=== PATIENT | male | born 1955 | race African-American/Black ===

== ENCOUNTER 2020-05-07 05:20 | Inpatient (IN) | payer OTHER, MEDICAID ==
[~2020-05-07] VITALS: Ht 182.9 cm; Wt 45.7 kg
[2020-05-07] VITALS (9 sets, daily range): BP systolic 127–151; BP diastolic 83–96
[~2020-05-07 05:20] MED LIST: AMLO5TAB15 PO; ASPI81CH43 GT; ATOR40TA52 PO; CINA30TA2 PO; CINA60TA; CLON0.2T PO; CLOT10TR PO; DOCU-94 PO; ERGO1CAP6 PO; FOLI0.8T2 PO; HYDR-4298 PO; LEVE500T32 PO; MAGN400T21 PO; MED20T PO; METO-281 PO; MIRT15TA PO; MIRT30TA PO; MYCO360T; MYCO500T PO; NORT25CA PO; OMEP20TA44 PO; PANC3600 OR; PERCOT PO; PROGRAF 1 MG; SERT25TA84 PO; TACR1CAP4 PO; TAM04C PO; TER5T PO
[2020-05-07] MEDS ORDERED: ETOMIDATE (2MG/ML) 20ML VIAL IV ONE ×2 (05:26→06:45)
[2020-05-07] MEDS ORDERED: SUCCINYLCHOLINE CHLORIDE 20 MG/ML 10ML VIAL IV ONE ×2 (05:27→06:45)
[2020-05-07] MEDS ORDERED: NALOXONE HCL 1MG/ML 2ML SYRINGE ONE (05:30)
[2020-05-07] MEDS ORDERED: MIDAZOLAM DRIP 50 mg/50mL 50 ML IV ONE (05:42)
[2020-05-07 06:22] LABS: Basophils # (auto) 0 10 ^3/uL (0-0.2); Hemoglobin 11.2 g/dL (13.5-17.5); Monocytes # (auto) 0.2 10 ^3/uL (0-1.3); Neutrophils # (auto) 2.2 10 ^3/uL (1.6-8.6); White Blood Cell 3.9 10^3/uL (4.4-10.8)
[2020-05-07 06:24] LABS: Basophils % (auto) 0.5 % (0.0-2.0); Eosinophils # (auto) 0 10 ^3/uL (0-0.8); Eosinophils % (auto) 0.8 % (0.0-7.0); Hematocrit 37.3 % (41.0-53.0); Lymphocytes # (auto) 1.5 10 ^3/uL (0.4-5.4); Lymphocytes % (auto) 37.5 % (10.0-50.0); Mean Corpuscular Hemoglobin 26.3 pg (28.0-32.0); Mean Corpuscular Hgb Conc. 29.9 g/dL (32.0-36.0); Mean Corpuscular Volume 87.9 fL (80.0-100.0); Monocytes % (auto) 4.4 % (0.0-12.0); Neutrophils % (auto) 56.8 % (37.0-80.0); Nucleated Red Blood Cells % 0.2 %; Platelet Count (auto) 95 10^3/uL (140-450); Red Blood Cells 4.24 10^6/uL (4.5-5.90); Red Cell Distribution Width 18.6 % (11.8-14.3); Urine Bacteria FEW /hpf (None Seen); Urine Blood Negative /uL (Negative); Urine Specific Gravity 1.013 (1.001-1.035); Urine WBC 1 /hpf (0 - 3)
--- NOTE | 2020-05-07 06:32 | NUR ---
TITRATED FIO2 TO 90%. SPO2 100%.
[2020-05-07 06:43] LABS: Lactic Acid w/Reflex 2.3 mmol/L (0.4-2.0)
[2020-05-07 06:44] LABS: INR 1.23 (0.9-1.15); Partial Thromboplastin Time 33.3 sec (23.0-31.2)
[2020-05-07] MEDS ORDERED: NALOXONE HCL 1MG/ML 2ML SYRINGE IV ONE (06:45)
[2020-05-07 07:03] LABS: Albumin 1.9 g/dL (3.4-5.0); Anion Gap 5 (5-15); Blood Urea Nitrogen 26 mg/dL (7-18); Calcium 10.2 mg/dL (8.5-10.1); Carbon Dioxide 22 mmol/L (21-32); Chloride 114 mmol/L (98-107); Magnesium 2.1 mg/dL (1.6-2.6); Potassium 4.5 mmol/L (3.5-5.1); Sodium 141 mmol/L (136-145)
[2020-05-07 07:04] LABS: Alcohol, Urine < 3.0 mg/dL (0-10); Amphetamine Screen, Urine NEGATIVE (NEGATIVE); Barbiturate Scree,Urine NEGATIVE (NEGATIVE); Benzodiazephine Screen, Urine NEGATIVE (NEGATIVE); Cannabinoid Screen, Urine NEGATIVE (NEGATIVE); Cocaine Screen, Urine NEGATIVE (NEGATIVE); Opiate Scree,Urine NEGATIVE (NEGATIVE); Phencyclidine Screen, Urine NEGATIVE (NEGATIVE)
[2020-05-07 07:12] LABS: Alanine Aminotransferase 38 U/L (16-61); Alkaline Phosphatase 96 U/L (45-117); Aspartate Aminotransferase 42 U/L (15-37); BUN/Creatinine Ratio 8.1; Bilirubin, Total 0.3 mg/dL (0.2-1.0); GFR African American 25 mL/min; GFR Non-African American 21 mL/min
[2020-05-07] MEDS: MIDAZOLAM DRIP 50 mg/50mL 50 ML IV SCH (07:15)
[2020-05-07 07:35] LABS: Blood Alcohol < 3.0 mg/dL (0-5)
[2020-05-07 07:36] LABS: Glucose 525 mg/dL (74-106)
[2020-05-07] MEDS ORDERED: AZITHROMYCIN 500MG/ 250ML 250 ML IV ONE (08:00)
[2020-05-07] MEDS ORDERED: cefTRIAXone 1GM/50ML D5W 50 ML IV ONE (08:00)
[2020-05-07] MEDS ORDERED: DexAMETHasone SOD PHOS 10MG/1ML VIAL INJ IV ONE (08:00)
[2020-05-07] MEDS ORDERED: InsuLIN REG 1unit/0.01ml Soln (100units/ml) IV ONE (09:00)
[2020-05-07] MEDS ORDERED: SODIUM CHLORIDE 0.9% 1,000 ML IV SCH (09:07)
[2020-05-07] MEDS ORDERED: MORPHINE SULF INJ 2 MG/ML SYRINGE 1ML IV PRN ×2 (09:15)
[2020-05-07] MEDS ORDERED: DEXTROSE (50%) 50ML SYRG IV PRN (09:15)
[2020-05-07] MEDS ORDERED: ALBUTEROL SULF 2.5 MG/0.5ML(0.5%) NEB SOLN NEB PRN (09:15)
[2020-05-07] MEDS ORDERED: NITROGLYCERIN 0.4 MG SL TAB SL PRN (09:15)
[2020-05-07] MEDS ORDERED: PIPERACILLIN-TAZOB 2.25GM 50 ML IV ONE (10:00)
[2020-05-07] MEDS ORDERED: ZINC SULFATE 220mg CAP or TAB PO SCH (10:00)
[2020-05-07] MEDS ORDERED: ASCORBIC ACID 1,000 MG TAB NG SCH (10:00)
[2020-05-07] MEDS: AZITHROMYCIN 500MG/ 250ML 250 ML IV SCH (10:00)
[2020-05-07] MEDS ORDERED: DexAMETHasone SOD PHOS 10MG/1ML VIAL INJ IV SCH (10:00)
[2020-05-07] MEDS ORDERED: CHOLECALCIFEROL (VITD3) 2,000 UNIT CAP PO SCH (10:00)
[2020-05-07] MEDS ORDERED: ENOXAPARIN SOD 30 MG/0.3 ML SYRINGE SC SCH (10:00)
[2020-05-07] MEDS: FOLIC ACID PO SCH (10:00)
[2020-05-07] MEDS ORDERED: CHOLECALCIFEROL (VITD3) 1,000UNIT=25mCg TAB GT SCH (11:10)
[2020-05-07] MEDS: ASPirin 81 mg TAB GT SCH (11:14)
[2020-05-07] MEDS: levETIRAcetam 500 MG TAB PO SCH ×2 (11:16→22:10)
[2020-05-07 11:39] LABS: Acetaminophen 4.2 ug/mL (10-30); Salicylate < 1.7 mg/dL (2.8-20.0)
[2020-05-07] MEDS: LINEZOLID 600MG/300ML 300 ML IV SCH ×2 (12:39→22:08)
[2020-05-07] MEDS: MYCOPHENOLATE 500 MG TAB PO SCH ×2 (12:39→22:00)
[2020-05-07] MEDS: TACROLIMUS 1 MG CAP PO SCH ×2 (12:40→22:00)
[2020-05-07] MEDS: ACCU-CHEK COMFORT CURVE STRIP VI SCH ×4 (13:42→23:56)
[2020-05-07] MEDS: IPRATROPIUM BROM 0.5 MG/2.5ML INH SOL NEB SCH ×2 (13:46→18:00)
[2020-05-07] MEDS: ALBUTEROL SULF 2.5 MG/0.5ML(0.5%) NEB SOLN NEB SCH ×2 (13:46→18:00)
[2020-05-07] MEDS: InsuLIN REG 1unit/0.01ml Soln (100units/ml) SC SCH ×4 (13:53→23:57)
--- NOTE | 2020-05-07 14:35 | NUR ---
PT TRANSPORTED TO CT WITH NO INCIDENT REPORTED. VENTILATED PT WITH AMBUBAG. PT ON CARDIAC MONITORING WITH SPO2 100%. WILL CONTINUE TO MONITOR PT.
[2020-05-07] MEDS: SODIUM BICARBONATE 50ML VIAL 50 ML in SOD CHL 0.45% 1,000 ML IV SCH ×2 (15:03→23:45)
[2020-05-07] MEDS: PIPERACILLIN-TAZOB 2.25GM 50 ML IV SCH (18:24)
[2020-05-07] MEDS: MIRTAZAPINE 30 MG TAB PO SCH (18:25)
[2020-05-07] MEDS: ATORVASTATIN 20 MG TAB PO SCH (22:10)
[2020-05-08] VITALS (54 sets, daily range): BP systolic 122–141; BP diastolic 71–99
[2020-05-08] MEDS: PIPERACILLIN-TAZOB 2.25GM 50 ML IV SCH ×4 (00:13→22:00)
[2020-05-08] MEDS: ALBUTEROL SULF 2.5 MG/0.5ML(0.5%) NEB SOLN NEB SCH ×4 (01:10→18:30)
[2020-05-08] MEDS: IPRATROPIUM BROM 0.5 MG/2.5ML INH SOL NEB SCH ×4 (01:10→18:30)
[2020-05-08] MEDS: InsuLIN REG 1unit/0.01ml Soln (100units/ml) SC SCH ×2 (04:32→08:30)
[2020-05-08] MEDS: ACCU-CHEK COMFORT CURVE STRIP VI SCH ×2 (04:33→08:00)
[2020-05-08 06:04] LABS: Basophils # (auto) 0 10 ^3/uL (0-0.2); Basophils % (auto) 0.4 % (0.0-2.0); Eosinophils # (auto) 0 10 ^3/uL (0-0.8); Eosinophils % (auto) 0.1 % (0.0-7.0); Hematocrit 36.9 % (41.0-53.0); Hemoglobin 11.8 g/dL (13.5-17.5); Lymphocytes # (auto) 1.4 10 ^3/uL (0.4-5.4); Lymphocytes % (auto) 31.4 % (10.0-50.0); Mean Corpuscular Hemoglobin 26.6 pg (28.0-32.0); Mean Corpuscular Hgb Conc. 32.1 g/dL (32.0-36.0); Mean Corpuscular Volume 83.1 fL (80.0-100.0); Monocytes # (auto) 0.2 10 ^3/uL (0-1.3); Monocytes % (auto) 4.9 % (0.0-12.0); Neutrophils # (auto) 2.9 10 ^3/uL (1.6-8.6); Neutrophils % (auto) 63.2 % (37.0-80.0); Nucleated Red Blood Cells % 0.1 %; Platelet Count (auto) 103 10^3/uL (140-450); Red Blood Cells 4.44 10^6/uL (4.5-5.90); Red Cell Distribution Width 18.4 % (11.8-14.3); White Blood Cell 4.6 10^3/uL (4.4-10.8)
[2020-05-08 06:16] LABS: Calcium 10.5 mg/dL (8.5-10.1); Potassium 4.7 mmol/L (3.5-5.1)
[2020-05-08 06:20] LABS: Bilirubin, Total 0.3 mg/dL (0.2-1.0); Total Protein 5.2 g/dL (6.4-8.2)
[2020-05-08] MEDS: MIDAZOLAM DRIP 50 mg/50mL 50 ML IV SCH (06:51)
--- NOTE | 2020-05-08 09:00 | NUR ---
RT NOTE: PT TRANSPORTED TO ICU BED 103 VIA AMBU BAG AT 15L. 2 RNS AND RT AT BEDSIDE. TRANSPORT OCCURED W/O INCIDENT. TRANSFERED TO ICU BED AND PLACED BACK ONTO VENT. WILL CONTINUE TO MONITOR.
[2020-05-08] MEDS: FOLIC ACID PO SCH (10:00)
[2020-05-08] MEDS: TACROLIMUS 1 MG CAP PO SCH ×2 (10:00→22:00)
--- NOTE | 2020-05-08 10:30 | NUR ---
Midline Placement (x2): 18g/10cm midline inserted via right basilic vein and left brachial using Ultrasound. Sterile technique utilized. Blood return obtained from each lumen and flushed easily with NS using proper technique. Midlines secured with saline lock; biodisc and occlusive dressings applied. Primary RN notified. RUE Midline lot #[id number] CORKYE Midline lot #[id number]
[2020-05-08] MEDS: ASPirin 81 mg TAB GT SCH (11:01)
[2020-05-08] MEDS: ENOXAPARIN SOD 30 MG/0.3 ML SYRINGE SC SCH (11:01)
[2020-05-08] MEDS: levETIRAcetam 500 MG TAB PO SCH ×2 (11:02→22:00)
[2020-05-08] MEDS: MYCOPHENOLATE 1000mg/5ml ORALsusp 200mg/ml PO SCH ×2 (11:02→22:00)
[2020-05-08] MEDS: AZITHROMYCIN 500MG/ 250ML 250 ML IV SCH (11:02)
[2020-05-08] MEDS: SODIUM BICARBONATE 50ML VIAL 50 ML in SOD CHL 0.45% 1,000 ML IV SCH (11:03)
--- NOTE | 2020-05-08 11:55 | NUR ---
Admit to ICU from ER on vent. Arrived at 0901 [place] ALCOCERdmitted to ICU via gurney on monitoring analyst, intubated and being bagged by Respiratory Therapist. Patient transfered to bed, connected to mechanical ventilator by Anna therapistSASHA at bedside. Patient connected to ICU monitoring, oriented to Sarah Lobo, RN primary RN, unit, ventilator and sedation. NOTE: Received report from Jermaine COLLIER. Being treated for multiple problems. Arrived with sedation ifusing, Versed at 5mg/hour. Does attempt to open eyes when spoken to and does move head and arms when stimulated. Noted ecchymosis to left flank area. Also dried abrasion/scab to left knee. Both arms swollen, left greater than right. Ultrasound study done to left arm, negative for DVT. Arrived to hospital with existing PICC line to right upper chest area. Per chest xray in to deep. Not utilizing line. Cindy COLLIER (PICC line nurse) was in to evalutate line. Per Cindy not familiar with line. Placed to midlines. One in the right upper arm and one in the left upper arm. Dr. Richey will resumed care. In to round at 1105. Disscussed condition and plan of care. Dr. Ventura was consulted for pulmonary consult (ventilator management). In at 1115 and discussed new order. Dr. Pandey, package wrapper on case and was also in at 1105. Discussed condition and reveiwed orders. Collected urine and sent to lab.
[2020-05-08 12:10] LABS: Creatinine, Urine 44 mg/dL (30.0-125.0); Sodium Urine 90 mmol/L (40-220)
[2020-05-08] MEDS ORDERED: PANTOPRAZOLE 40 MG/10 ML VIAL INJ IV ONE (13:15)
[2020-05-08] MEDS: LINEZOLID 600MG/300ML 300 ML IV SCH (13:24)
--- NOTE | 2020-05-08 15:31 | NUR ---
Held scheduled Folic Acid. Home medication and unavailable. Will have to hold scheduled 1800 Prograf dose, can not crush or break. Josselin Rush SEQUENCING MACHINE OPERATOR in unit at 1518. Discussed Echocardiogram findings; small pericardial effusion. Contacted Dr. Richey and talita to place a Cardiology consult with Dr. Roberts.
[2020-05-08] MEDS: MIRTAZAPINE 30 MG TAB PO SCH (18:38)
--- NOTE | 2020-05-08 19:20 | NUR ---
Attempted to call family twice earlier today and received a call from Anahi Carrington (). Discussed admission, updated on condition and plan of care. Large right side pleural effusion and Thoracentesis scheduled for tomorrow with Dr. Kruse. Procedure discussed and obtained consent from .
--- NOTE | 2020-05-08 19:40 | NUR ---
REPORT RECEIVED AND ASSUMED CARE; SEE INTERVENTIONS FOR ASSESSMENT; VS STABLE AT THIS TIME W/ EXCEPTION OF TEMP= 39.0 F/RECTALLY-WARMING MEASURES STARTED WITH BEAR HUGGER ON AT MAX/WARM BLANKETS ON/HEATING LIGHT ON; SEE IV SPREADSHEET FOR GTTS; WILL CONT. TO MONITOR.
--- NOTE | 2020-05-08 20:00 | NUR ---
Unable to complete suicide severity rating scale and guidelines to risk level. Intubated and sedated and unable to answer. Per patient is on Prograf, Myfortic, Cellcept and Tacrolimus secondary to kidney transplant.
--- NOTE | 2020-05-08 21:00 | NUR ---
NO SEDATION VACATION PERFORMED-NOT APPROPRIATE AT THIS TIME.
[2020-05-08] MEDS: ATORVASTATIN 20 MG TAB PO SCH (22:00)
[2020-05-09] VITALS (66 sets, daily range): BP systolic 104–156; BP diastolic 63–92
[2020-05-09] MEDS: ALBUTEROL SULF 2.5 MG/0.5ML(0.5%) NEB SOLN NEB SCH ×4 (00:23→18:39)
[2020-05-09] MEDS: IPRATROPIUM BROM 0.5 MG/2.5ML INH SOL NEB SCH ×4 (00:23→18:39)
[2020-05-09] MEDS: LINEZOLID 600MG/300ML 300 ML IV SCH ×2 (03:20→12:00)
[2020-05-09] MEDS: PIPERACILLIN-TAZOB 2.25GM 50 ML IV SCH ×4 (05:25→22:00)
[2020-05-09 05:39] LABS: Basophils # (auto) 0 10 ^3/uL (0-0.2); Basophils % (auto) 0.6 % (0.0-2.0); Eosinophils # (auto) 0.1 10 ^3/uL (0-0.8); Hemoglobin 10.7 g/dL (13.5-17.5); Lymphocytes # (auto) 1.1 10 ^3/uL (0.4-5.4); Monocytes # (auto) 0.2 10 ^3/uL (0-1.3); Red Cell Distribution Width 18.4 % (11.8-14.3)
[2020-05-09 05:42] LABS: Eosinophils % (auto) 2.7 % (0.0-7.0); Lymphocytes % (auto) 34.9 % (10.0-50.0); Mean Corpuscular Hemoglobin 26.1 pg (28.0-32.0); Mean Corpuscular Hgb Conc. 31.4 g/dL (32.0-36.0); Mean Corpuscular Volume 83.3 fL (80.0-100.0); Monocytes % (auto) 7.1 % (0.0-12.0); Neutrophils # (auto) 1.7 10 ^3/uL (1.6-8.6); Neutrophils % (auto) 54.7 % (37.0-80.0); Platelet Count (auto) 96 10^3/uL (140-450); Red Blood Cells 4.09 10^6/uL (4.5-5.90)
[2020-05-09 05:55] LABS: Albumin 1.7 g/dL (3.4-5.0); Calcium 9.9 mg/dL (8.5-10.1); Potassium 4.3 mmol/L (3.5-5.1)
[2020-05-09 06:02] LABS: BUN/Creatinine Ratio 9.6; Bilirubin, Total 0.4 mg/dL (0.2-1.0); Total Protein 4.4 g/dL (6.4-8.2)
[2020-05-09] MEDS: MIDAZOLAM DRIP 50 mg/50mL 50 ML IV SCH (06:42)
--- NOTE | 2020-05-09 07:30 | NUR ---
REPORT RECEIVED FROM TURRET PRESS OPERATOR NURSE. PATIENT RESTING IN BED INTUBATED AND SEDATED. RESPIRATIONS EVEN AND UNLABORED. NO SIGNS OF ACUTE DISTRESS NOTED. BED IN LOW POSITION. WILL CONTINUE TO MONITOR.
[2020-05-09] MEDS ORDERED: FUROSEMIDE 40 MG/4 ML VIAL IV ONE (08:30)
--- NOTE | 2020-05-09 08:35 | NUR ---
SPOKE TO PHARMACY ABOUT PROGRAFT MEDICATION AND UNABLE TO CRUSH PILL, PER PHARMACIST OK TO OPEN CAPSULE AND ADMINISTER THROUGH NGT.
--- NOTE | 2020-05-09 08:38 | NUR ---
WOUND CARE NOTE: Wound care in to see patient due to intubation status and low Rod score of 12, putting patient to high risk for skin breakdown. Patient is 64 years old male with admitting diagnosis of Acute Resp Failure, ALOC. Patient is resting in ICU bed in Rm. 103. Patient is intubated,sedated and mechanically ventilated. Patient appears to be in no pain using Browning Zhao Faces Pain Scale. Skin assessment done with the assistance of patient's nurse, AMIRA Mai. No open wound noted other than dry, scabbed wounds to bilateral knee, large ecchymosis to L lateral rib cage area. Patient also noted with generalized edema prominent to arms and BLE; staff is elevating patient's edematous extremities on pillows. Patient is receiving BID/PRN cleaning and application of Barrier cream to sacrum with preventative Opti foam sacral dressing. Repositioned patient for comfort facing his Lt side, redistributed pressure points with pillows. Patient tolerated well. AMIRA Mai at bedside. RECOMMENDATION: Nursing to continue with BID/PRN cleaning and application of Barrier cream to sacral, buttocks as preventative, frequent turning and repositioning schedule as condition permits, redistribute pressure points with pillows, elevate heels on pillows, continue monitoring by wound care while patient is mechanically ventilated and Rod score is <18. Addendum: 05/09/20 at 1238 by Ene Louie RN Amended: Links added.
--- NOTE | 2020-05-09 08:40 | NUR ---
WOUND CARE NURSE AT BEDSIDE TO ASSESS PATIENT.
--- NOTE | 2020-05-09 09:15 | NUR ---
DR GAITAN AT BEDSIDE TO ASSESS PATIENT AND DISCUSS PLAN OF CARE. PER MD AFTER THORACENTESIS COMPLETED STOP SEDATIONS AND CPAP PATIENT WHEN AWAKE. INFORMED RESPIRATORY THERAPIST.
[2020-05-09] MEDS: FOLIC ACID PO SCH (10:00)
[2020-05-09] MEDS: AZITHROMYCIN 500MG/ 250ML 250 ML IV SCH (10:30)
--- NOTE | 2020-05-09 10:45 | NUR ---
DR PASTRANA AT BEDSIDE WITH IRON LAUNDER OPERATOR AND RADIOLOGY NURSE TO PERFORM THORACENTESIS. REMOVED 850ML FROM THE RIGHT LUNG. PATIENT TOLERATED WELL, VITAL SIGNS STABLE. WILL CONTINUE TO MONITOR.
--- NOTE | 2020-05-09 11:12 | NUR ---
UPDATED ON PATIENT STATUS AND PLAN OF CARE. ALL QUESTIONS AND CONCERNS ADDRESSED AT THIS TIME.
[2020-05-09] MEDS: PANTOPRAZOLE 40 MG/10 ML VIAL INJ IV SCH (11:17)
[2020-05-09] MEDS: ENOXAPARIN SOD 30 MG/0.3 ML SYRINGE SC SCH (11:17)
[2020-05-09] MEDS: ASPirin 81 mg TAB GT SCH (11:17)
[2020-05-09] MEDS: TACROLIMUS 1 MG CAP PO SCH ×2 (11:17→22:00)
[2020-05-09] MEDS: levETIRAcetam 500 MG TAB PO SCH ×2 (11:17→22:00)
[2020-05-09] MEDS: MYCOPHENOLATE 1000mg/5ml ORALsusp 200mg/ml PO SCH ×2 (11:19→22:00)
--- NOTE | 2020-05-09 11:40 | NUR ---
DR JEFFERSON AT BEDSIDE TO ASSESS PATIENT AND DISCUSS PLAN OF CARE. PER MD PATIENT NO LONGER NEEDS SODIUM BICARBONATE DRIP. PER MD START PATIENT ON ALBUMIN 25% 100ML Q12HR X4 DOSES. ALL ORDERS NOTED IN CHART.
--- NOTE | 2020-05-09 12:08 | NUR ---
Nutrition Assessment Notes Please refer to link for full assessment notes. Est Energy needs: 3472-4825 kcals (30-35 kcal/kgBW) Est Protein needs: 51-57 gms/day (0.8-0.9 gm/kgBW) d/t pt with ESRD, no HD Will continue to monitor and reassess prn. Addendum: 05/09/20 at [address] Amended: Links added.
[2020-05-09] MEDS ORDERED: FLUCONAZOLE 200MG/100ML 100 ML IV ONE (16:30)
[2020-05-09] MEDS: MIRTAZAPINE 30 MG TAB PO SCH (18:00)
[2020-05-09] MEDS: ATORVASTATIN 20 MG TAB PO SCH (22:00)
[2020-05-09] MEDS: ALBUMIN 25% 100 ML IV SCH (22:00)
[2020-05-10] VITALS (44 sets, daily range): BP systolic 130–178; BP diastolic 77–118
[2020-05-10] MEDS: IPRATROPIUM BROM 0.5 MG/2.5ML INH SOL NEB SCH ×4 (00:36→19:16)
[2020-05-10] MEDS: ALBUTEROL SULF 2.5 MG/0.5ML(0.5%) NEB SOLN NEB SCH ×4 (00:37→19:16)
--- NOTE | 2020-05-10 02:12 | NUR ---
ACCUCHECK = 240; NO ISS ORDERED AND WILL REPORT IN AM.
[2020-05-10] MEDS: PIPERACILLIN-TAZOB 2.25GM 50 ML IV SCH ×4 (04:00→22:00)
[2020-05-10 04:37] LABS: Albumin 2.3 g/dL (3.4-5.0); Potassium 3.9 mmol/L (3.5-5.1)
[2020-05-10 04:42] LABS: Bilirubin, Total 0.5 mg/dL (0.2-1.0)
[2020-05-10] MEDS: MIDAZOLAM DRIP 50 mg/50mL 50 ML IV SCH (06:42)
--- NOTE | 2020-05-10 07:25 | NUR ---
REPORT REPORT RECEIVED FROM ROXANNE COLLIER, CARE ASSUMED. VS REMAINING STABLE AT THIS TIME.
--- NOTE | 2020-05-10 08:10 | NUR ---
INITIAL CONTACT PHYSICAL ASSESSMENT COMPLETE. PT RESTING IN BED, INTUBATED ON MECHANICAL VENTILATOR. PT TOLERATING WELL AT THIS TIME. OXYGEN SATURATION 100%, NO SIGNS OF DISTRESS. PT OFF SEDATION SINCE 05/09/20. PT ABLE TO OPEN EYES TO VOICE. PT UNABLE TO STAY AWAKE OR MOVE EXTREMITIES AT THIS TIME. AFEBRILE. PULSES PALPABLE RADIAL AND PEDAL BILATERALLY. PITTING EDEMA PRESENT. SINUS RHYTHM 70'S NOTED ON BEDSIDE MONITOR. NGT CLAMPED, MOORE CATHETER PRESENT, PATENT, AND SECURED BELOW BLADDER. SEE SKIN/WOUND ASSESSMENT. RIGHT UPPER CHEST PICC LINE PRESENT, PLACED PRIOR TO ADMISSION, NOT IN USE DUE TO MALPOSITION. ALL OTHER VS STABLE AT THIS TIME. BED LOCKED IN LOWEST POSITION, PT ON FREQUENT TURNING SCHEDULE. WILL CONTINUE TO MONITOR.
[2020-05-10] MEDS ORDERED: DEXTROSE (50%) 50ML SYRG IV PRN (09:00)
--- NOTE | 2020-05-10 09:18 | NUR ---
MD VISIT DR.BAVEJA ESPINOZA AT BEDSIDE. UPDATED ON NEURO STATUS AND PLAN OF CARE. WILL ATTEMPT CPAP TRIAL WHEN PATIENT IS MORE AWAKE AND ABLE TO FOLLOW COMMANDS.
--- NOTE | 2020-05-10 09:20 | NUR ---
POISON CONTROL SPOKE WITH CRISSY FROM POISON CONTROL. UPDATED ON LABS AND STATUS.
[2020-05-10] MEDS: FUROSEMIDE 40 MG/4 ML VIAL IV SCH (10:00)
[2020-05-10] MEDS: TACROLIMUS 1 MG CAP PO SCH ×2 (10:00→22:00)
[2020-05-10] MEDS: ENOXAPARIN SOD 30 MG/0.3 ML SYRINGE SC SCH ×2 (10:00→10:40)
[2020-05-10] MEDS: FOLIC ACID PO SCH (10:00)
--- NOTE | 2020-05-10 10:30 | NUR ---
FAMILY SPOKE WITH PT REGARDING STATUS AND PLAN OF CARE. CONSENT OBTAINED FOR THORACENTESIS TODAY.
[2020-05-10] MEDS: PANTOPRAZOLE 40 MG/10 ML VIAL INJ IV SCH (10:37)
[2020-05-10] MEDS: ASPirin 81 mg TAB GT SCH (10:38)
[2020-05-10] MEDS: ALBUMIN 25% 100 ML IV SCH ×2 (10:38→22:00)
[2020-05-10] MEDS: MYCOPHENOLATE 1000mg/5ml ORALsusp 200mg/ml PO SCH ×2 (10:39→22:00)
[2020-05-10] MEDS: levETIRAcetam 500 MG TAB PO SCH ×2 (10:39→22:00)
--- NOTE | 2020-05-10 11:12 | NUR ---
RADIOLOGY MOBILE PATROL OFFICER AT BEDSIDE.
--- NOTE | 2020-05-10 11:30 | NUR ---
THORACENTESIS AT BEDSIDE FOR LEFT THORACENTESIS. 700 CC STRAW COLORED FLUID REMOVED. INSERTION SITE INTACT, NO BLEEDING OR HEMATOMA NOTED.
[2020-05-10] MEDS: InsuLIN REG 1unit/0.01ml Soln (100units/ml) SC SCH ×2 (12:00→17:52)
[2020-05-10] MEDS: LINEZOLID 600MG/300ML 300 ML IV SCH ×2 (12:00)
[2020-05-10] MEDS: ACCU-CHEK COMFORT CURVE STRIP VI SCH ×2 (12:00→17:48)
--- NOTE | 2020-05-10 12:28 | NUR ---
assessment Patient is a 64 year old male who is on a vent in ICU. Per patients Anahi prior to admission patient lived home with her and needed assistance. Patient has a hospital bed, blade lift, bedside commode, shower chair, fww, oxygen, and cpap for home use. Patients PCP is Dr Caba at [facility] per Anahi. Anahi informed me she called 911 due to patient having shortness of breath. Patient was admitted and put on a vent. I informed Anahi patients post discharge needs to be determined after extubation and prior to discharge. Anahi informed me she refuses SNF placement and she informed me we can discuss other options, but no SNF. I will continue to monitor and follow up as appropriate. Anahi verbalized understanding. Addendum: 05/11/20 at 1233 by Dilcia CANTU Amended: Links added.
--- NOTE | 2020-05-10 12:30 | NUR ---
BLEEDING LEFT LATERAL CHEST THORACENTESIS SITE, SMALL AMOUNT OF BLEEDING NOTED AT SIGHT. UPON ASSESSMENT, INSERTION SITE STILL HAVING SMALL AMOUNT OF DRAINAGE. MANUAL PRESSURE HELD. SITE CLEANSED AND NEW PRESSURE DRESSING APPLIED. PARTIAL LINEN CHANGE COMPLETE WITH GOWN CHANGE. VS REMAINING STABLE AT THIS TIME. WILL CONTINUE TO ASSESS AND MONITOR SITE.
[2020-05-10] MEDS: AZITHROMYCIN 500MG/ 250ML 250 ML IV SCH (13:15)
--- NOTE | 2020-05-10 13:25 | NUR ---
ECHO TECHNICIAN AUTOMATIC AT BEDSIDE.
--- NOTE | 2020-05-10 14:00 | NUR ---
PAGED PAGED REGARDING MEDICATION HELD- ZYVOX DUE TO TRENDING DOWN PLATELET COUNT. MD AWARE. ORDERS OBTAINED TO D/C MEDICATION.
[2020-05-10] MEDS: FLUCONAZOLE 200MG/100ML 100 ML IV SCH (15:04)
--- NOTE | 2020-05-10 16:50 | NUR ---
CARES PARTIAL LINEN CHANGE COMPLETE. PT OPENS EYES AND TRACKS FOR SHORT PERIOD OF TIME BEFORE FALLING ASLEEP. VS REMAINING STABLE. SKIN INTACT. WILL CONTINUE TO MONITOR.
--- NOTE | 2020-05-10 17:12 | NUR ---
FAMILY SPOKE WITH PT REGARDING STATUS AND PLAN OF CARE.
--- NOTE | 2020-05-10 17:40 | NUR ---
PAGED PAGED REGARDING PICC LINE POSITION, AWAITING CALL BACK.
[2020-05-10] MEDS: MIRTAZAPINE 30 MG TAB PO SCH (17:53)
--- NOTE | 2020-05-10 18:10 | NUR ---
PAGED HOSPITALIST PAGED REGARDING MALPOSITION OF PICC LINE. ORDERS OBTAINED FOR REMOVAL BY .
--- NOTE | 2020-05-10 19:30 | NUR ---
REPORT RECEIVED AND ASSUMED CARE; SEE INTERVENTIONS FOR ASSESSMENT; SEE IV SPREADSHEET FOR GTTS; VS STABLE AT THIS TIME; PT. TEMP 97.1 RECTALLY AND PT. COVERED WITH A COUPLE OF BLANKETS AND WARMING LIGHT ON; PT. CONTINUES TO REMAIN OFF SEDATION AND STILL LETHARGIC/SLEEPY; PT. INTUBATED/VENTED; WILL CONT. TO MONITOR.
--- NOTE | 2020-05-10 19:34 | NUR ---
REPORT REPORT GIVEN TO ROXANNE COLLIER, CARE ENDORSED.
[2020-05-10] MEDS ORDERED: INSULIN LANTUS (GLARGINE) 1 /0.01ml (100units/ml) SC SCH (22:00)
[2020-05-10] MEDS: ATORVASTATIN 20 MG TAB PO SCH (22:00)
[2020-05-11] VITALS (32 sets, daily range): BP systolic 115–162; BP diastolic 77–103
[2020-05-11] MEDS: ALBUTEROL SULF 2.5 MG/0.5ML(0.5%) NEB SOLN NEB SCH ×4 (00:29→18:10)
[2020-05-11] MEDS: IPRATROPIUM BROM 0.5 MG/2.5ML INH SOL NEB SCH ×4 (00:30→18:10)
[2020-05-11] MEDS: InsuLIN REG 1unit/0.01ml Soln (100units/ml) SC SCH ×4 (02:28→18:00)
[2020-05-11] MEDS: PIPERACILLIN-TAZOB 2.25GM 50 ML IV SCH ×4 (04:27→23:00)
[2020-05-11 05:14] LABS: Basophils # (auto) 0 10 ^3/uL (0-0.2); Eosinophils # (auto) 0.2 10 ^3/uL (0-0.8); Hemoglobin 10.4 g/dL (13.5-17.5); Lymphocytes # (auto) 0.9 10 ^3/uL (0.4-5.4); Monocytes # (auto) 0.4 10 ^3/uL (0-1.3); Nucleated Red Blood Cells % 0.1 %; White Blood Cell 3.7 10^3/uL (4.4-10.8)
[2020-05-11 05:16] LABS: Eosinophils % (auto) 4.6 % (0.0-7.0); Hematocrit 32.8 % (41.0-53.0); Lymphocytes % (auto) 25.5 % (10.0-50.0); Mean Corpuscular Hemoglobin 26.1 pg (28.0-32.0); Mean Corpuscular Hgb Conc. 31.6 g/dL (32.0-36.0); Mean Corpuscular Volume 82.6 fL (80.0-100.0); Monocytes % (auto) 9.6 % (0.0-12.0); Neutrophils # (auto) 2.2 10 ^3/uL (1.6-8.6); Neutrophils % (auto) 59.3 % (37.0-80.0); Platelet Count (auto) 91 10^3/uL (140-450); Red Blood Cells 3.97 10^6/uL (4.5-5.90); Red Cell Distribution Width 18.2 % (11.8-14.3)
[2020-05-11 05:32] LABS: Albumin 2.3 g/dL (3.4-5.0); Calcium 10.1 mg/dL (8.5-10.1); Potassium 3.3 mmol/L (3.5-5.1)
[2020-05-11 05:37] LABS: BUN/Creatinine Ratio 8.6; Bilirubin, Total 0.4 mg/dL (0.2-1.0)
[2020-05-11] MEDS: ACCU-CHEK COMFORT CURVE STRIP VI SCH ×4 (06:30→18:02)
[2020-05-11] MEDS: MIDAZOLAM DRIP 50 mg/50mL 50 ML IV SCH (06:42)
[2020-05-11] MEDS: TACROLIMUS 1 MG CAP PO SCH ×2 (08:25→22:00)
[2020-05-11] MEDS: POTASSIUM CHL 20MEQ/100ML 100 ML IV SCH ×2 (08:37→10:00)
[2020-05-11] MEDS: AZITHROMYCIN 500MG/ 250ML 250 ML IV SCH (08:37)
--- NOTE | 2020-05-11 08:45 | NUR ---
Complaint Investigations Officer at bedside Md updated on patients status. Patient flutters eyes during cares but is not opening eye spontaneously, not follow commands. Patient remains off all sedation. Tolerating ventilator well. See interventions. Heated lamp remains in place.
[2020-05-11] MEDS: FOLIC ACID PO SCH (10:00)
--- NOTE | 2020-05-11 11:30 | NUR ---
MD ROUNDS DR. JORDAN AT BEDSIDE. SEE MD ORDERS.
--- NOTE | 2020-05-11 11:40 | NUR ---
PLATELET COUNT/ LOVENOX PLATELET COUNT 91 TODAY, PHARMACY CALLING TO VERIFY WITH MD IF OK TO GIVE. REVIEWED WITH DR. JORDAN. STATED OK TO GIVEN, HOLD ONLY IF PLT LESS THAN 50.
--- NOTE | 2020-05-11 11:41 | NUR ---
Nutrition Followup Notes Wt: 63.7 kg Pt`s intubated sedated with no family by bedside. pt is currently NPO with no new diet orders. pt with JOSE on ckd and post kidney transplant per records Est Energy needs: 9021-3061 kcals (30-35 kcal/kgBW), Est Protein needs: 51-57 gms/day (0.8-0.9 gm/kgBW) d/t pt with ESRD, no HD. Will continue to monitor and reassess prn. LABS: BUN 19 H, CREAT 2.2 H ALB 2.3 L GLU 182 H GI: Pt had 1 BM on 05/09 per RN doc BS: 12 high risk. Refer to wound assessment report for full details. PES: 1) Increased nutrient needs aeb pt is sedated, intubated, NPO r/t pt with no PO intake 2) Altered nutrition related lab values aeb hyperglycemia, elev RFTs, low GFR, severe hypoalbuminemia r/t current/chronic medical condition Comments: will continue to F/u skin status NPO status. F/u high 2-3 days Rec: 1) Continue to carefully monitor pt NPO status. 2) If pt remains NPO over the next 48 hours, consider Glucerna 1.2 @ 70 ml/hr as tolerated and per MD approval. 3) Gradually advance pt to oral CCHO 60g/Renal Specific 50g Protein,2gmNa,K2,lowphos diet when medically feasible and as tolerated 4) Continue current plan of care
--- NOTE | 2020-05-11 12:11 | NUR ---
PAGED DR. RON PAGED IS CONCERNED REGARDING PROGRAFT THAT IS BEING HELD AT THIS TIME. PER PHARMACY, MEDICATION CANNOT BE CRUSHED. PAGED TO NOTIFY. ASKING IF MD CAN SPEAK TO PATIENTS EXECUTIVE SEARCH CONSULTANT REGARDING CONCERN.
[2020-05-11] MEDS: ALBUMIN 25% 100 ML IV SCH (12:28)
[2020-05-11] MEDS: ENOXAPARIN SOD 30 MG/0.3 ML SYRINGE SC SCH (12:28)
[2020-05-11] MEDS: PANTOPRAZOLE 40 MG/10 ML VIAL INJ IV SCH (12:28)
[2020-05-11] MEDS: CARVEDILOL 12.5 MG TAB PO SCH ×2 (12:29→23:00)
[2020-05-11] MEDS: levETIRAcetam 500 MG TAB PO SCH ×2 (12:29→23:00)
[2020-05-11] MEDS: ASPirin 81 mg TAB GT SCH (12:29)
[2020-05-11] MEDS: MYCOPHENOLATE 1000mg/5ml ORALsusp 200mg/ml PO SCH ×2 (12:29→23:00)
[2020-05-11] MEDS: FUROSEMIDE 40 MG/4 ML VIAL IV SCH (12:30)
[2020-05-11] MEDS ORDERED: Glucerna 1.2 Cal 1Liter BOTTLE GT SCH (13:00)
--- NOTE | 2020-05-11 13:03 | NUR ---
Md called back Dr. Richey aware of 's concern. MD to contact pharmacy and .
[2020-05-11] MEDS: FLUCONAZOLE 200MG/100ML 100 ML IV SCH (15:00)
[2020-05-11] MEDS: MIRTAZAPINE 30 MG TAB PO SCH (18:08)
--- NOTE | 2020-05-11 19:45 | NUR ---
REPORT RECEIVED AND ASSUMED CARE; SEE INTERVENTIONS FOR ASSESSMENT; VS STABLE AT THIS TIME; WILL CONT. TO MONITOR.
[2020-05-11] MEDS: ATORVASTATIN 20 MG TAB PO SCH (23:00)
[2020-05-12] VITALS (32 sets, daily range): BP systolic 122–178; BP diastolic 71–112
--- NOTE | 2020-05-12 01:00 | NUR ---
PT. RECEIVED BED BATH, LINEN CHNAGE, AND RIK-CARE PT. HAD MODERATE BM-SMALL, MUCOID, LIGHT BROWN AND LOOSE.
[2020-05-12] MEDS: PIPERACILLIN-TAZOB 2.25GM 50 ML IV SCH ×4 (04:00→21:42)
[2020-05-12] MEDS: InsuLIN REG 1unit/0.01ml Soln (100units/ml) SC SCH ×4 (06:00→18:27)
[2020-05-12] MEDS: ACCU-CHEK COMFORT CURVE STRIP VI SCH ×4 (06:00→18:27)
[2020-05-12] MEDS: IPRATROPIUM BROM 0.5 MG/2.5ML INH SOL NEB SCH ×4 (06:41→18:20)
[2020-05-12] MEDS: ALBUTEROL SULF 2.5 MG/0.5ML(0.5%) NEB SOLN NEB SCH ×4 (06:41→18:20)
[2020-05-12] MEDS: MIDAZOLAM DRIP 50 mg/50mL 50 ML IV SCH (06:42)
[2020-05-12 07:05] LABS: Albumin 2.5 g/dL (3.4-5.0); Calcium 10.4 mg/dL (8.5-10.1); Potassium 3.5 mmol/L (3.5-5.1)
[2020-05-12 07:08] LABS: BUN/Creatinine Ratio 8.6
[2020-05-12 07:10] LABS: Bilirubin, Total 0.6 mg/dL (0.2-1.0); Total Protein 5.3 g/dL (6.4-8.2)
[2020-05-12 08:04] LABS: Basophils # (auto) 0 10 ^3/uL (0-0.2); Eosinophils # (auto) 0.2 10 ^3/uL (0-0.8); Monocytes # (auto) 0.4 10 ^3/uL (0-1.3); White Blood Cell 3.9 10^3/uL (4.4-10.8)
[2020-05-12 08:06] LABS: Basophils % (auto) 1.1 % (0.0-2.0); Eosinophils % (auto) 5.2 % (0.0-7.0); Hematocrit 31.7 % (41.0-53.0); Lymphocytes % (auto) 25.9 % (10.0-50.0); Mean Corpuscular Hemoglobin 26.2 pg (28.0-32.0); Mean Corpuscular Hgb Conc. 31.6 g/dL (32.0-36.0); Mean Corpuscular Volume 82.9 fL (80.0-100.0); Monocytes % (auto) 10.4 % (0.0-12.0); Neutrophils # (auto) 2.3 10 ^3/uL (1.6-8.6); Neutrophils % (auto) 57.4 % (37.0-80.0); Nucleated Red Blood Cells % 0.2 %; Platelet Count (auto) 88 10^3/uL (140-450); Red Blood Cells 3.83 10^6/uL (4.5-5.90); Red Cell Distribution Width 18.5 % (11.8-14.3)
[2020-05-12] MEDS ORDERED: hydrALAZINE HCL 20 MG/ML VL IV PRN (08:30)
[2020-05-12] MEDS: CARVEDILOL 12.5 MG TAB PO SCH ×2 (10:00→22:00)
[2020-05-12] MEDS: TACROLIMUS 1 MG CAP PO SCH ×2 (10:00→22:00)
[2020-05-12] MEDS: FOLIC ACID PO SCH (10:00)
--- NOTE | 2020-05-12 10:00 | NUR ---
NIKKI AT BEDSIDE. MD AWARE OF LEFT UPPER ARM SWELLING. NEW ORDERS RECEIVED.
[2020-05-12] MEDS: POTASSIUM EFFERVESENT TAB 25 MEQ GT SCH (10:23)
[2020-05-12] MEDS: PANTOPRAZOLE 40 MG/10 ML VIAL INJ IV SCH (10:23)
[2020-05-12] MEDS: ASPirin 81 mg TAB GT SCH (10:23)
[2020-05-12] MEDS: FUROSEMIDE 40 MG/4 ML VIAL IV SCH (10:24)
[2020-05-12] MEDS: ENOXAPARIN SOD 30 MG/0.3 ML SYRINGE SC SCH (10:25)
[2020-05-12] MEDS: levETIRAcetam 500 MG TAB PO SCH ×2 (10:26→21:51)
[2020-05-12] MEDS: MYCOPHENOLATE 1000mg/5ml ORALsusp 200mg/ml PO SCH ×2 (10:31→21:51)
--- NOTE | 2020-05-12 10:34 | NUR ---
Poison control update Poison control Xochitl updated on patients status. Vs/ labs reviewed. No further suggestions at this time.
--- NOTE | 2020-05-12 10:36 | NUR ---
HEALTHCARE CONSULTANT AT BEDSIDE.
--- NOTE | 2020-05-12 10:46 | NUR ---
RT AND TECH AT BEDSIDE. PT IS BEING TRANSPORTED TO CT AT THIS TIME
--- NOTE | 2020-05-12 11:00 | NUR ---
Family updated on pt status Family of CARLYNCYNTHIA Muñiz updated on patient's status and condition. All questions and concerns addressed. , Anahi verbalized understanding. notified of left arm swelling, stating left arm is not to be used as patient had a fistula to arm and salon/spa manager recommends no iv, bp or draws. Left upper arm to be removed, restricted arm band in place, sign set above bed on no iv, bp or blood draws.
--- NOTE | 2020-05-12 11:57 | NUR ---
ASYA AT BEDSIDE
--- NOTE | 2020-05-12 13:00 | NUR ---
REMOVED LEFT UPPER ARM MIDLINE.
[2020-05-12] MEDS: AZITHROMYCIN 500MG/ 250ML 250 ML IV SCH (13:15)
[2020-05-12] MEDS ORDERED: MAGNESIUM SULFATE 1GM/100ML 100 ML IV ONE (13:15)
--- NOTE | 2020-05-12 14:15 | NUR ---
ATTEMPTED TO CALL THE PATIENTS . PATIENTS DID NOT ANSWER.
--- NOTE | 2020-05-12 14:45 | NUR ---
Respiratory note: PT PLACED ON CPAP TRIAL. PS 8, CPAP 5, FI02 30%.
--- NOTE | 2020-05-12 14:55 | NUR ---
IMAGING ANALYST/ CPAP TRIAL SPOKE TO DR HARRISON OVER THE PHONE. NEW ORDER RECEIVED TO CPAP FOR EXERCISE. IF PATIENT DOES NOT TOLERATE OKAY TO PLACE BACK ON PREVIOUS SETTINGS. PATIENT CURRENTLY ON CPAP TRIAL. PT AWAKE ABLE TO FOLLOW COMMANDS TOLERATING TRIAL SO FAR.
--- NOTE | 2020-05-12 15:15 | NUR ---
CPAP TRIAL PATIENT TAKEN OF CPAP AND PLACED ON PREVIOUS VENT SETTINGS. CPAP TRIAL LASTED HALF AN HOUR. 1445 TO 1513
--- NOTE | 2020-05-12 15:15 | NUR ---
Respiratory note: PT PLACED BACK ON PREVIOUS SETTINGS OFF OF CPAP TRIAL DUE TO APNEA.
--- NOTE | 2020-05-12 15:57 | NUR ---
PATIENT ON GLUCERNA RUNNING AT 10 ML/HR. TOLERATING FEEDING WELL. RESIDUAL LESS THEN 5ML. WILL CONTINUE TO TITRATE FEEDING RATE TO ACHIEVE GOAL FEEDING RATE OF 30ML/HR
--- NOTE | 2020-05-12 16:12 | NUR ---
05/12/20 1600 Spoke with Gerber brown at [place] and stated patient has authorization for in patient stay for 05/13/20 @1000 am
--- NOTE | 2020-05-12 17:31 | NUR ---
PATIENT HAD LARGE LOOSE YELLOW-GREEN BOWEL MOVEMENT. CLEANED PATIENT. PERFORMED PARTIAL LINEN CHANGE AND PUT IN FLEXISEAL. Addendum: 05/12/20 at 1828 by Rona Tayolr RN PATIENT TOLERATED WELL.
[2020-05-12] MEDS: FLUCONAZOLE 200MG/100ML 100 ML IV SCH (17:45)
[2020-05-12] MEDS: MIRTAZAPINE 30 MG TAB PO SCH (18:00)
--- NOTE | 2020-05-12 19:15 | NUR ---
Opening notes Assumed care, laying on bed with his eyes closed, off sedation, on vent, MOOKIE midline patent and intact, conway catheter draining to a clear urine, NGT infusing glucerna feeding @ 20ml/hr, SCD's on bilateral legs noted. Bed in lowest position with side rails up, bed alarm on. Will continue care.
[2020-05-12] MEDS: ATORVASTATIN 20 MG TAB PO SCH (21:52)
[2020-05-12] MEDS ORDERED: MAGNESIUM OXIDE 400 MG TAB PO SCH (22:00)
[2020-05-13] VITALS (68 sets, daily range): BP systolic 116–163; BP diastolic 49–111
--- NOTE | 2020-05-13 | NUR ---
Tube feeding Increased glucerna feeding to 30ml/hr, no residuals noted.
[2020-05-13] MEDS: IPRATROPIUM BROM 0.5 MG/2.5ML INH SOL NEB SCH ×4 (00:08→18:47)
[2020-05-13] MEDS: ALBUTEROL SULF 2.5 MG/0.5ML(0.5%) NEB SOLN NEB SCH ×4 (00:08→18:47)
--- NOTE | 2020-05-13 02:30 | NUR ---
TF off for CPAP trial in AM
--- NOTE | 2020-05-13 03:00 | NUR ---
Patient bathe/linen change Patient given complete bath. Skin integrity assessed for any changes. Linens and gown changed, cleansed sacral area and changed optifoam dressing. Patient repositioned for comfort.
[2020-05-13 04:22] LABS: Basophils # (auto) 0 10 ^3/uL (0-0.2); Eosinophils # (auto) 0.2 10 ^3/uL (0-0.8); Monocytes # (auto) 0.5 10 ^3/uL (0-1.3); Neutrophils # (auto) 2.1 10 ^3/uL (1.6-8.6)
[2020-05-13 04:28] LABS: Basophils % (auto) 0.7 % (0.0-2.0); Eosinophils % (auto) 5.4 % (0.0-7.0); Hematocrit 30.5 % (41.0-53.0); Hemoglobin 9.8 g/dL (13.5-17.5); Lymphocytes % (auto) 27.5 % (10.0-50.0); Mean Corpuscular Hemoglobin 26.6 pg (28.0-32.0); Mean Corpuscular Hgb Conc. 32.1 g/dL (32.0-36.0); Mean Corpuscular Volume 82.9 fL (80.0-100.0); Monocytes % (auto) 12.2 % (0.0-12.0); Neutrophils % (auto) 54.2 % (37.0-80.0); Platelet Count (auto) 78 10^3/uL (140-450); Red Blood Cells 3.68 10^6/uL (4.5-5.90); Red Cell Distribution Width 18.3 % (11.8-14.3); White Blood Cell 3.8 10^3/uL (4.4-10.8)
[2020-05-13 04:39] LABS: Albumin 2.5 g/dL (3.4-5.0); Potassium 3.3 mmol/L (3.5-5.1)
[2020-05-13 04:44] LABS: BUN/Creatinine Ratio 8.4; Bilirubin, Total 0.6 mg/dL (0.2-1.0); Total Protein 5.3 g/dL (6.4-8.2)
[2020-05-13] MEDS: PIPERACILLIN-TAZOB 2.25GM 50 ML IV SCH ×2 (05:19→10:59)
[2020-05-13] MEDS: ACCU-CHEK COMFORT CURVE STRIP VI SCH ×5 (06:00→23:35)
[2020-05-13] MEDS: InsuLIN REG 1unit/0.01ml Soln (100units/ml) SC SCH ×4 (06:00→18:00)
--- NOTE | 2020-05-13 06:03 | NUR ---
Respiratory note: PT RECEIVED ON VENT #V3, PLUGGED INTO A RED OUTLET AND PROPER O2 SOURCE. AMBU BAG/MASK AT BEDSIDE. ALARMS ARE PROPERLY SET, FUNCTIONING,AND AUDIBLE. ETT SECURED WITH A HOLISTER. A SCAB IS NOTED ON THE RIGHT CORNER OF LIP, RN AWARE. SKIN IS COOL AND DRY TO THE TOUCH WITH EDEMA NOTED BILATERALLY ON THE LOWER EXTREMITIES. BILATERAL BS REVEAL CRACKLES. SX WITH SCANT RETURN. MED NEB TX GIVEN INLINE,TOLERATED WELL. POC:MAINTAIN ADEQUATE OXYGENATION,VENTILATION,AND PULMONARY HYGIENE.
--- NOTE | 2020-05-13 09:15 | NUR ---
Respiratory note: PLACED PT ON CPAP. PT DID NOT TOLERATE. PT WENT APNEIC. PT PLACED BACK ON DR ORDERED VENT SETTINGS. RN MADE AWARE OF FAILED CPAP. BS ARE CLEAR, SUCTIONED WITH SCANT RETURN.ALARMS VERIFIED AND AUDIBLE. NO FURTHER VENT CHANGES ORDERED AT THIS TIME. WILL CONTINUE TO MONITOR ORDERED.
[2020-05-13] MEDS: CARVEDILOL 12.5 MG TAB PO SCH ×2 (10:00→22:00)
[2020-05-13] MEDS: ENOXAPARIN SOD 30 MG/0.3 ML SYRINGE SC SCH (10:00)
[2020-05-13] MEDS: ASPirin 81 mg TAB GT SCH (10:00)
[2020-05-13] MEDS: TACROLIMUS 1 MG CAP PO SCH ×2 (10:00→22:00)
[2020-05-13] MEDS: FOLIC ACID PO SCH (10:00)
[2020-05-13] MEDS: POTASSIUM EFFERVESENT TAB 25 MEQ GT SCH (10:57)
[2020-05-13] MEDS: AZITHROMYCIN 500MG/ 250ML 250 ML IV SCH (10:57)
[2020-05-13] MEDS: levETIRAcetam 500 MG TAB PO SCH ×2 (10:57→22:00)
[2020-05-13] MEDS: PANTOPRAZOLE 40 MG/10 ML VIAL INJ IV SCH (10:57)
[2020-05-13] MEDS: FUROSEMIDE 40 MG/4 ML VIAL IV SCH (10:58)
--- NOTE | 2020-05-13 11:50 | NUR ---
DR PÉREZ AT BEDSIDE DISCUSSED PT STATUS AND POC. NEW ORDERS RECEIVED
--- NOTE | 2020-05-13 12:04 | NUR ---
Nutrition Followup Notes Wt: 77.0 kg Pt`s waking up with no family by bedside. Pt is currently NPO with TF suspended d/t scheduled CPAP trial. Will continue to monitor PO status, skin status, pertinent labs and weight trends. Will f/u in 2-3 days. Est Energy needs: 4381-2281 kcals (30-35 kcal/kgBW), Est Protein needs: 51-57 gms/day (0.8-0.9 gm/kgBW) d/t pt with ESRD, no HD. Will continue to monitor and reassess prn. LABS: ALB 2.5 L GLU 126 H GI: Pt had 1 BM on 05/09 per RN doc BS: 13 mod risk. Refer to wound assessment report for full details. PES: 1) Increased nutrient needs aeb pt is sedated, intubated, NPO r/t pt with no PO intake 2) Altered nutrition related lab values aeb hyperglycemia, elev RFTs, low GFR, severe hypoalbuminemia r/t current/chronic medical condition Comments: will continue to F/u skin status NPO status. F/u high 2-3 days Rec: 1) Continue to carefully monitor pt NPO status. 2) If pt remains NPO over the next 48 hours, consider Glucerna 1.2 @ 70 ml/hr as tolerated and per MD approval. 3) Gradually advance pt to oral CCHO 60g/Renal Specific 50g Protein,2gmNa,K2,lowphos diet when medically feasible and as tolerated 4) Continue current plan of care
[2020-05-13] MEDS: MYCOPHENOLATE 1000mg/5ml ORALsusp 200mg/ml PO SCH ×2 (12:06→22:00)
[2020-05-13] MEDS: POTASSIUM CHL 20MEQ/100ML 100 ML IV SCH ×2 (15:38→18:38)
[2020-05-13] MEDS: FLUCONAZOLE 200MG/100ML 100 ML IV SCH (15:41)
--- NOTE | 2020-05-13 16:50 | NUR ---
TUBE FEEDING RESTARTED PT FAILED CPAP TRIAL. TUBE FEEDING RESTARTED AT THIS TIME. WILL CONTINUE TO MONITOR.
[2020-05-13] MEDS: MIDAZOLAM DRIP 50 mg/50mL 50 ML IV SCH (17:59)
[2020-05-13] MEDS: PIPERACILLIN-TAZOB 3.375GM 100 ML IV SCH ×2 (18:38→23:34)
--- NOTE | 2020-05-13 20:10 | NUR ---
NGT accidentally pulled out by pt, will reinsert later
--- NOTE | 2020-05-13 20:50 | NUR ---
Nasogastric tube insertion Patient educated on need for NG tube, pt nonverbal at this time d/t vent. NGT inserted per MD order. Placement verified by aspiration of stomach contents, auscultation. Restarted TF w/ glucerna @ 20 ml/hr.
--- NOTE | 2020-05-13 21:30 | NUR ---
Family update Pt called, updated on pt's status, handset phone transferred to pt
[2020-05-13] MEDS: MIRTAZAPINE 30 MG TAB PO SCH (21:39)
[2020-05-13] MEDS: ATORVASTATIN 20 MG TAB PO SCH (22:00)
--- NOTE | 2020-05-13 23:41 | NUR ---
Accucheck 83, still NPO, TF increased to desired goal @ 30 ml/hr
[2020-05-14] VITALS (60 sets, daily range): BP systolic 94–159; BP diastolic 69–132
--- NOTE | 2020-05-14 03:00 | NUR ---
Patient bathe/linen change Patient given complete bath. Skin integrity assessed for any changes. Full linens and gown changed. Cleansed sacrum and changed optifoam dressing. Patient repositioned for comfort.
--- NOTE | 2020-05-14 03:10 | NUR ---
Tube feeding off, for CPAP trial
[2020-05-14 04:25] LABS: Basophils # (auto) 0 10 ^3/uL (0-0.2); Eosinophils # (auto) 0.2 10 ^3/uL (0-0.8); Lymphocytes # (auto) 1.3 10 ^3/uL (0.4-5.4); Monocytes # (auto) 0.7 10 ^3/uL (0-1.3); Neutrophils # (auto) 1.8 10 ^3/uL (1.6-8.6); Platelet Count (auto) 85 10^3/uL (140-450)
[2020-05-14 04:27] LABS: Basophils % (auto) 0.9 % (0.0-2.0); Eosinophils % (auto) 5.8 % (0.0-7.0); Hematocrit 30.6 % (41.0-53.0); Hemoglobin 9.8 g/dL (13.5-17.5); Lymphocytes % (auto) 31.5 % (10.0-50.0); Mean Corpuscular Hemoglobin 26.6 pg (28.0-32.0); Mean Corpuscular Hgb Conc. 32.2 g/dL (32.0-36.0); Mean Corpuscular Volume 82.7 fL (80.0-100.0); Monocytes % (auto) 16.3 % (0.0-12.0); Neutrophils % (auto) 45.5 % (37.0-80.0); Red Cell Distribution Width 18.4 % (11.8-14.3)
[2020-05-14 04:43] LABS: BUN/Creatinine Ratio 8.2; Calcium 10.3 mg/dL (8.5-10.1)
[2020-05-14] MEDS: ACCU-CHEK COMFORT CURVE STRIP VI SCH ×3 (05:50→18:25)
[2020-05-14] MEDS: PIPERACILLIN-TAZOB 3.375GM 100 ML IV SCH ×3 (05:50→18:25)
[2020-05-14] MEDS: InsuLIN REG 1unit/0.01ml Soln (100units/ml) SC SCH ×4 (06:00→19:09)
[2020-05-14] MEDS: IPRATROPIUM BROM 0.5 MG/2.5ML INH SOL NEB SCH ×5 (06:05→23:56)
[2020-05-14] MEDS: ALBUTEROL SULF 2.5 MG/0.5ML(0.5%) NEB SOLN NEB SCH ×5 (06:05→23:56)
[2020-05-14] MEDS: MIDAZOLAM DRIP 50 mg/50mL 50 ML IV SCH (06:42)
--- NOTE | 2020-05-14 08:06 | NUR ---
INITIATED CPAP TRIAL Pt is awake and alert, able to follow simple commands. Initiated CPAP trial as ordered, pt tolerating well. HR 73, RR 11, SPO2 100%. ABG and weaning parameters to follow in one hour. No s/s of distress noted. RN Miguel Angel at bedside, aware of changes. Will continue to monitor.
--- NOTE | 2020-05-14 08:40 | NUR ---
Patient continues to tolerate CPAP trials. Assisting patient with turning and personal needs at this time.
--- NOTE | 2020-05-14 08:41 | NUR ---
TERMINATED CPAP TRIAL Pt with episodes of apnea. Terminated cpap trial and reverted back to AC mode with previously ordered settings. Notified AMIRA.
--- NOTE | 2020-05-14 09:14 | NUR ---
Patient tired out with CPAP trials after 40 minutes. Will try again in afternoon. Patient turned and he returned to sleep immediately.
[2020-05-14] MEDS: TACROLIMUS 1 MG CAP PO SCH ×2 (10:00→22:33)
[2020-05-14] MEDS: POTASSIUM EFFERVESENT TAB 25 MEQ GT SCH (10:28)
[2020-05-14] MEDS: ENOXAPARIN SOD 40 MG/0.4 ML SYRINGE SC SCH (10:29)
[2020-05-14] MEDS: PANTOPRAZOLE 40 MG/10 ML VIAL INJ IV SCH (10:43)
[2020-05-14] MEDS: FUROSEMIDE 40 MG/4 ML VIAL IV SCH (10:43)
[2020-05-14] MEDS: levETIRAcetam 500 MG TAB PO SCH ×2 (10:47→22:35)
[2020-05-14] MEDS: FOLIC ACID 1 MG TAB PO SCH (10:49)
[2020-05-14] MEDS: CARVEDILOL 12.5 MG TAB PO SCH ×2 (10:49→22:34)
[2020-05-14] MEDS: ASPirin 81 mg TAB GT SCH (10:49)
[2020-05-14] MEDS: AZITHROMYCIN 500MG/ 250ML 250 ML IV SCH (10:50)
--- NOTE | 2020-05-14 11:00 | NUR ---
ASSUMED CARE; Report received, assumed care of patient.
--- NOTE | 2020-05-14 11:35 | NUR ---
AT BEDSIDE: Dr. Ventura at bedside, aware of previous attempt to CPAP patient. Plan to attempt second CPAP trail this afternoon, RT aware. No further orders at this time.
[2020-05-14] MEDS: MYCOPHENOLATE 1000mg/5ml ORALsusp 200mg/ml PO SCH ×2 (12:30→22:34)
--- NOTE | 2020-05-14 14:10 | NUR ---
INITIATED CPAP TRIAL Attempting another CPAP trial per MD's request. Pt tolerating well at this time. HR 75, RR 16, SPO2 100%. No s/s of distress. Notified RN of changes. Will continue to monitor.
--- NOTE | 2020-05-14 15:35 | NUR ---
TERMINATED CPAP TRIAL Pt tolerated CPAP trial well with only one apneic episode at 1435. Stimulated pt and he continued trial with spontaneous breaths and no more apneic episodes throughout the rest of the hour. Obtained weaning parameters: NIF -5, RSBI 29, pt not cooperating for VC. ABG drawn and analyzed. Called Dr. Ventura and reported ABG and weaning parameters. MD said she will discuss with pt's on POC, plan for CPAP trial again tomorrow morning. Reverted pt back to AC mode with previously ordered settings. CPAP trial completed without incident. Pt resting in bed, no s/s of distress. Updated RN on changes and POC. Will endorse orders to oncoming RT.
[2020-05-14] MEDS: FLUCONAZOLE 200MG/100ML 100 ML IV SCH (16:00)
[2020-05-14] MEDS: MIRTAZAPINE 30 MG TAB PO SCH (18:25)
[2020-05-14] MEDS: ATORVASTATIN 20 MG TAB PO SCH (22:34)
[2020-05-15] VITALS (35 sets, daily range): BP systolic 85–161; BP diastolic 34–121
[2020-05-15] MEDS: PIPERACILLIN-TAZOB 3.375GM 100 ML IV SCH ×5 (00:21→23:38)
[2020-05-15 04:47] LABS: Calcium 10.2 mg/dL (8.5-10.1); Potassium 3.9 mmol/L (3.5-5.1)
[2020-05-15 04:53] LABS: Hemoglobin 9.9 g/dL (13.5-17.5)
[2020-05-15 04:55] LABS: Hematocrit 30.2 % (41.0-53.0); Mean Corpuscular Hemoglobin 26.8 pg (28.0-32.0); Mean Corpuscular Hgb Conc. 32.9 g/dL (32.0-36.0); Mean Corpuscular Volume 81.6 fL (80.0-100.0); Platelet Count (auto) 93 10^3/uL (140-450); White Blood Cell 4.2 10^3/uL (4.4-10.8)
[2020-05-15 05:05] LABS: Band Neutrophils % (manual) 0; Basophils % (manual) 0 (0.0-2.0); Blast Cells 0; Metamyelocytes % 0; Myelocytes % 0; Promyelocytes % 0; Reactive Lymphocytes 0
--- NOTE | 2020-05-15 05:11 | NUR ---
PT RECEIVED CHG BATH. CONTINUES TO LEAK AROUND RECTAL TUBE. CLEANED 2X SO FAR THIS SHIFT. WILL CONTINUE TO MONITOR.
[2020-05-15 05:40] LABS: Eosinophils % (manual) 4 (0-7); Lymphocytes % (manual) 34 (10.0-50.0); Monocytes % (manual) 10 (0-12)
[2020-05-15] MEDS: ACCU-CHEK COMFORT CURVE STRIP VI SCH ×5 (06:00→23:40)
[2020-05-15] MEDS: ALBUTEROL SULF 2.5 MG/0.5ML(0.5%) NEB SOLN NEB SCH ×3 (06:25→18:32)
[2020-05-15] MEDS: IPRATROPIUM BROM 0.5 MG/2.5ML INH SOL NEB SCH ×3 (06:25→18:32)
[2020-05-15] MEDS: MIDAZOLAM DRIP 50 mg/50mL 50 ML IV SCH (06:42)
[2020-05-15] MEDS: InsuLIN REG 1unit/0.01ml Soln (100units/ml) SC SCH ×5 (06:52→23:41)
--- NOTE | 2020-05-15 08:30 | NUR ---
ELIMINATION; Rectal tube leaking, patient soiled skin care and partial linen change provided.
[2020-05-15] MEDS: TACROLIMUS 1 MG CAP PO SCH ×2 (10:00→22:00)
[2020-05-15] MEDS: CARVEDILOL 12.5 MG TAB PO SCH ×2 (10:00→22:00)
--- NOTE | 2020-05-15 10:10 | NUR ---
WOUND CARE NURSE AT BEDSIDE.
--- NOTE | 2020-05-15 10:12 | NUR ---
WOUND CARE NOTE: Wound care in to see patient for skin integrity monitoring. Patient continue resting in ICU bed in Rm. 103. Patient is intubated, and mechanically ventilated. Patient open eyes on verbal and tactile stimuli. He appears to be in no pain using Browning Zhao Faces Pain Scale.HIs Rod score is 14. Skin assessment done with the assistance of student nurse drywall application supervisor. Patient is on tube feeding and developed episodes of loose stools. He developed tiny skin tears (0.5x0.5cm) to sacral/coccyx area and posterior scrotal area (0.3x0.3cm) from moisture associated skin damage. Patient now has rectal tube in placed with liquid stools in tubing and in collection bag. Des care given, applied Z Guard cream and covered coccyx wound with Opti foam gentle dressing. Photograph of wounds are taken for reference. Repositioned patient for comfort facing his Lt side, redistributed pressure points with pillows. Patient tolerated well. RECOMMENDATION: Nursing to continue with BID/PRN cleaning and application of Z Guard cream to sacral, buttocks, perineum per MD order, frequent des care/check, continue with skin/wound plan of care, continue monitoring by wound care while patient is mechanically ventilated and Rod score is <18. Addendum: 05/15/20 at 1120 by Ene Louie RN Amended: Links added.
--- NOTE | 2020-05-15 10:30 | NUR ---
ELIMINATION: Rectal tube leaking, patient soiled. Complete linen change and skin care provided.
[2020-05-15] MEDS: PANTOPRAZOLE 40 MG/10 ML VIAL INJ IV SCH (10:31)
[2020-05-15] MEDS: FUROSEMIDE 40 MG/4 ML VIAL IV SCH (10:32)
[2020-05-15] MEDS: AZITHROMYCIN 500MG/ 250ML 250 ML IV SCH (10:33)
[2020-05-15] MEDS: POTASSIUM EFFERVESENT TAB 25 MEQ GT SCH (10:34)
[2020-05-15] MEDS: ENOXAPARIN SOD 40 MG/0.4 ML SYRINGE SC SCH (10:34)
[2020-05-15] MEDS: ASPirin 81 mg TAB GT SCH (10:34)
[2020-05-15] MEDS: levETIRAcetam 500 MG TAB PO SCH ×2 (10:35→22:00)
[2020-05-15] MEDS: MYCOPHENOLATE 1000mg/5ml ORALsusp 200mg/ml PO SCH ×2 (10:35→22:00)
[2020-05-15] MEDS: FOLIC ACID 1 MG TAB PO SCH (10:35)
--- NOTE | 2020-05-15 11:25 | NUR ---
Respiratory note: CPAP TRIAL INITIATED RN AND AT BEDSIDE. ABG TO FOLLOW IN 45MIN
--- NOTE | 2020-05-15 11:27 | NUR ---
Nutrition Followup Notes Wt: 47.1 kg Pt`s off sedation, currently NPO with TF suspended d/t scheduled CPAP trial. Will continue to monitor PO status, skin status, pertinent labs and weight trends. Will f/u in 2-3 days. Est Energy needs: 2416-3377 kcals (30-35 kcal/kgBW), Est Protein needs: 51-57 gms/day (0.8-0.9 gm/kgBW) d/t pt with ESRD, no HD. Will continue to monitor and reassess prn. LABS: ALB 2.5 L GLU 138 H GI: Pt had 2 BM on 05/13 per RN doc BS: 16 mod risk. Refer to wound assessment report for full details. PES: 1) Increased nutrient needs aeb pt is sedated, intubated, NPO r/t pt with no PO intake 2) Altered nutrition related lab values aeb hyperglycemia, elev RFTs, low GFR, severe hypoalbuminemia r/t current/chronic medical condition Comments: will continue to F/u skin status NPO status. F/u high 2-3 days Rec: 1) Continue to carefully monitor pt NPO status. 2) If pt remains NPO over the next 48 hours, consider Glucerna 1.2 @ 70 ml/hr as tolerated and per MD approval. 3) Gradually advance pt to oral CCHO 60g/Renal Specific 50g Protein,2gmNa,K2,lowphos diet when medically feasible and as tolerated 4) Continue current plan of care
--- NOTE | 2020-05-15 11:30 | NUR ---
CPAP TRIAL RT AT BEDSIDE CPAP TRIAL INITIATED
--- NOTE | 2020-05-15 12:09 | NUR ---
DR JORDAN AT BEDSIDE.
--- NOTE | 2020-05-15 12:20 | NUR ---
POISON CONTROL: Received call from poison control, set of vital signs given no further recommendations.
--- NOTE | 2020-05-15 13:30 | NUR ---
RETURNED PAGE: Dr. Ventura returned page regarding CPAP ABG results, spoke with Sherri ACEVEDO Patient to be placed back on previous settings.
--- NOTE | 2020-05-15 14:17 | NUR ---
Respiratory note: PLACED PATIENT BACK ON PREVIOUS SETTINGS. CPAP TRIAL AGAIN IN THE AM. PATIENT IS HAVING APNEIC MOMENTS.
--- NOTE | 2020-05-15 14:30 | NUR ---
ELIMINATION: Rectal tube leaking, skin care and partial linen change provided.
--- NOTE | 2020-05-15 15:23 | NUR ---
05/15/20 1450 Spoke with Laila analyst programmer at [facility] and stated patient has authorization for in patient stay for 05/13/20 @1000 am #[id number], case is still being reviewed and received clinicals for today, requesting for authorization for 05/16/20
[2020-05-15] MEDS: FLUCONAZOLE 200MG/100ML 100 ML IV SCH (16:28)
[2020-05-15] MEDS: MORPHINE SULF INJ 2 MG/ML SYRINGE 1ML IV PRN (16:37)
--- NOTE | 2020-05-15 16:45 | NUR ---
ELIMINATION: Rectal tube leaking, patient soiled. Rectal tube irrigated, continues to leak. Tube removed to assess for patency, reinserted balloon inflated with 45 ml of water. Partial linen change and skin care provided.
[2020-05-15] MEDS: MIRTAZAPINE 30 MG TAB PO SCH (18:00)
[2020-05-15] MEDS ORDERED: VANCOMYCIN 750mg/250ml 250 ML IV SCH (20:00)
[2020-05-15] MEDS: ATORVASTATIN 20 MG TAB PO SCH (22:00)
[2020-05-16] VITALS (38 sets, daily range): BP systolic 58–140; BP diastolic 38–83
[2020-05-16] MEDS: ALBUTEROL SULF 2.5 MG/0.5ML(0.5%) NEB SOLN NEB SCH ×4 (00:17→18:31)
[2020-05-16] MEDS: IPRATROPIUM BROM 0.5 MG/2.5ML INH SOL NEB SCH ×4 (00:17→18:31)
[2020-05-16 03:53] LABS: Hematocrit 28.5 % (41.0-53.0); Hemoglobin 9.2 g/dL (13.5-17.5); Mean Corpuscular Hgb Conc. 32.3 g/dL (32.0-36.0)
[2020-05-16 03:56] LABS: Mean Corpuscular Hemoglobin 26.5 pg (28.0-32.0); Mean Corpuscular Volume 81.9 fL (80.0-100.0); Platelet Count (auto) 88 10^3/uL (140-450); Red Blood Cells 3.48 10^6/uL (4.5-5.90); Red Cell Distribution Width 18.6 % (11.8-14.3); White Blood Cell 3.7 10^3/uL (4.4-10.8)
[2020-05-16 04:09] LABS: BUN/Creatinine Ratio 7.4; Calcium 9.7 mg/dL (8.5-10.1); Potassium 3.5 mmol/L (3.5-5.1)
[2020-05-16 04:34] LABS: Band Neutrophils % (manual) 0; Basophils % (manual) 0 (0.0-2.0); Blast Cells 0; Metamyelocytes % 0; Myelocytes % 0; Promyelocytes % 0; Reactive Lymphocytes 0
[2020-05-16 05:50] LABS: Eosinophils % (manual) 3 (0-7); Lymphocytes % (manual) 46 (10.0-50.0); Monocytes % (manual) 16 (0-12)
[2020-05-16] MEDS: InsuLIN REG 1unit/0.01ml Soln (100units/ml) SC SCH ×4 (06:00→23:26)
[2020-05-16] MEDS: PIPERACILLIN-TAZOB 3.375GM 100 ML IV SCH ×4 (06:11→23:26)
[2020-05-16] MEDS: ACCU-CHEK COMFORT CURVE STRIP VI SCH ×4 (06:13→23:26)
[2020-05-16] MEDS: MIDAZOLAM DRIP 50 mg/50mL 50 ML IV SCH (06:42)
--- NOTE | 2020-05-16 06:51 | NUR ---
Patient is npo since 2 AM for cpap trial today; morning bg 57,D50% given iv, tko changed to d5W. 30 min later BG 170, no insulin given, will repeat bg in one hr.
--- NOTE | 2020-05-16 08:30 | NUR ---
ELIMINATION: Rectal tube leaking, patient soiled. Partial linen change and skin care provided. Z-guard cream applied to sacrum, scrotum and inner thigh area, new optifoam applied to area. Patient is awake with periods of sleepiness, follow commands and helps to reposition.
--- NOTE | 2020-05-16 09:19 | NUR ---
AT BEDSIDE: Dr. Ventura at bedside, plan to attempt CPAP again today. Discussed plan with patient.
--- NOTE | 2020-05-16 09:30 | NUR ---
INITIATED CPAP TRIAL Pt is awake and able to follow simple commands. Initiated CPAP trial as ordered. Pt tolerating with no s/s of distress. Noted apneic episode after 3 minutes, stimulated pt and pt continued with spontaneous respirations. Notified Dr. Ventura. requested to continue CPAP trial for an hour, ABG and weaning parameters to follow. RN made aware of changes. Will continue to monitor.
[2020-05-16] MEDS: TACROLIMUS 1 MG CAP PO SCH (10:00)
[2020-05-16] MEDS: MYCOPHENOLATE 1000mg/5ml ORALsusp 200mg/ml PO SCH ×2 (10:00→21:48)
[2020-05-16] MEDS: ENOXAPARIN SOD 40 MG/0.4 ML SYRINGE SC SCH (10:51)
[2020-05-16] MEDS: PANTOPRAZOLE 40 MG/10 ML VIAL INJ IV SCH (10:51)
[2020-05-16] MEDS: FOLIC ACID 1 MG TAB PO SCH (10:52)
[2020-05-16] MEDS: levETIRAcetam 500 MG TAB PO SCH ×2 (10:52→21:59)
[2020-05-16] MEDS: ASPirin 81 mg TAB GT SCH (10:52)
[2020-05-16] MEDS: CARVEDILOL 3.125 MG TAB PO SCH ×2 (10:53→22:00)
--- NOTE | 2020-05-16 11:05 | NUR ---
TERMINATED CPAP TRIAL Called Dr. Ventura with ABG results and weaning parameters on CPAP: NIF -16, VC 1.1 L, RSBI 22, LEAK 175 ML. Notified MD of apneic episodes throughout CPAP trial. Per MD, place pt back on AC mode. Per MD, she will call a consult for possible tracheostomy. Pt back on AC mode tolerating well, no s/s of distress. Notified RN of changes.
[2020-05-16] MEDS ORDERED: TACROLIMUS 1 MG CAP GT SCH (11:30)
[2020-05-16] MEDS: TACROLIMUS 1 MG CAP GT SCH ×2 (11:38→22:01)
[2020-05-16] MEDS: MIRTAZAPINE 30 MG TAB PO SCH (15:26)
[2020-05-16] MEDS: FLUCONAZOLE 200MG/100ML 100 ML IV SCH (16:03)
[2020-05-16] MEDS: MORPHINE SULF INJ 2 MG/ML SYRINGE 1ML IV PRN (19:07)
--- NOTE | 2020-05-16 19:45 | NUR ---
Opening Shift Note Assumed care of patient. Patient is awake, with mittens on both hands. Responds with called his name. Remained intubated, failed CPAP trial earlier. No S/S of distress/SOB or pain. VS stable. Afebrile. Full assessment done -refer interventions. will continue to monitor for changes Q1hr and PRN.
[2020-05-16] MEDS: ATORVASTATIN 20 MG TAB PO SCH (21:59)
[2020-05-16] MEDS: MYCOPHENOLATE 1000mg/5ml ORALsusp 200mg/ml GT SCH (22:00)
--- NOTE | 2020-05-16 22:00 | NUR ---
ROUNDS NOTED FLEXI SEAL OUT WITH BALLOON STILL INFLATED. DID NOT RE-INSERT IT SINCE NO BM COMING OUT WILL CONTINUE TO MONITOR
[2020-05-17] VITALS (26 sets, daily range): BP systolic 88–140; BP diastolic 48–79
[2020-05-17] MEDS: ALBUTEROL SULF 2.5 MG/0.5ML(0.5%) NEB SOLN NEB SCH ×5 (00:20→23:30)
[2020-05-17] MEDS: IPRATROPIUM BROM 0.5 MG/2.5ML INH SOL NEB SCH ×5 (00:20→23:31)
--- NOTE | 2020-05-17 02:00 | NUR ---
TUBE FEEDING STOPPED FOR POSSIBLE CPAP LATER
--- NOTE | 2020-05-17 04:00 | NUR ---
HYGIENE CLEANED PATIENT WITH CHG WIPES. HAD BM SMALL AMOUNT LOOSE BROWNISH STOOL PERIANAL AREA CLEANED.APPLIED Z GUARD CREAM LINENS CHANGED. REPOSITIONED ORAL CARE DONE
[2020-05-17 04:08] LABS: Hemoglobin 9.4 g/dL (13.5-17.5); Mean Corpuscular Volume 81.9 fL (80.0-100.0); White Blood Cell 3.7 10^3/uL (4.4-10.8)
[2020-05-17 04:10] LABS: Hematocrit 28.9 % (41.0-53.0); Mean Corpuscular Hemoglobin 26.6 pg (28.0-32.0); Mean Corpuscular Hgb Conc. 32.5 g/dL (32.0-36.0); Platelet Count (auto) 97 10^3/uL (140-450); Red Blood Cells 3.52 10^6/uL (4.5-5.90); Red Cell Distribution Width 18.7 % (11.8-14.3)
[2020-05-17 04:20] LABS: Band Neutrophils % (manual) 0; Basophils % (manual) 0 (0.0-2.0); Blast Cells 0; Metamyelocytes % 0; Myelocytes % 0; Promyelocytes % 0; Reactive Lymphocytes 0
[2020-05-17 04:27] LABS: Calcium 10.1 mg/dL (8.5-10.1); Potassium 3.7 mmol/L (3.5-5.1)
[2020-05-17 04:29] LABS: BUN/Creatinine Ratio 7.8
[2020-05-17 05:11] LABS: Eosinophils % (manual) 1 (0-7); Lymphocytes % (manual) 55 (10.0-50.0); Monocytes % (manual) 12 (0-12)
[2020-05-17] MEDS: InsuLIN REG 1unit/0.01ml Soln (100units/ml) SC SCH ×3 (05:20→18:00)
[2020-05-17] MEDS: ACCU-CHEK COMFORT CURVE STRIP VI SCH ×3 (05:20→18:00)
[2020-05-17] MEDS: PIPERACILLIN-TAZOB 3.375GM 100 ML IV SCH ×3 (05:22→18:00)
--- NOTE | 2020-05-17 07:15 | NUR ---
REPORT REPORT GIVEN TO AMIRA GREER
--- NOTE | 2020-05-17 09:44 | NUR ---
assumed patient care at this time. report received from donn jones after request from charge nurse. pt awake stable opens eyes spontaneously vss. fall and safety precautions in place. will continue to monitor for possible cpap today as ordered by md.
[2020-05-17] MEDS: CARVEDILOL 3.125 MG TAB PO SCH ×2 (10:00→21:48)
[2020-05-17] MEDS: ASPirin 81 mg TAB GT SCH (10:59)
[2020-05-17] MEDS: levETIRAcetam 500 MG TAB PO SCH ×2 (11:00→21:48)
[2020-05-17] MEDS: ENOXAPARIN SOD 30 MG/0.3 ML SYRINGE SC SCH (11:01)
[2020-05-17] MEDS: FOLIC ACID 1 MG TAB PO SCH (11:01)
[2020-05-17] MEDS: PANTOPRAZOLE 40 MG/10 ML VIAL INJ IV SCH (11:03)
[2020-05-17] MEDS: MYCOPHENOLATE 1000mg/5ml ORALsusp 200mg/ml GT SCH (11:07)
[2020-05-17] MEDS: TACROLIMUS 1 MG CAP GT SCH (11:25)
--- NOTE | 2020-05-17 11:32 | NUR ---
rt at bedside patient extubated at 1132
--- NOTE | 2020-05-17 12:54 | NUR ---
Nutrition Followup Notes Wt: 48.4 kg Pt`s off sedation, currently NPO with TF suspended since 05/13 d/t scheduled CPAP trial per RN. Will continue to monitor PO status, skin status, pertinent labs and weight trends. Will f/u in 2-3 days. Est Energy needs: 8503-9674 kcals (30-35 kcal/kgBW), Est Protein needs: 51-57 gms/day (0.8-0.9 gm/kgBW) d/t pt with ESRD, no HD. Will continue to monitor and reassess prn. LABS: ALB 2.5 L GLU 118 H GI: Pt had 2 BM on 05/13 per RN doc BS: 14 mod risk. Refer to wound assessment report for full details. PES: 1) Increased nutrient needs aeb pt is sedated, intubated, NPO r/t pt with no PO intake 2) Altered nutrition related lab values aeb hyperglycemia, elev RFTs, low GFR, severe hypoalbuminemia r/t current/chronic medical condition Comments: will continue to F/u skin status NPO status. F/u high 2-3 days Rec: 1) Continue to carefully monitor pt NPO status. 2) If pt remains NPO over the next 48 hours, consider Glucerna 1.2 @ 70 ml/hr as tolerated and per MD approval. 3) Gradually advance pt to oral CCHO 60g/Renal Specific 50g Protein,2gmNa,K2,lowphos diet when medically feasible and as tolerated 4) Continue current plan of care
--- NOTE | 2020-05-17 14:10 | NUR ---
05/17/20 1410 Called [facility] and spoke with [employer] solution analyst, who stated they received the clinical packet but it was still being reviewed.
[2020-05-17] MEDS: FLUCONAZOLE 200MG/100ML 100 ML IV SCH (15:28)
--- NOTE | 2020-05-17 15:29 | NUR ---
SPOKE TO POISON CONTROL OVER THE PHONE. UPDATED POISON CONTROL ON PATIENT STATUS AND GAVE THEM CURRENT VITAL SIGNS. NO RECOMMENDATIONS GIVEN STATED THEY WOULD SIGN OFF.
--- NOTE | 2020-05-17 15:35 | NUR ---
SPEECH THERAPIST AT BEDSIDE. PATIENT PASSED SWALLOW EVAL. PUREE AND CLEAR LIQUID DIET RECOMMENDED BY SPEECH THERAPIST.
--- NOTE | 2020-05-17 15:46 | NUR ---
SWALLOW EVALUATED. PATIENT HAS NATURAL TEETH UPPER AND LOWER. PATIENT ABLE TO FOLLOW ONE STEP COMMANDS. PATIENT ABLE TO TOLERATE PUREE DIET TEXTURE WITH THIN LIQUIDS WITH NO OVERT SIGNS OR SYMPTOMS OF ASPIRATION. NURSING NOTIFIED.
[2020-05-17] MEDS: MIRTAZAPINE 30 MG TAB PO SCH (18:00)
--- NOTE | 2020-05-17 18:18 | NUR ---
RECIEVED REPORT FROM ICU
--- NOTE | 2020-05-17 18:40 | NUR ---
ICU patient trans to floor CYNTHIA ALCOCER transferred to [facility] room 278b via gurney on carriage rider. Patient alert and oriented x4, no distress noted, respirations even and unlabored, no oxygen requirements at this time. All patient medications transferred with patient to receiving floor, no personal belongings at bedside. Administration of 1800 Zosyn IV and continued are endorsed to receiving RN Laureen. Fall and safety precautions in place. Family previously notified of transfer.
--- NOTE | 2020-05-17 18:40 | NUR ---
Telemetry TRANSFER from ICU CYNTHIA ALCOCER admitted to Telemetry unit after SBAR received. Patient oriented to TIFFANIE MULLEN, primary RN, unit, room, bed, and unit policies regarding patient care and visiting hours. Patient now on continuous telemetry monitoring, tele box # [id number] and telemetry reading on arrival to unit is . Patient placed on bedside oxygen, weighed by bedscale and encouraged to call if they need something. All questions and concerns addressed, patient verbalized understanding. Note:
--- NOTE | 2020-05-17 19:55 | NUR ---
Opening Shift Note Assumed care of patient, awake and A&Ox1. Patient appears drousy. No S/S of distress/SOB or pain. Bed rails up x2. Call light in reach. Seizure precautions initiated. Suction at bedside. Apodaca hanging below bladder. Instructed on POC and to call for assist PRN, will continue to monitor for changes Q1hr and PRN. Signed: 05/18/20 at 0246 by SN NATALY <Co-Signature Required> Co-Signed: 05/18/20 at 0246 by JONATHAN ASHRAF RN
[2020-05-17] MEDS: ATORVASTATIN 20 MG TAB PO SCH (21:48)
[2020-05-17] MEDS: TACROLIMUS 1 MG CAP PO SCH (21:48)
[2020-05-18] MEDS: ACCU-CHEK COMFORT CURVE STRIP VI SCH ×4 (00:50→17:03)
[2020-05-18] MEDS: InsuLIN REG 1unit/0.01ml Soln (100units/ml) SC SCH ×4 (00:56→17:02)
[2020-05-18 05:00] VITALS: BP 106/60
[2020-05-18] MEDS: PIPERACILLIN-TAZOB 3.375GM 100 ML IV SCH ×4 (05:43→17:02)
[2020-05-18 05:51] LABS: BUN/Creatinine Ratio 7.1; Calcium 10.2 mg/dL (8.5-10.1); Potassium 3.8 mmol/L (3.5-5.1)
[2020-05-18] MEDS: IPRATROPIUM BROM 0.5 MG/2.5ML INH SOL NEB SCH ×3 (07:15→18:44)
[2020-05-18] MEDS: ALBUTEROL SULF 2.5 MG/0.5ML(0.5%) NEB SOLN NEB SCH ×3 (07:15→18:45)
--- NOTE | 2020-05-18 07:25 | NUR ---
Opening Shift Note Assumed care of patient, awake and A&Ox1. Patient appears drousy. No S/S of distress/SOB or pain. Bed rails up x2. Call light in reach. Seizure precautions initiated. Suction at bedside. Apodaca hanging below bladder. Instructed on POC and to call for assist PRN, will continue to monitor for changes Q1hr and PRN
[2020-05-18 08:49] VITALS: BP 104/56
[2020-05-18] MEDS: PANTOPRAZOLE 40 MG/10 ML VIAL INJ IV SCH (09:32)
[2020-05-18] MEDS: CARVEDILOL 3.125 MG TAB PO SCH ×2 (09:32→22:00)
[2020-05-18] MEDS: levETIRAcetam 500 MG TAB PO SCH ×2 (09:32→22:00)
[2020-05-18] MEDS: FOLIC ACID 1 MG TAB PO SCH (09:32)
[2020-05-18] MEDS: ASPirin 81 mg TAB PO SCH (09:32)
[2020-05-18] MEDS: MYCOPHENOLATE 1000mg/5ml ORALsusp 200mg/ml PO SCH ×2 (09:32→21:59)
[2020-05-18] MEDS: TACROLIMUS 1 MG CAP PO SCH ×2 (09:33→22:01)
[2020-05-18] MEDS: ENOXAPARIN SOD 30 MG/0.3 ML SYRINGE SC SCH (09:33)
--- NOTE | 2020-05-18 10:50 | NUR ---
05/18/20 1050 Faxed to [place] face sheet, CXR, progress notes, labs, med list, requesting authorization for 05/19/20, Will scan into [employer].
[2020-05-18] MEDS: FLUCONAZOLE 100 MG TAB PO SCH (12:29)
[2020-05-18 12:49] VITALS: BP 128/69
--- NOTE | 2020-05-18 15:25 | NUR ---
05/18/20 1525 Called [facility] and spoke with Jessica consumer insight analyst stated they received the clinical packet and gave authorization for in patient stay for 05/20/20 @ 1000 am #[id number].
[2020-05-18 16:45] VITALS: BP 123/73
[2020-05-18] MEDS: MIRTAZAPINE 30 MG TAB PO SCH (17:02)
--- NOTE | 2020-05-18 19:15 | NUR ---
Opening Shift Note Received report from Laureen COLLIER. Assumed care of patient, awake and alert, but slow to response. No S/S of distress/SOB or pain. Instructed on POC and to call for assist PRN. Fall precaution measures in place, will continue to monitor for changes Q1hr and PRN.
[2020-05-18] MEDS: ATORVASTATIN 20 MG TAB PO SCH (22:00)
[2020-05-18] MEDS ORDERED: HYDROcodone-ACET 7.5/325MG TAB PO ONE (22:30)
[2020-05-18 23:30] VITALS: BP 163/112
[2020-05-19] VITALS (8 sets, daily range): BP systolic 121–180; BP diastolic 70–119
[2020-05-19] MEDS: ACCU-CHEK COMFORT CURVE STRIP VI SCH ×4 (00:02→17:09)
[2020-05-19] MEDS: PIPERACILLIN-TAZOB 3.375GM 100 ML IV SCH ×4 (00:11→17:09)
[2020-05-19] MEDS: cloNIDine HCL 0.1 MG TAB PO PRN ×2 (00:12→11:57)
[2020-05-19] MEDS: ALBUTEROL SULF 2.5 MG/0.5ML(0.5%) NEB SOLN NEB SCH ×4 (00:53→18:53)
[2020-05-19] MEDS: IPRATROPIUM BROM 0.5 MG/2.5ML INH SOL NEB SCH ×4 (00:54→18:53)
[2020-05-19] MEDS: InsuLIN REG 1unit/0.01ml Soln (100units/ml) SC SCH ×4 (06:20→17:27)
[2020-05-19 07:38] LABS: Hemoglobin 10.8 g/dL (13.5-17.5); Mean Corpuscular Hgb Conc. 32.8 g/dL (32.0-36.0)
[2020-05-19 07:40] LABS: Mean Corpuscular Hemoglobin 26.5 pg (28.0-32.0); Mean Corpuscular Volume 80.8 fL (80.0-100.0); Platelet Count (auto) 124 10^3/uL (140-450); Red Blood Cells 4.08 10^6/uL (4.5-5.90); Red Cell Distribution Width 18.1 % (11.8-14.3); White Blood Cell 3.6 10^3/uL (4.4-10.8)
[2020-05-19 07:48] LABS: Calcium 10.5 mg/dL (8.5-10.1); Potassium 3.6 mmol/L (3.5-5.1)
[2020-05-19 07:49] LABS: Band Neutrophils % (manual) 0; Basophils % (manual) 0 (0.0-2.0); Blast Cells 0; Metamyelocytes % 0; Myelocytes % 0; Promyelocytes % 0; Reactive Lymphocytes 0
--- NOTE | 2020-05-19 07:49 | NUR ---
Opening Note] Assumed pt care from NOC RN. Pt is a/ox3-4 with no s/s of distress or SOB. Pt is currently laying in bed with no complaints at this time. Apodaca is present, free of kinks and is draining to gravity. Discussed POC with pt. Safety measures maintained with call light within reach, bed in lowest position and side rails up. Will continue to monitor for changes.
[2020-05-19 07:50] LABS: BUN/Creatinine Ratio 6.4
[2020-05-19 08:16] LABS: Eosinophils % (manual) 4 (0-7); Lymphocytes % (manual) 48 (10.0-50.0); Monocytes % (manual) 17 (0-12)
[2020-05-19] MEDS: FOLIC ACID 1 MG TAB PO SCH (09:04)
[2020-05-19] MEDS: FLUCONAZOLE 100 MG TAB PO SCH (09:04)
[2020-05-19] MEDS: ASPirin 81 mg TAB PO SCH (09:04)
[2020-05-19] MEDS: ENOXAPARIN SOD 30 MG/0.3 ML SYRINGE SC SCH (09:04)
[2020-05-19] MEDS: CARVEDILOL 3.125 MG TAB PO SCH ×2 (09:05→21:57)
[2020-05-19] MEDS: levETIRAcetam 500 MG TAB PO SCH ×2 (09:05→21:56)
[2020-05-19] MEDS: MYCOPHENOLATE 1000mg/5ml ORALsusp 200mg/ml PO SCH ×2 (09:05→21:56)
[2020-05-19] MEDS: TACROLIMUS 1 MG CAP PO SCH ×2 (09:06→22:00)
--- NOTE | 2020-05-19 10:51 | NUR ---
Dr Casey at bedside MD to see pt. Discussed POC with pt. Pending Physical Therapy assessment. No new orders at this time. Will continue to monitor.
--- NOTE | 2020-05-19 11:59 | NUR ---
Elevated BP Reported BP of 180/119 with a HR of 60. Pt is currently asymptomatic at this time. Provided available PRNs. Will continue to monitor and reassess BP. Addendum: 05/19/20 at 1245 by PIERRE MONTERO RN RN Reassessed BP, currently 156/79 with a HR of 57. Pt is asymptomatic at this time. Will continue to monitor.
--- NOTE | 2020-05-19 15:21 | NUR ---
Nutrition Followup Notes Wt: 48.1 kg Pt`s s/p extubated with MD at bedside when rounded this am. pt ST mccauley now advanced to pureed diet with inadequate PO of 10% x 3 per RN doc. per records Est Energy needs: 2021-4213 kcals (30-35 kcal/kgBW), Est Protein needs: 51-57 gms/day (0.8-0.9 gm/kgBW) d/t pt with ESRD, no HD. Will continue to monitor and reassess prn. LABS: CREAT 1.71 H GLU 156 H CA 10.5 H GI: Pt had 2 BM on 05/13 per RN doc BS: 19 low risk. Refer to wound assessment report for full details. PES: 1) Increased nutrient needs aeb pt is sedated, intubated, NPO r/t pt with no PO intake 2) Altered nutrition related lab values aeb hyperglycemia, elev RFTs, low GFR, severe hypoalbuminemia r/t current/chronic medical condition Comments: will continue to F/u skin status PO intake status. F/u high 2-3 days Rec: 1) Consider CHO 60g/Renal Specific 50g Protein,2gmNa,K2,low phos along with current diet. 2) consider Glucerna 1 carton bid as PO is low. 3) continue assistance with meals. 5) Continue current plan of care
[2020-05-19] MEDS: MIRTAZAPINE 30 MG TAB PO SCH (17:09)
--- NOTE | 2020-05-19 19:03 | NUR ---
Respiratory note: AT BEDSIDE FOR MED NEB TX, PT TOLERATING TX WELL VIA MASK. BS ARE DIMINISHED T/O. HR IN 60S, POX 95-97% ON RA. RT NAME AND PAGER ASSIGNMENT WRITTEN ON PTS ROOM BOARD. WILL CONTINUE TO MONITOR.
--- NOTE | 2020-05-19 19:15 | NUR ---
Opening Shift Note Received report from Mary COLLIER. Assumed care of patient, awake and alert. No S/S of distress/SOB or pain. Instructed on POC and to call for assist PRN. Fall precaution measures in place, will continue to monitor for changes Q1hr and PRN.
[2020-05-19] MEDS: ATORVASTATIN 20 MG TAB PO SCH (21:57)
[2020-05-20] MEDS: ACCU-CHEK COMFORT CURVE STRIP VI SCH ×4 (00:01→17:18)
[2020-05-20] MEDS: PIPERACILLIN-TAZOB 3.375GM 100 ML IV SCH ×4 (00:01→17:18)
[2020-05-20] MEDS: IPRATROPIUM BROM 0.5 MG/2.5ML INH SOL NEB SCH ×4 (00:58→18:40)
[2020-05-20] MEDS: ALBUTEROL SULF 2.5 MG/0.5ML(0.5%) NEB SOLN NEB SCH ×4 (00:58→18:40)
--- NOTE | 2020-05-20 00:59 | NUR ---
Respiratory note: AT BEDSIDE FOR MED JOSEP LEMON.
[2020-05-20 05:26] VITALS: BP 160/97
[2020-05-20] MEDS: InsuLIN REG 1unit/0.01ml Soln (100units/ml) SC SCH ×4 (05:28→17:47)
[2020-05-20] MEDS: cloNIDine HCL 0.1 MG TAB PO PRN (05:29)
--- NOTE | 2020-05-20 07:22 | NUR ---
Opening Note Assumed pt care form NOC RN. Pt is a/ox3-4 with no s/s of distress or SOB. Pt is currently sitting upright in bed with no complaints at this time. Apodaca is present, free of kinks and is draining to gravity. Discussed POC with pt; pt verbalized understanding. Safety measures maintained with call light within reach, bed in lowest position, side rails up, and bed alarm on. Will continue to monitor for changes.
[2020-05-20 09:00] VITALS: BP 164/111
--- NOTE | 2020-05-20 09:20 | NUR ---
Dr Casey at bedside MD to see pt. Discussed POC. Updated MD on pt's elevated BP. New order given, read back and verified. Will implement and continue to monitor.
[2020-05-20] MEDS: FLUCONAZOLE 100 MG TAB PO SCH (09:39)
[2020-05-20] MEDS: ASPirin 81 mg TAB PO SCH (09:39)
[2020-05-20] MEDS: levETIRAcetam 500 MG TAB PO SCH ×2 (09:39→22:15)
[2020-05-20] MEDS: CARVEDILOL 3.125 MG TAB PO SCH (09:39)
[2020-05-20] MEDS: ENOXAPARIN SOD 30 MG/0.3 ML SYRINGE SC SCH (09:40)
[2020-05-20] MEDS: TACROLIMUS 1 MG CAP PO SCH ×2 (09:40→16:06)
[2020-05-20] MEDS: FOLIC ACID 1 MG TAB PO SCH (09:40)
[2020-05-20] MEDS: MYCOPHENOLATE 1000mg/5ml ORALsusp 200mg/ml PO SCH ×2 (09:40→22:16)
[2020-05-20] MEDS: METOPROLOL TARTRATE 50 MG TAB PO SCH ×3 (10:02→22:17)
[2020-05-20 10:57] LABS: BUN/Creatinine Ratio 6.1
[2020-05-20 13:00] VITALS: BP 115/87
[2020-05-20] MEDS ORDERED: LISINOPRIL 10 MG TAB PO ONE (13:45)
[2020-05-20 15:40] LABS: Protein, Urine 78.8 mg/dL (0.0-11.9)
[2020-05-20] MEDS: MIRTAZAPINE 30 MG TAB PO SCH (17:18)
--- NOTE | 2020-05-20 18:11 | NUR ---
Elevated BP Reported BP of 164/104 with a HR of 68 reported. Assessed pt, currently asymptomatic. Reassessed, current BP is 110/74 with a HR of 64. Will continue to monitor.
[2020-05-20 18:13] VITALS: BP 110/74
--- NOTE | 2020-05-20 18:43 | NUR ---
Respiratory note: at bedside for med nahum dobbins.
--- NOTE | 2020-05-20 19:25 | NUR ---
RECEIVED PATIENT FROM DAY SHIFT RN. PATIENT RESTING IN BED. NO S/S OF DISTRESS NOTED. DENIED PAIN FOR NOW. REORIENTED PATIENT TIME, PLACE, AND SITUATION. PATIENT VERBALIZED UNDERSTANDING BUT REORIENTED NEEDED. PATIENT HAD BM. CLEANED PATIENT, PARTIAL LINEN CHANGED. PATIENT TOLERATED WELL. POC INSTRUCTED AND ENCOURAGED PATIENT TO CALL FOR DEAN OF INSTRUCTION IF NEEDED. BED IN LOWEST POSITION WITH SIDE RAILS UP X 2. CALL MAN WITHIN REACH. ALARM ON. CONTINUE TO MONITOR FOR CHANGES Q1H AND PRN.
--- NOTE | 2020-05-20 21:19 | NUR ---
REPOSITIONED PATIENT. PATIENT TOLERATED WELL. CONTINUE TO MONITOR.
[2020-05-20 22:00] VITALS: BP 154/93
[2020-05-20] MEDS: ATORVASTATIN 20 MG TAB PO SCH (22:15)
--- NOTE | 2020-05-20 22:42 | NUR ---
SCHEDULED ORAL MEDIATION GIVEN ORDERED WITH APPLE SAUCE. PATIENT SWALLOWED WELL. NO S/S OF ASPIRATION NOTED. CONTINUE TO MONITOR.
--- NOTE | 2020-05-20 22:47 | NUR ---
PATIENT'S FAMILY CALLED. PASSWORD VERIFIED. UPDATED ON PATIENT'S CURRENT SITUATION. CONTINUE TO MONITOR.
--- NOTE | 2020-05-20 23:24 | NUR ---
REPOSITIONED PATIENT. PATIENT TOLERATED WELL. CONTINUE TO MONITOR.
[2020-05-21] MEDS: PIPERACILLIN-TAZOB 3.375GM 100 ML IV SCH ×4 (00:22→17:33)
[2020-05-21] MEDS: ACCU-CHEK COMFORT CURVE STRIP VI SCH ×4 (00:23→17:33)
--- NOTE | 2020-05-21 00:23 | NUR ---
ACCU-CHECK, BS 100. NO COVERAGE. CONTINUE TO MONITOR.
[2020-05-21] MEDS: IPRATROPIUM BROM 0.5 MG/2.5ML INH SOL NEB SCH ×4 (00:44→19:35)
[2020-05-21] MEDS: ALBUTEROL SULF 2.5 MG/0.5ML(0.5%) NEB SOLN NEB SCH ×4 (00:44→19:35)
--- NOTE | 2020-05-21 01:29 | NUR ---
REPOSITIONED PATIENT. PATIENT TOLERATED WELL. CONTINUE TO MONITOR.
--- NOTE | 2020-05-21 03:29 | NUR ---
PATIENT HAD BM. CLEANED PATIENT, PARTIAL LINEN CHANGED. PATIENT TOLERATED WELL CONTINUE TO MONITOR.
[2020-05-21 05:00] VITALS: BP 156/101
[2020-05-21] MEDS: InsuLIN REG 1unit/0.01ml Soln (100units/ml) SC SCH ×4 (06:00→17:34)
[2020-05-21] MEDS: TACROLIMUS 1 MG CAP PO SCH (06:14)
--- NOTE | 2020-05-21 07:45 | NUR ---
Opening Note Assumed pt care from NOC RN. Pt is a/ox4 with no s/s of distress or SOB; pt is more alert and awake when compared to previous shifts. Pt is currently sitting upright in bed with no complaints at this time. Discussed POC with pt; pt verbalized understanding. Apodaca is present, draining to gravity and free of kinks. Safety measures maintained with call light within reach, bed in lowest position and side rails up. Will continue to monitor for changes.
[2020-05-21 08:08] LABS: BUN/Creatinine Ratio 6.7; Calcium 10.8 mg/dL (8.5-10.1); Potassium 4.3 mmol/L (3.5-5.1)
--- NOTE | 2020-05-21 08:58 | NUR ---
Elevated BP Reported BP of 167/115 with a HR of 69 reported. Will provide daily BP medications and reassess. Will continue to monitor. Addendum: 05/21/20 at 1021 by PIERRE MONTERO RN RN Reassessed BP after Daily medications given, current BP is 125/60 with a HR of 75. Will continue to monitor.
[2020-05-21 09:00] VITALS: BP 167/115
[2020-05-21] MEDS: FLUCONAZOLE 100 MG TAB PO SCH (09:03)
[2020-05-21] MEDS: ENOXAPARIN SOD 30 MG/0.3 ML SYRINGE SC SCH (09:03)
[2020-05-21] MEDS: ASPirin 81 mg TAB PO SCH (09:03)
[2020-05-21] MEDS: levETIRAcetam 500 MG TAB PO SCH ×2 (09:04→22:13)
[2020-05-21] MEDS: FOLIC ACID 1 MG TAB PO SCH (09:04)
[2020-05-21] MEDS: MYCOPHENOLATE 1000mg/5ml ORALsusp 200mg/ml PO SCH ×2 (09:04→22:13)
[2020-05-21] MEDS: METOPROLOL TARTRATE 50 MG TAB PO SCH ×2 (09:04→22:13)
--- NOTE | 2020-05-21 09:15 | NUR ---
Dr Casey at Bedside MD to see pt. Discussed POC with pt. Plans to arrange d/c planning Friday. No new orders at this time. Will continue to monitor.
[2020-05-21] MEDS ORDERED: LISINOPRIL 10 MG TAB PO SCH (10:00)
[2020-05-21] MEDS: MIRTAZAPINE 30 MG TAB PO SCH (17:33)
[2020-05-21 17:44] VITALS: BP 139/96
--- NOTE | 2020-05-21 19:20 | NUR ---
RECEIVED PATIENT FROM DAY SHIFT RN. PATIENT RESTING IN BED. NO S/S OF DISTRESS NOTED. DENIED PAIN FOR NOW. REORIENTED PATIENT TIME, PLACE, AND SITUATION. PATIENT VERBALIZED UNDERSTANDING REORIENTED NEEDED. REPOSITIONED PATIENT. PATIENT TOLERATED WELL. POC INSTRUCTED AND ENCOURAGED PATIENT TO CALL FOR PACKAGE DESIGNER IF NEEDED. BED IN LOWEST POSITION WITH SIDE RAILS UP X 2. CALL MAN WITHIN REACH. ALARM ON. CONTINUE TO MONITOR FOR CHANGES Q1H AND PRN.
--- NOTE | 2020-05-21 21:24 | NUR ---
PATIENT HAD BM. CLEANED PATIENT, PARTIAL LINEN CHANGED. PATIENT TOLERATED WELL CONTINUE TO MONITOR.
[2020-05-21 22:00] VITALS: BP 204/107
[2020-05-21] MEDS: ATORVASTATIN 20 MG TAB PO SCH (22:13)
--- NOTE | 2020-05-21 22:30 | NUR ---
SCHEDULED ORAL MEDIATION GIVEN ORDERED WITH APPLE SAUCE. PATIENT SWALLOWED WELL. NO S/S OF ASPIRATION NOTED. CONTINUE TO MONITOR.
[2020-05-21] MEDS: cloNIDine HCL 0.1 MG TAB PO PRN (23:22)
--- NOTE | 2020-05-21 23:22 | NUR ---
REASSESSED PATIENT @ 2310, PATIENT'S BP 180/103, HR 72, MEDICATED PATIENT WITH PRN BP MEDICATION. CONTINUE TO MONITOR.
[2020-05-22] MEDS: PIPERACILLIN-TAZOB 3.375GM 100 ML IV SCH ×4 (00:06→17:32)
[2020-05-22] MEDS: ACCU-CHEK COMFORT CURVE STRIP VI SCH ×4 (00:06→17:36)
[2020-05-22] MEDS: InsuLIN REG 1unit/0.01ml Soln (100units/ml) SC SCH ×4 (00:07→17:47)
--- NOTE | 2020-05-22 00:10 | NUR ---
ACCU-CHECK, BS 182. INSULIN GIVEN ORDERED. CONTINUE TO MONITOR.
--- NOTE | 2020-05-22 00:20 | NUR ---
REASSESSED BP 156/100. HR 68. CONTINUE TO MONITOR.
[2020-05-22] MEDS: IPRATROPIUM BROM 0.5 MG/2.5ML INH SOL NEB SCH ×4 (00:46→18:55)
[2020-05-22] MEDS: ALBUTEROL SULF 2.5 MG/0.5ML(0.5%) NEB SOLN NEB SCH ×4 (00:46→18:55)
--- NOTE | 2020-05-22 02:31 | NUR ---
PATIENT SLEEPING. NO S/S OF DISTRESS NOTED. CONTINUE CARE.
--- NOTE | 2020-05-22 03:31 | NUR ---
REPOSITIONED PATIENT. PATIENT TOLERATED WELL. CONTINUE TO MONITOR.
[2020-05-22 05:00] VITALS: BP 162/96
[2020-05-22] MEDS: cloNIDine HCL 0.1 MG TAB PO PRN ×2 (05:51→16:27)
--- NOTE | 2020-05-22 05:51 | NUR ---
ACCU-CHECK, BS 64. JUICE GIVEN TO INCREASE THE BS. PATIENT SWALLOWED WELL. NO S/S OF ASPIRATION NOTED. BP 162/96, MEDICATED PATIENT PRN BP MED ORDERED. REPOSITIONED PATIENT. PATIENT TOLERATED WELL. CONTINUE TO MONITOR.
--- NOTE | 2020-05-22 06:02 | NUR ---
BLOOD CHANO FROM MIDLINE. PATIENT TOLERATED WELL. CONTINUE CARE.
[2020-05-22] MEDS: TACROLIMUS 1 MG CAP PO SCH (06:37)
[2020-05-22 06:59] LABS: Calcium 11.1 mg/dL (8.5-10.1); Potassium 4.8 mmol/L (3.5-5.1)
[2020-05-22 07:01] LABS: BUN/Creatinine Ratio 7.5
--- NOTE | 2020-05-22 07:05 | NUR ---
PAGED HOSPITALIST, TO REQUEST ALTERNATIVE FOR HYDRALAZINE IV PRN, WHICH IS NOT AVAILABLE PER PHARMACY STAFF. PATIENT'S BP AT 1820 IS 176/118 AND CLONIDINE WAS GIVEN ABOUT 2 HOURS PRIOR. HOSPITALIST ORDERED, ENALAPRIL 2.5MG IV Q8 FOR SBP GREATER THAN 150. NOC SHIFT RN, MADE AWARE OF NEW ORDER.
--- NOTE | 2020-05-22 07:33 | NUR ---
RECEIVED PATIENT FROM NOC SHIFT RN, AWAKE, AND SLOW TO RESPOND TO QUESTIONS. PLAN OF CARE DISCUSSED. DENIES PAIN AT THIS TIME, NO SOB OR S/S DISTRESS NOTED. BED IN LOW AND LOCKED POSITIONS, RAILS PADDED FOR SEIZURE PRECAUTION. WILL CONTINUE TO MONITOR Q1HR AND PRN.
--- NOTE | 2020-05-22 10:18 | NUR ---
DR. JORDAN AT BEDSIDE, DISCUSSED PLAN OF CARE WITH PATIENT. PER MD, REQUEST THAT PATIENT AMBULATES WITH PHYSICAL THERAPIST.
--- NOTE | 2020-05-22 10:20 | NUR ---
SPOKE TO AND GAVE UPDATE.
[2020-05-22] MEDS: levETIRAcetam 500 MG TAB PO SCH ×2 (10:52→21:18)
[2020-05-22] MEDS: ASPirin 81 mg TAB PO SCH (10:52)
[2020-05-22] MEDS: FLUCONAZOLE 100 MG TAB PO SCH (10:52)
[2020-05-22] MEDS: ENOXAPARIN SOD 30 MG/0.3 ML SYRINGE SC SCH (10:53)
[2020-05-22] MEDS: METOPROLOL TARTRATE 50 MG TAB PO SCH ×2 (10:53→21:19)
[2020-05-22] MEDS: FOLIC ACID 1 MG TAB PO SCH (10:54)
[2020-05-22] MEDS: MYCOPHENOLATE 1000mg/5ml ORALsusp 200mg/ml PO SCH ×2 (10:55→21:18)
--- NOTE | 2020-05-22 11:17 | NUR ---
WOUND CARE NOTE: WOUND CARE IN TO SEE PATIENT FOR REEVALUATION. PATIENT ABLE TO SELF TURN. PATIENT'S MASD WITH SKIN EROSION TO SACRUM AND SCROTUM HAS RESOLVED. NEW PHOTOGRAPH TAKEN. RECOMMEND: CONTINUATION WITH ALL PREVIOUS WOUND CARE INTERVENTIONS ORDERED BY MD PREVENTATIVE. SKIN/WOUND CARE PLAN. CONTINUED MONITORING BY WOUND CARE TEAM. Addendum: 05/22/20 at 1541 by PHILLIP COLON RN RN Amended: Links added.
[2020-05-22 11:27] VITALS: BP 179/110
--- NOTE | 2020-05-22 12:09 | NUR ---
Nutrition Followup Notes Wt: 49.8 kg Pt was sleeping with no relatives at bedside when rounded this am. Pt is with a pureed diet with inadequate PO of an ave of 16% over 3 days per RN doc. Refer to dietary recommendations noted below. Est Energy needs: 2327-7689 kcals (30-35 kcal/kgBW), Est Protein needs: 51-57 gms/day (0.8-0.9 gm/kgBW) d/t pt with ESRD, no HD. Will continue to monitor and reassess prn. LABS: BUN 15 H, CREAT 1.99 H, CA 11.1 H, ALB 2.5 L GI: Pt had 1 BM on 05/21 per RN doc BS: 14 mod risk. Refer to wound assessment report for full details. PES: 1) Increased nutrient needs aeb pt is sedated, intubated, NPO r/t pt with no PO intake 2) Altered nutrition related lab values aeb hyperglycemia, elev RFTs, low GFR, severe hypoalbuminemia r/t current/chronic medical condition Comments: Will continue to F/u skin status PO intake status. F/u high 3-5 days Rec: 1) Consider CHO 60g/Renal Specific 50g Protein,2gmNa,K2,low phos along with current diet. 2) Consider Glucerna 1 carton bid as PO is low. 3) Continue assistance with meals. 4) Continue current plan of care
[2020-05-22 13:00] VITALS: BP 158/111
--- NOTE | 2020-05-22 16:38 | NUR ---
05/22/20 Pamela Spoke with Mimi treviñot at [facility] and stated the patient has authorization for 05/22/20 1000am and they are reviewing the clinical packet that was sent, requested authorization for 05/23/20.
--- NOTE | 2020-05-22 16:39 | NUR ---
Faxed to [facility] request for home health, home Pt, D/C planning
[2020-05-22 17:00] VITALS: BP 165/110
[2020-05-22] MEDS: MIRTAZAPINE 30 MG TAB PO SCH (17:32)
[2020-05-22] MEDS ORDERED: ENALAPRILAT 1.25 MG/ML-1ML VIAL IV PRN (19:15)
--- NOTE | 2020-05-22 19:35 | NUR ---
Opening Shift Note Assumed care of patient, awake and alert x2. No S/S of distress/SOB or pain. Apodaca is hung below bladder, draining yellow urine and free of kinks. Call light is within reach, side rail sup x2 bed is in the lowest position. Instructed on POC and to call for assist PRN, will continue to monitor for changes Q1hr and PRN.
[2020-05-22] MEDS: ATORVASTATIN 20 MG TAB PO SCH (21:19)
[2020-05-22 22:00] VITALS: BP 158/102
--- NOTE | 2020-05-22 23:03 | NUR ---
Elevated BP After 2200 BP medication was given and reassessed, the BP is now 154/91. Vasotec administered as ordered prn. Will reassess.
[2020-05-23] MEDS: ACCU-CHEK COMFORT CURVE STRIP VI SCH ×5 (00:14→21:50)
[2020-05-23] MEDS: PIPERACILLIN-TAZOB 3.375GM 100 ML IV SCH ×5 (00:14→21:50)
[2020-05-23] MEDS: cloNIDine HCL 0.1 MG TAB PO PRN ×2 (00:20→06:53)
--- NOTE | 2020-05-23 00:20 | NUR ---
Elevated BP Reassessment after administering Vasotec, BP is now 175/107. Clonidine administered as ordered prn. Will continue to monitor.
[2020-05-23] MEDS: IPRATROPIUM BROM 0.5 MG/2.5ML INH SOL NEB SCH ×4 (00:54→18:34)
[2020-05-23] MEDS: ALBUTEROL SULF 2.5 MG/0.5ML(0.5%) NEB SOLN NEB SCH ×4 (00:54→18:34)
--- NOTE | 2020-05-23 01:34 | NUR ---
BP is now 164/94, will continue to monitor.
[2020-05-23 05:00] VITALS: BP 158/108
--- NOTE | 2020-05-23 06:11 | NUR ---
Patient had a large, soft/formed BM. Patient cleaned and total linen change done. Z-guard and a new optifoam applied to sacrum. Patient repositioned for comfort, bed alarm is on, and call light is within reach.
[2020-05-23] MEDS: InsuLIN REG 1unit/0.01ml Soln (100units/ml) SC SCH ×5 (06:38→22:07)
[2020-05-23] MEDS: TACROLIMUS 1 MG CAP PO SCH ×3 (06:53→21:50)
--- NOTE | 2020-05-23 06:54 | NUR ---
Elevated BP BP is now 175/107. Clonidine administered as ordered prn. Will endorse reassessment to joe COLLIER.
[2020-05-23 09:15] VITALS: BP 195/105
[2020-05-23] MEDS: FLUCONAZOLE 100 MG TAB PO SCH (09:37)
[2020-05-23] MEDS: FOLIC ACID 1 MG TAB PO SCH (09:37)
[2020-05-23] MEDS: levETIRAcetam 500 MG TAB PO SCH ×2 (09:37→21:48)
[2020-05-23] MEDS: ASPirin 81 mg TAB PO SCH (09:37)
[2020-05-23] MEDS: ENOXAPARIN SOD 30 MG/0.3 ML SYRINGE SC SCH (09:38)
[2020-05-23] MEDS: amLODIPine BESYLATE 5 MG TAB PO SCH (09:39)
[2020-05-23] MEDS: METOPROLOL TARTRATE 50 MG TAB PO SCH (09:39)
[2020-05-23] MEDS ORDERED: ISOSORBIDE MONONITRATE ER 60 MG TAB PO ONE (11:00)
[2020-05-23] MEDS ORDERED: METOPROLOL TARTRATE 25 MG TAB PO ONE (11:00)
[2020-05-23] MEDS: MYCOPHENOLATE 1000mg/5ml ORALsusp 200mg/ml PO SCH ×2 (11:17→21:48)
--- NOTE | 2020-05-23 12:00 | NUR ---
05/23/20 ElaOO Spoke with Carleen ST at [facility] and stated she had received his clinical packet for the d/c planning and she will be working on it. Gave her call back number and stated to call when the patient is being discharged hopefully today.
[2020-05-23] MEDS: hydrALAZINE HCL 25 MG TAB PO SCH ×3 (12:05→21:48)
[2020-05-23 13:00] VITALS: BP 155/107
--- NOTE | 2020-05-23 14:00 | NUR ---
Spoke with Carleen ST at [facility] and informed her that the patient is not going home today per the Dr Richey. Stated to call when he is leaving so they can arrange transport for the patient, Gave authorization for 05/24/20 @1000am #[id number].
[2020-05-23 17:00] VITALS: BP 144/93
[2020-05-23] MEDS: MIRTAZAPINE 30 MG TAB PO SCH (17:36)
--- NOTE | 2020-05-23 19:10 | NUR ---
Opening Shift Note Assumed care of patient, awake and alert. No S/S of distress/SOB or pain. Instructed on POC and to call for assist PRN, will continue to monitor for changes Q1hr and PRN. Side rails up x2. Bed locked in lowest position. Call light within reach.
[2020-05-23] MEDS: MAGNESIUM OXIDE 400 MG TAB PO SCH (21:49)
[2020-05-23] MEDS: ATORVASTATIN 20 MG TAB PO SCH (21:49)
[2020-05-23] MEDS: METOPROLOL TARTRATE 25 MG TAB PO SCH (21:49)
[2020-05-23 22:21] VITALS: BP 158/89
[2020-05-24 04:59] VITALS: BP 170/89
[2020-05-24] MEDS: PIPERACILLIN-TAZOB 3.375GM 100 ML IV SCH ×3 (05:43→18:00)
[2020-05-24] MEDS: InsuLIN REG 1unit/0.01ml Soln (100units/ml) SC SCH ×3 (05:44→18:00)
[2020-05-24] MEDS: hydrALAZINE HCL 25 MG TAB PO SCH ×3 (05:44→15:30)
[2020-05-24] MEDS: ACCU-CHEK COMFORT CURVE STRIP VI SCH ×3 (05:44→18:00)
[2020-05-24] MEDS: IPRATROPIUM BROM 0.5 MG/2.5ML INH SOL NEB SCH ×3 (06:33→19:10)
[2020-05-24] MEDS: amLODIPine BESYLATE 5 MG TAB PO SCH (08:40)
[2020-05-24] MEDS: METOPROLOL TARTRATE 25 MG TAB PO SCH (08:41)
[2020-05-24 09:00] VITALS: BP 170/109
[2020-05-24] MEDS ORDERED: ISOSORBIDE MONONITRATE ER 60 MG TAB PO SCH (10:00)
[2020-05-24] MEDS: MYCOPHENOLATE 1000mg/5ml ORALsusp 200mg/ml PO SCH (10:36)
[2020-05-24] MEDS: FOLIC ACID 1 MG TAB PO SCH (10:37)
[2020-05-24] MEDS: MAGNESIUM OXIDE 400 MG TAB PO SCH (10:38)
[2020-05-24] MEDS: levETIRAcetam 500 MG TAB PO SCH (10:39)
[2020-05-24] MEDS: ASPirin 81 mg TAB PO SCH (10:40)
[2020-05-24] MEDS: FLUCONAZOLE 100 MG TAB PO SCH (10:42)
[2020-05-24] MEDS: TACROLIMUS 1 MG CAP PO SCH (10:43)
[2020-05-24] MEDS: ENOXAPARIN SOD 30 MG/0.3 ML SYRINGE SC SCH (10:43)
--- NOTE | 2020-05-24 11:30 | NUR ---
Conway catheter dc'd Order to discontinue conway catheter. Conway dc'd with clean technique following deflation of balloon. Patient tolerated well with no complaints of pain. Continue care.
[2020-05-24] MEDS: ALBUTEROL SULF 2.5 MG/0.5ML(0.5%) NEB SOLN NEB SCH ×2 (11:48→19:11)
[2020-05-24 13:00] VITALS: BP 177/89
[2020-05-24] MEDS ORDERED: ISO60SRT PO (15:18)
[2020-05-24] MEDS ORDERED: METO-169 PO (15:18)
[2020-05-24] MEDS ORDERED: CLON0.1T PO (15:19)
--- NOTE | 2020-05-24 16:47 | NUR ---
received call from Margot mold yard worker per Margot Wilcox from [facility] will set up home transportation for patient.
[2020-05-24 17:00] VITALS: BP 104/66
--- NOTE | 2020-05-24 17:30 | NUR ---
RECEIVED PHONE CALL FROM [facility] ETA IS [phone]
[2020-05-24] MEDS: MIRTAZAPINE 30 MG TAB PO SCH (18:00)
--- NOTE | 2020-05-24 19:08 | NUR ---
Discharge instructions given as ordered to patients and patients via telephone and Encourage to follow up with PMD as instructed. All questions and concerns addressed. Patient verbalized understanding. Medication reconciliation form completed and copy given to patient. IV removed with catheter intact, pressure dressing applied. Telemetry unit returned to ICU. Patient resting in bed waiting transportation from [place] transportation to home.
--- NOTE | 2020-05-24 19:10 | NUR ---
TRANSPORTATION HAS NOT ARRIVED AT THIS TIME, CARE AND DISCHARGE ENDORSED TO [facility] AMIRA SILVA.
--- NOTE | 2020-05-24 21:10 | NUR ---
Discharge instructions given as ordered. Patient taken to ambulance transport via stretcher with all personal belongings, accompanied by [facility] staff. No distress noted at time of departure.
== END 2020-05-24 21:07 | disposition home or self-care (01) | DRG 207 ==
LOC: EDBD 05:20 → ER 05:20 → EDUNIT# 05:20 → TELE 05:21 → ICU WEST 05-08 10:28 → TELE-WESTW 05-17 18:31
PROVIDERS: ADMIT Internal Medicine; ATTEND Internal Medicine Nephrology
PROC: 5A1955Z Respiratory Ventilation, Greater than 96 Consecutive Hours (ICD-10-PCS; principal; 2020-05-07)
PROC: 0BH17EZ Insertion of Endotracheal Airway into Trachea, Via Natural or Artificial Opening (ICD-10-PCS; 2020-05-07)
PROC: 02HV33Z Insertion of Infusion Device into Superior Vena Cava, Percutaneous Approach (ICD-10-PCS; 2020-05-07)
PROC: 0W993ZZ Drainage of Right Pleural Cavity, Percutaneous Approach (ICD-10-PCS; 2020-05-09)
PROC: 0W9B3ZZ Drainage of Left Pleural Cavity, Percutaneous Approach (ICD-10-PCS; 2020-05-10)
DX: J15.6 Pneumonia due to other Gram-negative bacteria (principal); J96.01 Acute respiratory failure with hypoxia; N17.0 Acute kidney failure with tubular necrosis; N18.6 End stage renal disease; I50.23 Acute on chronic systolic (congestive) heart failure; E43 Unspecified severe protein-calorie malnutrition; I13.2 Hypertensive heart and chronic kidney disease with heart failure and with stage 5 chronic kidney disease, or end stage renal disease; E87.2 Acidosis; J45.901 Unspecified asthma with (acute) exacerbation; J81.1 Chronic pulmonary edema; J98.11 Atelectasis; J44.1 Chronic obstructive pulmonary disease with (acute) exacerbation; Q61.3 Polycystic kidney, unspecified; D61.818 Other pancytopenia; I16.1 Hypertensive emergency; Z99.11 Dependence on respirator [ventilator] status; J90 Pleural effusion, not elsewhere classified; Z94.0 Kidney transplant status; D63.1 Anemia in chronic kidney disease; E11.65 Type 2 diabetes mellitus with hyperglycemia; E78.5 Hyperlipidemia, unspecified; Z20.828 Contact with and (suspected) exposure to other viral communicable diseases
CPT/HCPCS: 10022; 36415; 36600; 70450; 71045; 76604; 76775; 76942; 80048; 80053; 80197; 80307; 80320; 80329; 81001; 82306; 82570; 82805; 82962; 83036; 83605; 83615; 83735; 83880; 83970; 83986; 84100; 84156; 84300; 84484; 85007; 85025; 85027; 85379; 85610; 85730; 87040; 87070; 87077; 87081; 87086; 87186; 87205; 89051; 92610; 93005; 93306; 93971; 94002; 94003; 94640; 97110; 97116; 97163; 97530; C9113; G0378; J0330; J0696; J1100; J1450; J1815; J2250; J2543; J3480; J7507; J7517; P9047

== ENCOUNTER 2020-06-17 12:19 | Inpatient (IN) | payer OTHER, MEDICAID ==
[~2020-06-17] VITALS: Ht 170.2 cm; Wt 58.0 kg
[~2020-06-17 12:19] MED LIST changes: +CLON0.1T PO; +ISO60SRT PO
[2020-06-17] MEDS ORDERED: SODIUM CHLORIDE 0.9% 1,000 ML IV ONE ×2 (12:37)
[2020-06-17] MEDS ORDERED: DEXTROSE 10% 1,000 ML IV ONE (12:45)
[2020-06-17] MEDS ORDERED: PIPERACILLIN-TAZOB 3.375GM 100 ML IV ONE (12:45)
[2020-06-17] MEDS ORDERED: DEXTROSE 50% SYRINGE 50 ML IV ONE (13:52)
[2020-06-17 14:03] LABS: Basophils # (auto) 0 10 ^3/uL (0-0.2); Basophils % (auto) 0.3 % (0.0-2.0); Eosinophils # (auto) 0.1 10 ^3/uL (0-0.8); Eosinophils % (auto) 1.1 % (0.0-7.0); Hematocrit 26.9 % (41.0-53.0); Hemoglobin 8.6 g/dL (13.5-17.5); Lymphocytes # (auto) 1.8 10 ^3/uL (0.4-5.4); Lymphocytes % (auto) 22.3 % (10.0-50.0); Mean Corpuscular Hemoglobin 27.6 pg (28.0-32.0); Mean Corpuscular Hgb Conc. 32.1 g/dL (32.0-36.0); Mean Corpuscular Volume 85.8 fL (80.0-100.0); Monocytes # (auto) 0.2 10 ^3/uL (0-1.3); Monocytes % (auto) 2.8 % (0.0-12.0); Neutrophils % (auto) 73.5 % (37.0-80.0); Platelet Count (auto) 169 10^3/uL (140-450); Red Blood Cells 3.13 10^6/uL (4.5-5.90); White Blood Cell 8.2 10^3/uL (4.4-10.8)
[2020-06-17 14:07] LABS: Red Cell Distribution Width 21.3 % (11.8-14.3)
[2020-06-17] MEDS ORDERED: DEXTROSE (50%) 50ML SYRG IV ONE (14:15)
[2020-06-17 14:18] LABS: Albumin 2.3 g/dL (3.4-5.0); Anion Gap 9 (5-15); Blood Urea Nitrogen 43 mg/dL (7-18); Calcium 10.5 mg/dL (8.5-10.1); Carbon Dioxide 20 mmol/L (21-32); Chloride 111 mmol/L (98-107); Potassium 4.5 mmol/L (3.5-5.1); Sodium 140 mmol/L (136-145)
[2020-06-17 14:20] LABS: INR 1.13 (0.9-1.15)
[2020-06-17 14:25] LABS: Alanine Aminotransferase 28 U/L (16-61); Alkaline Phosphatase 120 U/L (45-117); Aspartate Aminotransferase 27 U/L (15-37); BUN/Creatinine Ratio 20.5; Bilirubin, Total 0.4 mg/dL (0.2-1.0); GFR African American 41 mL/min; GFR Non-African American 34 mL/min; Total Protein 6.4 g/dL (6.4-8.2)
[2020-06-17 14:40] LABS: Urine Bacteria FEW /hpf (None Seen); Urine Blood Negative /uL (Negative); Urine Specific Gravity 1.014 (1.001-1.035); Urine WBC 6 /hpf (0 - 3)
[2020-06-17 14:57] LABS: Glucose 49 mg/dL (74-106)
[2020-06-17] MEDS ORDERED: MORPHINE SULF INJ 2 MG/ML SYRINGE 1ML IV PRN (16:00)
[2020-06-17] MEDS ORDERED: NITROGLYCERIN 0.4 MG SL TAB SL PRN (16:00)
[2020-06-17] MEDS ORDERED: ALBUTEROL SULF 2.5 MG/0.5ML(0.5%) NEB SOLN NEB PRN (17:15)
[2020-06-17] MEDS ORDERED: ACETAMINOPHEN 500 MG TAB PO PRN (17:15)
[2020-06-17] MEDS ORDERED: LACTULOSE 20Gm/30ML SOLN PO PRN (17:15)
[2020-06-17] MEDS ORDERED: DEXTROSE (50%) 50ML SYRG IV PRN (17:15)
[2020-06-17] MEDS ORDERED: ONDANSETRON HCL 4 MG/2 ML VIAL IV PRN (17:15)
[2020-06-17] MEDS: DexAMETHasone SOD PHOS 10MG/1ML VIAL INJ IV SCH (17:15)
[2020-06-17] MEDS ORDERED: [UNRECOGNIZED DRUG - OTHER] PO SCH (18:00)
[2020-06-17 18:18] VITALS: BP 119/65
[2020-06-17] MEDS ORDERED: ENOXAPARIN SOD 40 MG/0.4 ML SYRINGE SC SCH (18:23)
[2020-06-17] MEDS: METOCLOPRAMIDE HCL 10 MG TAB PO SCH (18:55)
[2020-06-17] MEDS: TAMSULOSIN HYDROCHLORIDE 0.4 MG CAP PO SCH (18:55)
[2020-06-17] MEDS ORDERED: DexAMETHasone SOD PHOS 10MG/1ML VIAL INJ IV ONE (19:00)
--- NOTE | 2020-06-17 19:40 | NUR ---
Opening Shift Note Assumed care of patient. Awake, alert and oriented x3. Periods of confusion. No S/S of distress/SOB or pain at this time. Pt is on RA with even and unlabored respirations. Apodaca is off the floor, patent and draining clear, yellow urine. Instructed on POC and to call for assist PRN. Bed locked, in lowest position, call light within reach, side rails up x2. Fall precautions and seizure precautions in place. Will continue to monitor for changes Q1hr and PRN.
--- NOTE | 2020-06-17 20:00 | NUR ---
ATTEMPTED NEW IV FOR PATIENT TO RUN AZITHROMYCIN IV DUE TO INCOMPATIBILITY WITH D10W. UNSUCCESSFUL IV ATTEMPT. WILL ENDORSE TO BALBINA DIMAS.
[2020-06-17] MEDS: ACCU-CHEK COMFORT CURVE STRIP VI SCH (20:28)
[2020-06-17] MEDS: AZITHROMYCIN 500MG/ 250ML 250 ML IV SCH (20:51)
[2020-06-17] MEDS: traMADol HCL 50 MG TAB PO PRN (20:52)
[2020-06-17 20:57] VITALS: BP 119/65
--- NOTE | 2020-06-17 21:30 | NUR ---
Received call from pts Password verified. Gave update/POC of pt. Informed that pts own meds were not here with him and if she could bring the meds that were needed. Said she would drop the meds off.
--- NOTE | 2020-06-17 21:55 | NUR ---
Respiratory note: RESP MEDS HELD WAITING FOR COVID RESULTS, NO DISTRESS NOTED AT THIS TIME, PT PULSE OX 100% ON RA, RR 18
[2020-06-17 22:00] VITALS: BP 126/77
[2020-06-17] MEDS: BUDESONIDE (INHALATION) 180 MCG IH IN SCH (22:00)
[2020-06-17] MEDS ORDERED: MYCOPHENOLATE 500 MG TAB PO SCH (22:00)
[2020-06-17] MEDS: CINACALCET HYDROCHLORIDE 30 MG TAB PO SCH (22:00)
[2020-06-17] MEDS: hydrALAZINE HCL 25 MG TAB PO SCH (22:00)
[2020-06-17] MEDS: ALBUTEROL SULF HFA 90MCG INH 200DOSE IN SCH (22:00)
[2020-06-17] MEDS: ALBUTEROL SULF 2.5 MG/0.5ML(0.5%) NEB SOLN NEB SCH ×2 (22:06→22:07)
[2020-06-17] MEDS: IPRATROPIUM BROM 0.5 MG/2.5ML INH SOL NEB SCH ×2 (22:06→22:07)
[2020-06-17] MEDS: PIPERACILLIN-TAZOB 2.25GM 50 ML IV SCH (23:45)
[2020-06-17] MEDS: DOCUSATE SOD 100 MG CAP PO SCH (23:47)
[2020-06-17] MEDS: levETIRAcetam 500 MG TAB PO SCH (23:47)
[2020-06-17] MEDS: PANTOPRAZOLE 40 MG TAB PO SCH (23:48)
[2020-06-17] MEDS: TACROLIMUS 1 MG CAP PO SCH (23:48)
[2020-06-17] MEDS: MIRTAZAPINE 30 MG TAB PO SCH (23:49)
--- NOTE | 2020-06-18 00:05 | NUR ---
Paged Hospitalist Pts BS [phone]. No sliding scale ordered and pt is to be running D10 @75mL
[2020-06-18] MEDS: ACCU-CHEK COMFORT CURVE STRIP VI SCH ×6 (00:22→20:25)
[2020-06-18] MEDS: LINEZOLID 600MG/300ML 300 ML IV SCH ×3 (02:20→22:24)
[2020-06-18] MEDS ORDERED: DEXTROSE (50%) 50ML SYRG IV PRN (04:15)
--- NOTE | 2020-06-18 04:16 | NUR ---
Call back from hospitalist Pts [phone] BS [phone]. New orders received for moderate sliding scale to begin at 0800 and DC D10. Will carry out orders and continue to monitor.
[2020-06-18 05:00] VITALS: BP 146/85
[2020-06-18] MEDS: PIPERACILLIN-TAZOB 2.25GM 50 ML IV SCH ×4 (05:47→20:25)
[2020-06-18] MEDS: hydrALAZINE HCL 25 MG TAB PO SCH ×3 (05:47→22:24)
[2020-06-18] MEDS: BUDESONIDE (INHALATION) 180 MCG IH IN SCH ×2 (06:00→22:00)
[2020-06-18] MEDS: IPRATROPIUM BROM 0.5 MG/2.5ML INH SOL NEB SCH ×4 (06:00→23:34)
[2020-06-18] MEDS: ALBUTEROL SULF 2.5 MG/0.5ML(0.5%) NEB SOLN NEB SCH ×4 (06:00→23:34)
[2020-06-18] MEDS: ALBUTEROL SULF HFA 90MCG INH 200DOSE IN SCH ×3 (06:00→22:00)
[2020-06-18 06:28] LABS: Basophils # (auto) 0 10 ^3/uL (0-0.2); Basophils % (auto) 0.2 % (0.0-2.0); Eosinophils # (auto) 0 10 ^3/uL (0-0.8); Eosinophils % (auto) 0.2 % (0.0-7.0); Hematocrit 29.6 % (41.0-53.0); Hemoglobin 9.6 g/dL (13.5-17.5); Lymphocytes # (auto) 0.4 10 ^3/uL (0.4-5.4); Lymphocytes % (auto) 10.3 % (10.0-50.0); Mean Corpuscular Hemoglobin 27.7 pg (28.0-32.0); Mean Corpuscular Hgb Conc. 32.4 g/dL (32.0-36.0); Mean Corpuscular Volume 85.4 fL (80.0-100.0); Monocytes # (auto) 0 10 ^3/uL (0-1.3); Monocytes % (auto) 1.1 % (0.0-12.0); Neutrophils # (auto) 3.2 10 ^3/uL (1.6-8.6); Neutrophils % (auto) 88.2 % (37.0-80.0); Nucleated Red Blood Cells % 0.1 %; Platelet Count (auto) 141 10^3/uL (140-450); Red Blood Cells 3.46 10^6/uL (4.5-5.90); White Blood Cell 3.6 10^3/uL (4.4-10.8)
--- NOTE | 2020-06-18 06:40 | NUR ---
RT NOTE: AT BEDSIDE ASSESSING PT, HR 54, SPO2 95% ON RA, RR 16. PT IN BED SLEEPING, NO S/S OF SOB. WILL CONTINUE TO MONITOR PT.
[2020-06-18 06:48] LABS: Albumin 2.1 g/dL (3.4-5.0); BUN/Creatinine Ratio 17.5; Bilirubin, Total 0.4 mg/dL (0.2-1.0); Calcium 10.2 mg/dL (8.5-10.1)
[2020-06-18 07:27] LABS: Potassium 5.9 mmol/L (3.5-5.1)
--- NOTE | 2020-06-18 07:31 | NUR ---
PAGED BULK TRUCK DRIVER HOSPITALIST REGARDING CRITICAL POTASSIUM.
--- NOTE | 2020-06-18 08:09 | NUR ---
SPOKE WITH JOSE IN REGARDS TO BRINGING IN HOME MEDICATIONS. STATED SHE WILL ATTEMPT TO BRING IN MEDICATION SENSIPAR LATER TODAY.
--- NOTE | 2020-06-18 08:28 | NUR ---
PAGED REINFORCED STEEL PLACING SUPERVISOR HOSPITALIST AGAIN FOR CRITICAL POTASSIUM, SPOKE TO Domingo RAMIREZ, INFORMED OF PATIENTS PMH AND CURRENT LABS, RECIEVED NEW ORDERS. SEE EMAR.
[2020-06-18] MEDS ORDERED: SODIUM ZIRCONIUM CYCL 10 GM PAK PO ONE ×3 (08:45→16:00)
[2020-06-18] MEDS: [UNRECOGNIZED DRUG - OTHER] PO SCH ×3 (08:49→18:04)
[2020-06-18] MEDS: InsuLIN REG 1unit/0.01ml Soln (100units/ml) SC SCH ×4 (08:51→20:26)
[2020-06-18] MEDS: METOCLOPRAMIDE HCL 10 MG TAB PO SCH ×3 (08:55→17:00)
[2020-06-18 09:00] VITALS: BP_SYST 144; BP_SYST 145; BP_DIAS 69
[2020-06-18] MEDS ORDERED: MYFORTIC 360 MG PO SCH (10:00)
[2020-06-18] MEDS: FOLIC ACID 0.8 MG PO SCH (10:00)
[2020-06-18] MEDS ORDERED: MYCOPHENOLATE 1000mg/5ml ORALsusp 200mg/ml PO SCH (10:00)
[2020-06-18] MEDS: DexAMETHasone SOD PHOS 10MG/1ML VIAL INJ IV SCH (10:00)
[2020-06-18] MEDS ORDERED: ENOXAPARIN SOD 40 MG/0.4 ML SYRINGE SC SCH (10:00)
[2020-06-18] MEDS: ZINC SULFATE 220mg CAP or TAB PO SCH (10:00)
[2020-06-18] MEDS: ASCORBIC ACID 1,000 MG TAB PO SCH (10:00)
[2020-06-18] MEDS: CHOLECALCIFEROL (VITD3) 2,000 UNIT CAP PO SCH (10:00)
[2020-06-18] MEDS: PANTOPRAZOLE 40 MG TAB PO SCH ×2 (10:35→22:26)
[2020-06-18] MEDS: SERTRALINE HCL 50 MG TAB PO SCH (10:35)
[2020-06-18] MEDS: TACROLIMUS 1 MG CAP PO SCH ×2 (10:36→22:00)
[2020-06-18] MEDS: MAGNESIUM OXIDE 400 MG TAB PO SCH (10:36)
[2020-06-18] MEDS: amLODIPine BESYLATE 5 MG TAB PO SCH (10:36)
[2020-06-18] MEDS: levETIRAcetam 500 MG TAB PO SCH ×2 (10:37→22:25)
[2020-06-18] MEDS: ISOSORBIDE MONONITRATE ER 60 MG TAB PO SCH (10:37)
[2020-06-18] MEDS: DOCUSATE SOD 100 MG CAP PO SCH ×2 (10:38→22:25)
[2020-06-18] MEDS: ASPirin 81 mg TAB PO SCH (10:39)
--- NOTE | 2020-06-18 12:25 | NUR ---
KRAIG RAMIREZ REGARDING CRITICAL BLOOD SUGAR. AWAITING CALL BACK.
--- NOTE | 2020-06-18 12:59 | NUR ---
SPOKE TO Domingo RAMIREZ, RECIEVED NEW ORDERS. SEE EMAR.
[2020-06-18 13:00] VITALS: BP 147/83
[2020-06-18] MEDS ORDERED: INSULIN LISPRO (HUMAN) 100 UNITS/ML ML SC ONE (13:00)
--- NOTE | 2020-06-18 13:15 | NUR ---
PATIENT HAD LARGE BM, PATIENT BATHED AND FRESH LINEN PLACED. PATIENT COMFORTABLE IN BED. SEIZURE PRECAUTIONS IN PLACE. WILL CONTINUE TO MONITOR.
[2020-06-18] MEDS: AZITHROMYCIN 500MG/ 250ML 250 ML IV SCH (16:59)
[2020-06-18 17:00] VITALS: BP 149/84
[2020-06-18] MEDS: TAMSULOSIN HYDROCHLORIDE 0.4 MG CAP PO SCH (17:00)
[2020-06-18] MEDS ORDERED: ENOXAPARIN SOD 30 MG/0.3 ML SYRINGE SC SCH (18:00)
[2020-06-18] MEDS: traMADol HCL 50 MG TAB PO PRN (18:04)
--- NOTE | 2020-06-18 21:24 | NUR ---
Spoke with pts Anahi regarding missing home meds Anahi stated that the medication Sensipar is not being given at home pending consult with Top Stitcher.
[2020-06-18 22:00] VITALS: BP 131/73
[2020-06-18] MEDS ORDERED: TACROLIMUS 1 MG CAP PO SCH (22:00)
[2020-06-18] MEDS ORDERED: ATORVASTATIN 20 MG TAB PO SCH (22:00)
[2020-06-18] MEDS: CINACALCET HYDROCHLORIDE 30 MG TAB PO SCH (22:00)
[2020-06-18] MEDS: MYCOPHENOLATE 1000mg/5ml ORALsusp 200mg/ml PO SCH (22:25)
[2020-06-18] MEDS: MIRTAZAPINE 30 MG TAB PO SCH (22:26)
--- NOTE | 2020-06-18 22:45 | NUR ---
PT ASSESSED, NO SOB NOTED. SAT 97% ON RA, BS CLEAR BILATERALLY
[2020-06-19] MEDS: ACCU-CHEK COMFORT CURVE STRIP VI SCH ×5 (00:16→16:00)
[2020-06-19] MEDS: InsuLIN REG 1unit/0.01ml Soln (100units/ml) SC SCH ×5 (00:26→16:00)
[2020-06-19] MEDS: PIPERACILLIN-TAZOB 2.25GM 50 ML IV SCH ×3 (02:34→13:58)
[2020-06-19 05:00] VITALS: BP 136/76
[2020-06-19] MEDS: ALBUTEROL SULF HFA 90MCG INH 200DOSE IN SCH ×2 (06:00→13:50)
[2020-06-19] MEDS: IPRATROPIUM BROM 0.5 MG/2.5ML INH SOL NEB SCH ×2 (06:00→12:00)
[2020-06-19] MEDS: BUDESONIDE (INHALATION) 180 MCG IH IN SCH (06:00)
[2020-06-19] MEDS: ALBUTEROL SULF 2.5 MG/0.5ML(0.5%) NEB SOLN NEB SCH ×2 (06:00→12:00)
[2020-06-19] MEDS: TACROLIMUS 1 MG CAP PO SCH (06:49)
[2020-06-19] MEDS: hydrALAZINE HCL 25 MG TAB PO SCH ×2 (06:49→13:58)
--- NOTE | 2020-06-19 07:20 | NUR ---
OPENING NOTE ASSUMED CARE OF PT. ALERT AND AWAKE. NO S/S OF SOB/DISTRESS NOTED. BED SET TO LOWEST POSITION/LOCKED. BEDSIDE RAILS UP X2. CALL LIGHT WITHIN REACH. INSTRUCTED PT TO CALL FOR ASSISTANCE. UPDATED ON POC. PT VERBALIZED UNDERSTANDING. WILL CONTINUE TO MONITOR Q1HR AND PRN.
[2020-06-19 07:24] LABS: Potassium 4.2 mmol/L (3.5-5.1)
[2020-06-19 07:29] LABS: BUN/Creatinine Ratio 20.2; Calcium 9.9 mg/dL (8.5-10.1)
[2020-06-19] MEDS: METOCLOPRAMIDE HCL 10 MG TAB PO SCH ×2 (08:18→12:15)
[2020-06-19] MEDS: [UNRECOGNIZED DRUG - OTHER] PO SCH ×2 (08:18→12:15)
[2020-06-19 09:00] VITALS: BP 142/79
[2020-06-19] MEDS: ASCORBIC ACID 1,000 MG TAB PO SCH (10:00)
[2020-06-19] MEDS ORDERED: LINEZOLID 600MG/300ML 300 ML IV SCH (10:00)
[2020-06-19] MEDS: FOLIC ACID 0.8 MG PO SCH (10:00)
[2020-06-19] MEDS: ZINC SULFATE 220mg CAP or TAB PO SCH (10:00)
[2020-06-19] MEDS: CHOLECALCIFEROL (VITD3) 2,000 UNIT CAP PO SCH (10:00)
[2020-06-19] MEDS: ASPirin 81 mg TAB PO SCH (10:06)
[2020-06-19] MEDS: levETIRAcetam 500 MG TAB PO SCH (10:07)
[2020-06-19] MEDS: MYCOPHENOLATE 1000mg/5ml ORALsusp 200mg/ml PO SCH (10:07)
[2020-06-19] MEDS: DOCUSATE SOD 100 MG CAP PO SCH (10:07)
[2020-06-19] MEDS: MAGNESIUM OXIDE 400 MG TAB PO SCH (10:08)
[2020-06-19] MEDS: amLODIPine BESYLATE 5 MG TAB PO SCH (10:08)
[2020-06-19] MEDS: SERTRALINE HCL 50 MG TAB PO SCH (10:09)
[2020-06-19] MEDS: PANTOPRAZOLE 40 MG TAB PO SCH (10:09)
[2020-06-19] MEDS: ISOSORBIDE MONONITRATE ER 60 MG TAB PO SCH (12:14)
[2020-06-19] MEDS: LINEZOLID 600MG/300ML 300 ML IV SCH (12:38)
[2020-06-19 13:00] VITALS: BP 129/79
--- NOTE | 2020-06-19 13:14 | NUR ---
Apodaca catheter dc'd Order to discontinue Apodaca catheter. Apodaca dc'd with clean technique following deflation of balloon. Patient tolerated well with no complaints of pain. Continue care.
[2020-06-19 14:01] VITALS: BP 129/79
--- NOTE | 2020-06-19 16:26 | NUR ---
1340 06/19/20 - Contacted NARA VISA at [phone], regarding orders to resume home health and transportation. Spoke with audit analyst Hans who stated Karmen is the case resource manager assigned to this patient today and she was unavailable at this time but would call me back. I provided Hans with my call back info. Hans did acknowledge receiving current clinicals and pending orders. 1400 - Contacted by case resource manager Karmen who stated she was processing the order to resume home health, wanted more info why patient was requiring transportation home. Addendum: 06/19/20 at 1651 by Bettina Wheeler RN [id number] 06/19/20 - Contacted NARA VISA at [phone], requesting updates on transportation and resume home health orders. Spoke with audit analyst Osman who stated transportation is scheduled for pickup at 1700 and home health will contact patient in AM.
--- NOTE | 2020-06-19 17:15 | NUR ---
Discharge instructions given as ordered. Encourage to follow up with at [facility] as instructed. All questions and concerns addressed. Patient verbalized understanding. IV removed with catheter intact, pressure dressing applied. Telemetry unit returned to ICU. Patient taken to vehicle via wheelchair with all personal belongings, accompanied by [facility] staff. No distress noted at time of departure.
== END 2020-06-19 17:14 | disposition home health service (06) | DRG 637 ==
LOC: EDBD 12:19 → ER 12:19 → TELE 12:20 → TELE-EAST 18:11
PROVIDERS: ADMIT Internal Medicine; ATTEND Internal Medicine
DX: E11.649 Type 2 diabetes mellitus with hypoglycemia without coma (principal); J18.9 Pneumonia, unspecified organism; T86.19 Other complication of kidney transplant; E44.0 Moderate protein-calorie malnutrition; J90 Pleural effusion, not elsewhere classified; I13.2 Hypertensive heart and chronic kidney disease with heart failure and with stage 5 chronic kidney disease, or end stage renal disease; Q61.3 Polycystic kidney, unspecified; N18.6 End stage renal disease; N17.9 Acute kidney failure, unspecified; E87.5 Hyperkalemia; N18.3 Chronic kidney disease, stage 3 (moderate); E11.22 Type 2 diabetes mellitus with diabetic chronic kidney disease; I25.10 Atherosclerotic heart disease of native coronary artery without angina pectoris; I50.9 Heart failure, unspecified; N30.90 Cystitis, unspecified without hematuria; Z20.828 Contact with and (suspected) exposure to other viral communicable diseases; J44.9 Chronic obstructive pulmonary disease, unspecified; R62.7 Adult failure to thrive; Y83.0 Surgical operation with transplant of whole organ as the cause of abnormal reaction of the patient, or of later complication, without mention of misadventure at the time of the procedure; K21.9 Gastro-esophageal reflux disease without esophagitis; R00.1 Bradycardia, unspecified; Z68.20 Body mass index [BMI] 20.0-20.9, adult; Y92.89 Other specified places as the place of occurrence of the external cause; Z99.3 Dependence on wheelchair; Z91.041 Radiographic dye allergy status
CPT/HCPCS: 36415; 70450; 71045; 71250; 74176; 80048; 80053; 81001; 82962; 83036; 83605; 83880; 84443; 84484; 85025; 85610; 85730; 87040; 87081; 87086; 87426; 93005; 99291; G0378; J1100; J1815; J2405; J2543; J7507; J7517

== ENCOUNTER 2020-06-22 15:27 | Inpatient (IN) | payer OTHER, MEDICAID ==
[~2020-06-22] VITALS: Ht 180.3 cm; Wt 56.4 kg
[2020-06-22] VITALS (21 sets, daily range): BP systolic 100–134; BP diastolic 74–89
[2020-06-22] MEDS ORDERED: ETOMIDATE (2MG/ML) 20ML VIAL IV ONE ×2 (15:39→16:15)
[2020-06-22] MEDS ORDERED: SUCCINYLCHOLINE CHLORIDE 20 MG/ML 10ML VIAL IV ONE ×2 (15:40→16:15)
[2020-06-22] MEDS ORDERED: MIDAZOLAM DRIP 50 mg/50mL 50 ML IV ONE (15:40)
[2020-06-22] MEDS ORDERED: DexAMETHasone SOD PHOS 10MG/1ML VIAL INJ IV ONE (15:45)
[2020-06-22] MEDS ORDERED: cefTRIAXone 1GM/50ML D5W 50 ML IV ONE (15:45)
[2020-06-22] MEDS ORDERED: MIDAZOLAM DRIP 50 mg/50mL 50 ML IV SCH (16:15)
[2020-06-22 16:27] LABS: INR 1.14 (0.9-1.15); Partial Thromboplastin Time 28.5 sec (23.0-31.2)
[2020-06-22 16:30] LABS: Albumin 2.1 g/dL (3.4-5.0); Anion Gap 3 (5-15); Blood Urea Nitrogen 32 mg/dL (7-18); Calcium 10.2 mg/dL (8.5-10.1); Carbon Dioxide 22 mmol/L (21-32); Chloride 118 mmol/L (98-107); Glucose 281 mg/dL (74-106); Potassium 5.4 mmol/L (3.5-5.1); Sodium 143 mmol/L (136-145)
[2020-06-22 16:39] LABS: Alanine Aminotransferase 36 U/L (16-61); Alkaline Phosphatase 96 U/L (45-117); Aspartate Aminotransferase 40 U/L (15-37); BUN/Creatinine Ratio 14.7; Bilirubin, Total 0.4 mg/dL (0.2-1.0); CRP High Sensitivity 1.12 mg/dL (< 0.3); GFR African American 39 mL/min; GFR Non-African American 32 mL/min; Lactate Dehydrogenase 215 U/L (87-241); Total Protein 5.9 g/dL (6.4-8.2)
[2020-06-22] MEDS: MIDAZOLAM DRIP 50 mg/50mL 50 ML IV SCH ×2 (16:45→19:43)
[2020-06-22 16:47] LABS: Basophils # (auto) 0 10 ^3/uL (0-0.2); Basophils % (auto) 0.1 % (0.0-2.0); Eosinophils # (auto) 0 10 ^3/uL (0-0.8); Eosinophils % (auto) 0.4 % (0.0-7.0); Hematocrit 31.5 % (41.0-53.0); Hemoglobin 10.1 g/dL (13.5-17.5); Lymphocytes # (auto) 0.5 10 ^3/uL (0.4-5.4); Lymphocytes % (auto) 9.8 % (10.0-50.0); Mean Corpuscular Hemoglobin 27.7 pg (28.0-32.0); Mean Corpuscular Hgb Conc. 32.1 g/dL (32.0-36.0); Mean Corpuscular Volume 86.3 fL (80.0-100.0); Monocytes # (auto) 0.1 10 ^3/uL (0-1.3); Monocytes % (auto) 2.5 % (0.0-12.0); Neutrophils # (auto) 4.4 10 ^3/uL (1.6-8.6); Neutrophils % (auto) 87.2 % (37.0-80.0); Nucleated Red Blood Cells % 0.3 %; Platelet Count (auto) 140 10^3/uL (140-450); Red Blood Cells 3.64 10^6/uL (4.5-5.90)
[2020-06-22] MEDS ORDERED: NOREPINEPHRINE 8 MG/250ML KIT 250 ML IV ONE (16:49)
[2020-06-22 16:55] LABS: Red Cell Distribution Width 21.9 % (11.8-14.3)
[2020-06-22] MEDS ORDERED: NOREPINEPHRINE 8 MG/250ML KIT 250 ML IV SCH (17:00)
[2020-06-22] MEDS ORDERED: SODIUM CHLORIDE 0.9% 1,000 ML IV SCH (18:45)
[2020-06-22] MEDS ORDERED: LABETALOL HCL 5 MG/ML 4ML SYRINGE IV PRN (18:45)
[2020-06-22] MEDS ORDERED: hydrALAZINE HCL 20 MG/ML VL IV PRN (19:00)
[2020-06-22] MEDS ORDERED: FUROSEMIDE 40 MG/4 ML VIAL IV ONE (19:00)
[2020-06-22] MEDS ORDERED: SODIUM CHLORIDE 0.9% 1,000 ML IV ONE (19:00)
--- NOTE | 2020-06-22 19:30 | NUR ---
REPORT RECEIVED FROM FAST FOOD TEAM MEMBERAMIRA MEDINA
--- NOTE | 2020-06-22 19:50 | NUR ---
Pt being admitted to ICU CARLYNCYNTHIA admitted to ICU RM 106 via gurney on monitor technician, portable Vent, and COVID isolation precautions. Patient transfered to bed, connected to ICU monitoring and ventilator, and weighed by bedscale. Patient oriented to OMAR CORONADO, RN primary RN, unit, room, bed. Pt is intubated and sedated. Pt had a small, pasty yellow bowel movement. Per , patient has been having diarrhea and she gave him Imodium. Per , soon after the Imodium he developed the pasty stools. Pt's temperature at 91.6 rectally. Pt started on warming measures. Ant hugger applied. Bed is locked at lowest position, side rails are up. No s/s of distress noted at this time. Will continue to monitor.
--- NOTE | 2020-06-22 20:05 | NUR ---
PT TRANSPORTED TO ICU ON TRILOGY VENT WITH PREVIOUS SETTINGS. PT PLACED ON V200 VENT IN ASSIGNED ROOM. PT TRANSPORTED WITHOUT INCIDENT. FIO2 TITRATED TO 40%.
--- NOTE | 2020-06-22 22:00 | NUR ---
Wound pictures taken
--- NOTE | 2020-06-22 22:30 | NUR ---
on the phone Updated pt status and POC. Per , pt has been "in and out of hospitals since October" due to Pneumonia. also states he has been tested for COVID multiple times and the results have been negative. Admission completed with wifes history provided over the phone. Answered all questions and concerns.
[2020-06-22] MEDS: LINEZOLID 600MG/300ML 300 ML IV SCH (22:56)
[2020-06-23] VITALS (95 sets, daily range): BP systolic 82–142; BP diastolic 59–96
[2020-06-23 00:33] LABS: BUN/Creatinine Ratio 15.9; Calcium 10.3 mg/dL (8.5-10.1); Potassium 5.3 mmol/L (3.5-5.1)
--- NOTE | 2020-06-23 01:08 | NUR ---
Dr Gonsalves paged regarding high potassium and high glucose in lab no new orders received for the K+ but new orders received for high glucose. will carry out
[2020-06-23] MEDS: PIPERACILLIN-TAZOB 3.375GM 100 ML IV SCH ×4 (01:14→18:05)
[2020-06-23] MEDS ORDERED: DEXTROSE (50%) 50ML SYRG IV PRN (01:30)
--- NOTE | 2020-06-23 03:30 | NUR ---
Labs drawn and urine collected Given to Hawk COLLIER from lab
[2020-06-23] MEDS: MIDAZOLAM DRIP 50 mg/50mL 50 ML IV SCH ×6 (03:46→22:06)
[2020-06-23 03:49] LABS: Basophils # (auto) 0 10 ^3/uL (0-0.2); Basophils % (auto) 0.1 % (0.0-2.0); Eosinophils # (auto) 0 10 ^3/uL (0-0.8); Hematocrit 27.1 % (41.0-53.0); Hemoglobin 8.9 g/dL (13.5-17.5); Lymphocytes # (auto) 0.4 10 ^3/uL (0.4-5.4); Lymphocytes % (auto) 5.4 % (10.0-50.0); Mean Corpuscular Hemoglobin 28.4 pg (28.0-32.0); Mean Corpuscular Hgb Conc. 32.8 g/dL (32.0-36.0); Mean Corpuscular Volume 86.5 fL (80.0-100.0); Monocytes # (auto) 0.2 10 ^3/uL (0-1.3); Monocytes % (auto) 2.7 % (0.0-12.0); Neutrophils # (auto) 7.1 10 ^3/uL (1.6-8.6); Neutrophils % (auto) 91.8 % (37.0-80.0); Platelet Count (auto) 109 10^3/uL (140-450); Red Blood Cells 3.13 10^6/uL (4.5-5.90); White Blood Cell 7.8 10^3/uL (4.4-10.8)
[2020-06-23 03:52] LABS: Red Cell Distribution Width 21.8 % (11.8-14.3)
[2020-06-23 03:56] LABS: Urine Amorphous Crystal MOD /hpf (None Seen); Urine Bacteria FEW /hpf (None Seen); Urine Blood Negative /uL (Negative); Urine Specific Gravity 1.017 (1.001-1.035); Urine WBC 17 /hpf (0 - 3)
[2020-06-23 04:10] LABS: Albumin 1.9 g/dL (3.4-5.0); Potassium 5.4 mmol/L (3.5-5.1)
[2020-06-23 04:15] LABS: BUN/Creatinine Ratio 16.5; Bilirubin, Total 0.4 mg/dL (0.2-1.0); Total Protein 5.2 g/dL (6.4-8.2)
[2020-06-23] MEDS: ACCU-CHEK COMFORT CURVE STRIP VI SCH ×3 (05:54→18:09)
[2020-06-23] MEDS: InsuLIN REG 1unit/0.01ml Soln (100units/ml) SC SCH ×3 (05:55→18:00)
--- NOTE | 2020-06-23 06:35 | NUR ---
Notified family of COVID negative results per request.
--- NOTE | 2020-06-23 06:52 | NUR ---
Pulmonary consult/ Nephrology consult called in to PBX Sharmin
[2020-06-23] MEDS: LINEZOLID 600MG/300ML 300 ML IV SCH ×2 (09:59→22:06)
[2020-06-23] MEDS: PANTOPRAZOLE 40 MG/10 ML VIAL INJ IV SCH (09:59)
[2020-06-23] MEDS ORDERED: ENOXAPARIN SOD 40 MG/0.4 ML SYRINGE SC SCH (10:00)
[2020-06-23] MEDS ORDERED: AZITHROMYCIN 500MG/ 250ML 250 ML IV SCH (10:00)
--- NOTE | 2020-06-23 10:00 | NUR ---
VENT CHANGES DR. PÉREZ AT BEDSIDE WITH VERBAL ORDERS FOR VENT CHANGES TO DECREASE VT TO 450 ML. ABG TO FOLLOW. CHANGES MADE, PT TOLERATING. RN AT BEDSIDE AND AWARE. WILL CONT TO MONITOR.
--- NOTE | 2020-06-23 10:20 | NUR ---
Resumed care at 0715, orders reviewed and ongoing assessments being done. Being treated for multiple problems and remains intubated. Remains on Versed for sedation. At this time not able to open eyes or follow any commands. Dr. Ventura will manage ventilator. Rounded at 0948 am. Discussed condition and plan of care. Will initiate a FentaNLY gtt for pain management. Resumed Levophed gtt at 0912. SBP <90 for two cycles. Initiated per protocol and infusing via right IJ TLC.
[2020-06-23] MEDS: fentaNYL Drip 2500mCg/250mlNS 250 ML IV SCH (11:31)
--- NOTE | 2020-06-23 12:10 | NUR ---
WOUND CARE NOTE: Wound care in to see patient due to multiple skin integrity issue that are noted present on admission. Bedside nurse took photograph of patient's wounds upon admission for reference. Patient is 64 years old male with admitting diagnosis of ARS, Right Pneumonia. Patient is resting in ICU bed in Rm. 105. Patient is intubated,sedated and mechanically ventilated. Patient appears to be in no pain using Browning Zhao Faces Pain Scale. His Rod score is 12. Skin assessment done with the assistance of patient's nurse, AMIRA Smith. Patient noted with left arm and lt lower leg and foot. Multi open partial thickness skin tear noted on patient's Rt elbow (0.8x0.8cm), L knee (1.2x1cm and 1.5x1.5cm) and L dorsal foot (1.5x2cm). Skin tears are pink/red, no drainage/odor noted. Cleansed skin tears with NS,patted dry with gauze, applied Thera honey gel and covered with Opti foam gentle dressing. Patient's perineum at posterior scrotal base noted with multi small, intact, pink scar tissue, no open wound noted. Patient is receiving BID/PRN cleaning and application of Barrier cream to sacral, buttocks and perineum with preventative Opti foam sacral dressing. Patient's L heel noted with dark red non-blanchable redness (Stage 1 pressure injury). Staff are elevating patient's edematous extremities on pillows. Repositioned patient for comfort facing his Rt. side, redistributed pressure points with pillows. Patient tolerated well. AMIRA Smith at bedside. RECOMMENDATION: Nursing to continue with BID/PRN cleaning and application of Barrier cream to sacral, buttocks as preventative, Q3Days/PRN dressing change t multi skin tear per MD order, Dietary consult, frequent turning and repositioning schedule as condition permits, redistribute pressure points with pillows, elevate heels and edematous extremities on pillows, continue monitoring by wound care while patient is hospitalized. Addendum: 06/23/20 at 1524 by Ene Louie RN Amended: Links added.
[2020-06-23] MEDS ORDERED: TACROLIMUS 1 MG CAP NG ONE (12:45)
[2020-06-23 13:33] LABS: Creatinine, Urine 101 mg/dL (30.0-125.0); Sodium Urine 18 mmol/L (40-220)
--- NOTE | 2020-06-23 14:25 | NUR ---
TITRATED FIO2 TO 30%, PT TOLERATING CHANGES SPO2 97%
[2020-06-23] MEDS: SODIUM BICARBONATE 50ML VIAL 50 ML in SOD CHL 0.45% 1,000 ML IV SCH (14:29)
--- NOTE | 2020-06-23 15:04 | NUR ---
Dr. Ilya Casey resumed case and rounded at 1230 pm. Discussed case and plan of care. Ordered a Renal consult. Dr. Pandey in unit and Dr. Ilya Casey spoke with him. New orders noted and carried out. Dr. Ventura, pathologist rounded at 0948. Ordered CT scan of the chest. Taken to radiologist for scan at 1442 pm. Escorted by Adilene product assembler. Returned to unit at 1504, arrived without incident.
--- NOTE | 2020-06-23 15:05 | NUR ---
RT Transport Note: Patient transported to RADIOLOGY/CT with AMIRA ESPAÑA. Patient transported on manager monitoring and transport vent connected to O2 tank with alarms set and audible. Patient returned to ICU room placed back on ventilator with previous settings. Transport completed without incident.
[2020-06-23] MEDS: AZITHROMYCIN 500MG/ 250ML 250 ML IV SCH (15:15)
--- NOTE | 2020-06-23 18:31 | NUR ---
No remarkable changes. Remains on Levophed gtt for hemodynamic stability. Josselin Rush NP rounded for Dr. Roberts (highway maintenance crew worker). Continue current plan of care.
--- NOTE | 2020-06-23 20:00 | NUR ---
OPEN ASSUMED CARE OF MALE PT ORALLY INTUBATED. PT SEDATED ON VERSED GTT 15 MG/HR AND FENTANYL GTT 100 MCG/HR. PUPILS EQUAL AND REACTIVE. COUGH AND GAG POSITIVE. OTHERWISE NON RESPONSIVE. PT SR ON RELIABILITY ENGINEER. OCCASIONAL PVC'S OBSERVED. NGT TO L. NARE CLAMPED. PLACEMENT VERIFIED. R. IJ TLC IN PLACE WITH CDI DRESSING. ALL PORTS PATENT. PT WITH PITTING EDEMA TO YESSICA HANDS. L. FOREARM WITH RESTRICTED EXTREMITY BAND IN PLACE. PT WITH OLD AV FISTULA. NO BRUIT OR THRILL TO L. FOREARM. MOORE TO GRAVITY DRAINING CLEAR YELLOW URINE. PT WITH RIK ANAL EXCORIATION OBSERVED. Z GAURD BARRIER OINTMENT IN PLACE. OPTIFOAM GENTLE SACRAL DRESSING IN PLACE PREVENTATIVE. YESSICA SCD'S IN PLACE. SKIN TEAR TO R. ELBOW WITH CDI NON ADHERENT DRESSING IN PLACE. TOP OF L. FOOT WITH SKIN TEAR COVERED WITH CDI NON ADHERENT FOAM DRESSING. L KNEE WITH SKIN TEAR X 2 COVERED WITH CDI NON ADHERENT FOAM DRESSING. YESSICA SCD'S IN PLACE. NO INDICATION OF PAIN OBSERVED. PT REPOSITIONED WITH PILLOWS USED TO OFFLOAD BONY PROMINENCES YESSICA HEELS AND YESSICA ARMS. ORAL CARE PROVIDED. BEDSIDE MONITOR ALARMS ON AND AUDIBLE. BED IN LOWEST LOCKED POSITION. SIDE RAILS UP. HOB ELEVATED 30 DEGREES. PT IN FULL VIEW OF RN STATION. WILL CONTINUE TO MONITOR.
--- NOTE | 2020-06-23 20:25 | NUR ---
LOW TEMP PT WITH RECTAL TEMP 95.2. HEAT LIGHT APPLIED. BARE HUGGAR WARMING BLANKET APPLIED.
--- NOTE | 2020-06-23 21:18 | NUR ---
SEDATION VACATION INAPPROPRIATE. ADDITIONAL SEDATION WAS ORDERED BY FOR COMPLIANCE WITH VENTILATOR. Addendum: 06/23/20 at 2120 by Elizabeth Wilkerson RN Amended: Links added.
[2020-06-23] MEDS: TACROLIMUS 1 MG CAP NG SCH (22:06)
[2020-06-24] VITALS (104 sets, daily range): BP systolic 84–160; BP diastolic 59–86
[2020-06-24] MEDS ORDERED: NOREPINEPHRINE 8 MG/250ML KIT 250 ML IV ONE (00:16)
[2020-06-24] MEDS: PIPERACILLIN-TAZOB 3.375GM 100 ML IV SCH ×4 (00:26→17:39)
[2020-06-24] MEDS: SODIUM BICARBONATE 50ML VIAL 50 ML in SOD CHL 0.45% 1,000 ML IV SCH ×2 (00:26→10:27)
--- NOTE | 2020-06-24 01:22 | NUR ---
ROUNDED: COVERING ASSIGNED RN FOR BREAK. EVEN AND UNLABORED BREATHING, NO SIGNS OF DISTRESS. VSS OTHERWISE, NO PAIN BEHAVIORS IDENTIFIED. WILL ENDORSE CARE BACK TO ASSIGNED RN
[2020-06-24] MEDS: MIDAZOLAM DRIP 50 mg/50mL 50 ML IV SCH ×5 (02:12→22:30)
--- NOTE | 2020-06-24 02:45 | NUR ---
GI/BED BATH PT HAD LARGE PASTY YELLOW STOOL. PT GIVEN FULL BED BATH WITH LINEN CHANGE.
[2020-06-24 04:52] LABS: Potassium 4.8 mmol/L (3.5-5.1)
[2020-06-24 04:53] LABS: Albumin 1.5 g/dL (3.4-5.0); Calcium 9.7 mg/dL (8.5-10.1)
[2020-06-24 04:56] LABS: Bilirubin, Total 0.3 mg/dL (0.2-1.0); Total Protein 4.7 g/dL (6.4-8.2)
[2020-06-24] MEDS: InsuLIN REG 1unit/0.01ml Soln (100units/ml) SC SCH ×4 (05:53→17:40)
[2020-06-24] MEDS: ACCU-CHEK COMFORT CURVE STRIP VI SCH ×4 (05:53→17:40)
--- NOTE | 2020-06-24 06:01 | NUR ---
LOW BLOOD SUGAR THIS AM BLOOD SUGAR 45 MG/DL. DEXTROSE 50% GIVEN PER PROTOCOL. SEE EMAR.
--- NOTE | 2020-06-24 06:50 | NUR ---
RE-ASSESS BLOOD SUGAR ACCU CHECK REPEAT 99 MG/DL
--- NOTE | 2020-06-24 07:40 | NUR ---
DR. Ilya LINCOLN Provider/Hospitalist at bedside. GAVE UPDATE ON PT. NEW ORDERS RECEIVED.
--- NOTE | 2020-06-24 07:40 | NUR ---
ASSESS- PT. LYING IN BED ON VENT SIZE# 8.0 ET, AC-16, TV-450, PEEP-5, FIO2-30%. LUNGS CLEAR YESSICA. INSPIRATORY AND EXPIRATORY, DIMINISHED BASES YESSICA. PT. HAS HYPOACTIVE GAG/COUGH REFLEX. PUPILS 1 AND SLUGGISH YESSICA. ON VERSED GTT. AT 15 MG./HR. AND FENTANYL GTT. AT 100 MCG. RESPONDS TO DEEP PAINFUL/TACTILE STIMULI. NGT LT. NARE INTACT, CLAMPED, NPO STATUS. ABD. SOFT, FLAT. BOWEL SOUNDS ALL FOUR QUADRANTS. F/C TO GRAVITY WITH CLEAR YELLOW URINE. TLC RT. IJ INTACT. NO VASOPRESSORS. SBP ONE TEENS-120'S. RADIAL PULSES WEAK, PALPABLE YESSICA. DORSALIS PEDAL PULSES WEAK PALPABLE YESSICA. 2 PLUS EDEMA ARMS AND HANDS YESSICA., LT. ARM MORE SWOLLEN THAN RT. ARM. 1 PLUS EDEMA YESSICA. FT. SCD RT. LEG, REMOVED FROM LT. LEG, PT. HAS DVT TO LT. FEMORAL. LT. WITH SKIN TEAR WITH OPTIFOAM DSG. D/I. SKIN TEAR TO RT. ELBOW WITH OPTIFOAM DSG. D/I. LT. KNEE WITH SKIN TEAR WITH OPTIFOAM DSG. D/I. RECTAL PROBE IN PLACE, TEMP 98.4 NOW, BEAR HUGGER OFF.
[2020-06-24] MEDS: AZITHROMYCIN 500MG/ 250ML 250 ML IV SCH (07:59)
--- NOTE | 2020-06-24 09:08 | NUR ---
TECH AT BS FOR US LT. ARM.
--- NOTE | 2020-06-24 09:30 | NUR ---
RECTAL TEMP DECREASED TO 97.7. TURNED ON BEAR HUGGER ON HIGH TEMP WITH BLANKETS COVERING PT. MONITORING TEMP.
[2020-06-24] MEDS: LINEZOLID 600MG/300ML 300 ML IV SCH ×2 (09:33→22:43)
[2020-06-24] MEDS: TACROLIMUS 1 MG CAP NG SCH ×2 (09:33→22:43)
[2020-06-24] MEDS: PANTOPRAZOLE 40 MG/10 ML VIAL INJ IV SCH (09:33)
[2020-06-24] MEDS: prednisoLONE 15 MG/5 ML ORAL UD GT SCH (09:34)
[2020-06-24] MEDS: fentaNYL Drip 2500mCg/250mlNS 250 ML IV SCH (09:36)
[2020-06-24] MEDS ORDERED: ENOXAPARIN SOD 60 MG/0.6 ML SYRINGE SC SCH (10:00)
--- NOTE | 2020-06-24 10:00 | NUR ---
PT. HAD LG. LOOSE YELLOW STOOL. RIK CARE DONE AND LINENS CHANGED. APPLIED Z-GUARD CREAM TO BUTTOCKS YESSICA. OPTIFOAM DSG. TO SACRUM PREVENTATIVE.
--- NOTE | 2020-06-24 11:20 | NUR ---
Nutrition Assessment/consult Note please see attached link for complete assessment Est Energy needs IBW 78 [id number] kcals (25-30 kcal/kgIBW), Est Protein needs: 78-85 gms/day (1.0-1.1 gm/kgIBW). Will continue to monitor and reassess prn. Rec: EN support with Glucerna @ 75 ml/hr per MD approval Addendum: 06/24/20 at [address] Amended: Links added.
[2020-06-24] MEDS: SODIUM BICARBONATE 50ML VIAL 50 ML in D5W/SOD CHL 0.45% 1,000 ML IV SCH ×2 (12:00→22:42)
--- NOTE | 2020-06-24 12:50 | NUR ---
Called/paged Dr. CLEMONS called re:. CONNECTED TO DR. LINCOLN'S CELL PHONE. Continue care. NEW ORDER RECEIVED FOR TF PER DIETARY EVALUATION'S RECOMMENDATION.
--- NOTE | 2020-06-24 14:00 | NUR ---
TEMP INCREASED TO 98.6 RECTALLY. TURNED OFF BEAR HUGGER. MONITORING TEMP.
--- NOTE | 2020-06-24 14:05 | NUR ---
NGT placement verified by aspiration of stomach contents, residual check, or air auscultation. Tube feeding started per MD order. STARTED GLUCERNA AT 10 CC/HR. WITH GOAL RATE OF 75 CC/HR. NO EMESIS.
[2020-06-24] MEDS: Glucerna 1.2 Cal 1Liter BOTTLE GT SCH (14:49)
--- NOTE | 2020-06-24 19:30 | NUR ---
Opening Shift note Received report from day shift RN Mary. Pt is intubated and sedated. No s/s of distress noted at this time. Pt had a small, yellow bowel movement. Winnie care provided, partial linen changed. Bed is locked at lowest position, side rails are up. No s/s of distress noted at this time. Will continue to monitor.
[2020-06-25] VITALS (104 sets, daily range): BP systolic 135–198; BP diastolic 71–99
[2020-06-25] MEDS: PIPERACILLIN-TAZOB 3.375GM 100 ML IV SCH ×2 (00:38→05:28)
[2020-06-25] MEDS: ACCU-CHEK COMFORT CURVE STRIP VI SCH ×4 (00:44→17:38)
[2020-06-25] MEDS: InsuLIN REG 1unit/0.01ml Soln (100units/ml) SC SCH ×4 (00:45→17:40)
--- NOTE | 2020-06-25 01:30 | NUR ---
Temperature Pt temperature trending down slowly. Currently at 97.0 with warm blankets. Ant ga applied. Will continue to monitor.
--- NOTE | 2020-06-25 02:30 | NUR ---
CHG Bath given complete linen change. Pt tolerated well.
--- NOTE | 2020-06-25 03:25 | NUR ---
Wound pictures taken Left knee skin tear x4
--- NOTE | 2020-06-25 04:00 | NUR ---
Sedation vacation Have been titrating down, no response to painful stimuli. Pt in deep sedation. Versed turned off at this time. Will continue to monitor for any s/s of distress and responsiveness.
[2020-06-25 04:17] LABS: Basophils # (auto) 0 10 ^3/uL (0-0.2); Basophils % (auto) 0.2 % (0.0-2.0); Eosinophils # (auto) 0.1 10 ^3/uL (0-0.8); Eosinophils % (auto) 0.8 % (0.0-7.0); Lymphocytes # (auto) 1.3 10 ^3/uL (0.4-5.4); Monocytes # (auto) 0.4 10 ^3/uL (0-1.3)
[2020-06-25 04:19] LABS: Hematocrit 18.5 % (41.0-53.0); Lymphocytes % (auto) 16.4 % (10.0-50.0); Mean Corpuscular Hemoglobin 28.6 pg (28.0-32.0); Mean Corpuscular Volume 86.6 fL (80.0-100.0); Monocytes % (auto) 5.7 % (0.0-12.0); Neutrophils # (auto) 6.1 10 ^3/uL (1.6-8.6); Neutrophils % (auto) 76.9 % (37.0-80.0); Platelet Count (auto) 75 10^3/uL (140-450); Red Blood Cells 2.13 10^6/uL (4.5-5.90); White Blood Cell 7.9 10^3/uL (4.4-10.8)
[2020-06-25 04:32] LABS: Albumin 1.5 g/dL (3.4-5.0); Calcium 9.6 mg/dL (8.5-10.1); Potassium 4.5 mmol/L (3.5-5.1)
[2020-06-25 04:34] LABS: Red Cell Distribution Width 21.1 % (11.8-14.3)
[2020-06-25 04:35] LABS: BUN/Creatinine Ratio 16.2; Bilirubin, Total 0.3 mg/dL (0.2-1.0); Hemoglobin 6.1 g/dL (13.5-17.5); Total Protein 4.3 g/dL (6.4-8.2)
--- NOTE | 2020-06-25 04:41 | NUR ---
Paged Hospitalist regarding critical hemoglobin of 6.1
--- NOTE | 2020-06-25 05:00 | NUR ---
Sedation Versed continues to be off, no response from the patient. no s/s of distress at this time. will continue to monitor.
--- NOTE | 2020-06-25 05:19 | NUR ---
Paged Hospitalist regarding critical hemoglobin of 6.1 second attempt
--- NOTE | 2020-06-25 05:22 | NUR ---
Dr Gonsalves called back New orders received, will carry out
--- NOTE | 2020-06-25 06:00 | NUR ---
Sedation Versed continues to be off, no response from the patient. no s/s of distress at this time. will continue to monitor.
--- NOTE | 2020-06-25 06:15 | NUR ---
Labs drawn and sent to lab per MD orders
[2020-06-25 06:45] LABS: Basophils # (auto) 0 10 ^3/uL (0-0.2); Eosinophils # (auto) 0.1 10 ^3/uL (0-0.8); Lymphocytes # (auto) 1.3 10 ^3/uL (0.4-5.4); Mean Corpuscular Volume 86.5 fL (80.0-100.0); Monocytes # (auto) 0.4 10 ^3/uL (0-1.3); Neutrophils # (auto) 5.8 10 ^3/uL (1.6-8.6); White Blood Cell 7.6 10^3/uL (4.4-10.8)
[2020-06-25 06:48] LABS: Basophils % (auto) 0.2 % (0.0-2.0); Eosinophils % (auto) 1.1 % (0.0-7.0); Hematocrit 19.2 % (41.0-53.0); Lymphocytes % (auto) 17.4 % (10.0-50.0); Mean Corpuscular Hemoglobin 28.7 pg (28.0-32.0); Mean Corpuscular Hgb Conc. 33.2 g/dL (32.0-36.0); Monocytes % (auto) 5.1 % (0.0-12.0); Neutrophils % (auto) 76.2 % (37.0-80.0); Platelet Count (auto) 80 10^3/uL (140-450); Red Blood Cells 2.22 10^6/uL (4.5-5.90)
[2020-06-25 06:56] LABS: Hemoglobin 6.4 g/dL (13.5-17.5); Red Cell Distribution Width 21.4 % (11.8-14.3)
--- NOTE | 2020-06-25 07:35 | NUR ---
ASSESS- PT. LYING IN BED ON VENT SIZE # 8.0 ET, 24 AT THE LIP, AC-16, TV-450, PEEP-5, FIO2-30%. LUNGS CLEAR YESSICA. INSPIRATORY AND EXPIRATORY, DIMINISHED BASES YESSICA. PT. HAS HYPOACTIVE GAG/COUGH REFLEX. PUPILS 2 AND SLUGGISH YESSICA. VERSED GTT. OFF. FENTANYL GTT. AT 100 MCG. TLC RT. IJ INTACT. NGT LT. NARE INTACT WITH GLUCERNA AT 50 CC/HR. ABD. SOFT, FLAT. BOWEL SOUNDS ALL FOUR QUADRANTS. F/C TO GRAVITY WITH CLEAR YELLOW URINE. RECTAL PROBE IN PLACE. RADIAL PULSES WEAK, PALPABLE YESSICA. DORSALIS PEDAL PULSES WEAK, PALPABLE YESSICA. 3 PLUS EDEMA ARMS YESSICA. 2 PLUS EDEMA ANKLES YESSICA. SCD RT. LEG. SKIN TEAR RT. ELBOW WITH OPTIFOAM DSG. D/I, LT. KNEE WITH SKIN TEAR WITH OPTIFOAM DSG. D/I. RT. ELBOW WITH SKIN TEAR WITH OPTIFOAM DSG. D/I. LT. FT. WITH SKIN TEAR WITH OPTIFOAM DSG. D/I.
--- NOTE | 2020-06-25 08:11 | NUR ---
DR. Ilya LINCOLN Provider/Hospitalist at bedside. GAVE UPDATE ON PT. NEW ORDERS RECEIVED.
[2020-06-25] MEDS: SODIUM BICARBONATE 50ML VIAL 50 ML in D5W/SOD CHL 0.45% 1,000 ML IV SCH ×2 (08:16→17:59)
[2020-06-25] MEDS: MIDAZOLAM DRIP 50 mg/50mL 50 ML IV SCH ×2 (09:45→11:50)
--- NOTE | 2020-06-25 09:55 | NUR ---
GAVE CONSENT VIA PHONE WITH 2 RN'S FOR BLOOD TRANSFUSION TODAY THAT DR. Ilya LINCOLN ORDERED. H&H 6.4 AND 19.2 THIS AM. NO SIGNS OF BLEEDING. STARTED 1 UNIT OF PRBC'S VIA TLC RT. IJ ORDERED.
[2020-06-25] MEDS ORDERED: ENOXAPARIN SOD 60 MG/0.6 ML SYRINGE SC SCH (10:00)
[2020-06-25] MEDS: PANTOPRAZOLE 40 MG/10 ML VIAL INJ IV SCH (10:03)
[2020-06-25] MEDS: TACROLIMUS 1 MG CAP NG SCH ×2 (10:04→21:36)
[2020-06-25] MEDS: cefTRIAXone 1GM/50ML D5W 50 ML IV SCH (10:04)
[2020-06-25] MEDS: prednisoLONE 15 MG/5 ML ORAL UD GT SCH (10:04)
[2020-06-25] MEDS: fentaNYL Drip 2500mCg/250mlNS 250 ML IV SCH (10:07)
--- NOTE | 2020-06-25 10:10 | NUR ---
AUSCULTATED GOOD PLACEMENT WITH NGT. NO EMESIS. BOWEL SOUNDS ALL FOUR QUADRANTS. CHECKED RESIDUAL FROM NGT NONE. INCREASED GLUCERNA TF FROM 50 CC/HR. TO 60 CC/HR. WITH GOAL RATE OF 75 CC/HR.
--- NOTE | 2020-06-25 12:00 | NUR ---
PT. HAD LG. YELLOW LOOSE STOOL. RIK CARE DONE AND GOWN AND LINENS CHANGED. APPLIED Z GUARD CREAM TO SACRUM AND BUTTOCKS YESSICA. PT. TOLERATED WELL.
--- NOTE | 2020-06-25 12:06 | NUR ---
1 UNIT OF PRBC'S COMPLETED. NO ADVERSE REACTION OR SIGNS OF FLUID OVERLOAD.
--- NOTE | 2020-06-25 12:30 | NUR ---
DR. JEFFERSON Provider/Hospitalist at bedside.
[2020-06-25] MEDS: Glucerna 1.2 Cal 1Liter BOTTLE GT SCH (14:05)
--- NOTE | 2020-06-25 16:50 | NUR ---
CHECKED RESIDUAL FROM NGT, 5CC. INCREASED GLUCERNA TF TO 70 CC/HR. WITH GOAL RATE OF 75 CC/HR.
--- NOTE | 2020-06-25 19:35 | NUR ---
Opening Shift note Received report from day shift AMIRA Hernandez. Pt is intubated and sedated. No s/s of distress noted at this time. Pt had a small, yellow bowel movement. Winnie care provided, partial linen changed. Bed is locked at lowest position, side rails are up. No s/s of distress noted at this time. Will continue to monitor. Addendum: 06/26/20 at 0332 by OMAR CORONADO RN RN Skin tear to the medial sacrum. Two skin tears to right buttock. Wounds cleansed and optifoam applied.
--- NOTE | 2020-06-25 20:00 | NUR ---
Residual No residual, tube feeding increased to goal rate of 75ml/hr
--- NOTE | 2020-06-25 20:18 | NUR ---
Hospitalist paged Dr. Gonsalves pages for elevated blood pressure. Pt has a PRN hydralazine. Medication not stocked in ICU [facility] and doctors were told not to order the medication.
--- NOTE | 2020-06-25 20:30 | NUR ---
Wound Pictures pictures taken of sacrum and right buttock. photographic wound documentation sheets filled out and placed in designated envelope. Wounds cleansed, new optifoam provided.
--- NOTE | 2020-06-25 21:20 | NUR ---
Hospitalist paged second attempt Dr Gonsalves paged regarding elevated blood pressure.
--- NOTE | 2020-06-25 21:25 | NUR ---
Dr Gonsalves call back Discussed pt status and POC. Notified MD of elevated blood pressure and hydralazine PRN order being on back order. No new orders received.
[2020-06-25 23:08] LABS: Magnesium 1.9 mg/dL (1.6-2.6); Potassium 4.9 mmol/L (3.5-5.1)
--- NOTE | 2020-06-25 23:45 | NUR ---
Central Line Dressing Change Central line dressing soiled. Dressing change done with a sterile technique. Bio patch and clean dressing applied. Pt tolerated well. Will continue to monitor.
[2020-06-26] VITALS (98 sets, daily range): BP systolic 135–188; BP diastolic 66–117
--- NOTE | 2020-06-26 | NUR ---
Residual Tube feeding running at goal rate of 75ml/hr. No residual, will continue to monitor.
[2020-06-26] MEDS: ACCU-CHEK COMFORT CURVE STRIP VI SCH ×4 (00:16→18:10)
[2020-06-26] MEDS: InsuLIN REG 1unit/0.01ml Soln (100units/ml) SC SCH ×4 (00:21→18:15)
[2020-06-26] MEDS: MIDAZOLAM DRIP 50 mg/50mL 50 ML IV SCH ×5 (00:45→20:45)
[2020-06-26 04:07] LABS: Basophils # (auto) 0 10 ^3/uL (0-0.2); Basophils % (auto) 0.2 % (0.0-2.0); Eosinophils # (auto) 0.1 10 ^3/uL (0-0.8); Eosinophils % (auto) 0.6 % (0.0-7.0); Hematocrit 24.9 % (41.0-53.0); Hemoglobin 8.3 g/dL (13.5-17.5); Lymphocytes # (auto) 1.3 10 ^3/uL (0.4-5.4); Lymphocytes % (auto) 14.5 % (10.0-50.0); Mean Corpuscular Hemoglobin 28.8 pg (28.0-32.0); Mean Corpuscular Hgb Conc. 33.5 g/dL (32.0-36.0); Mean Corpuscular Volume 86.1 fL (80.0-100.0); Monocytes # (auto) 0.4 10 ^3/uL (0-1.3); Monocytes % (auto) 4.2 % (0.0-12.0); Neutrophils # (auto) 7.4 10 ^3/uL (1.6-8.6); Neutrophils % (auto) 80.5 % (37.0-80.0); Platelet Count (auto) 80 10^3/uL (140-450); Red Blood Cells 2.89 10^6/uL (4.5-5.90); Red Cell Distribution Width 19.7 % (11.8-14.3); White Blood Cell 9.1 10^3/uL (4.4-10.8)
[2020-06-26 04:19] LABS: Potassium 4.6 mmol/L (3.5-5.1)
[2020-06-26] MEDS: SODIUM BICARBONATE 50ML VIAL 50 ML in D5W/SOD CHL 0.45% 1,000 ML IV SCH (04:25)
[2020-06-26 04:39] LABS: Albumin 1.7 g/dL (3.4-5.0); BUN/Creatinine Ratio 16.7; Bilirubin, Total 0.3 mg/dL (0.2-1.0); Calcium 9.8 mg/dL (8.5-10.1)
[2020-06-26] MEDS: cefTRIAXone 1GM/50ML D5W 50 ML IV SCH (09:14)
[2020-06-26] MEDS ORDERED: cloNIDine HCL 0.1 MG TAB NG PRN (09:30)
[2020-06-26] MEDS: fentaNYL Drip 2500mCg/250mlNS 250 ML IV SCH (10:00)
[2020-06-26] MEDS: TACROLIMUS 1 MG CAP NG SCH ×2 (10:18→22:44)
[2020-06-26] MEDS: prednisoLONE 15 MG/5 ML ORAL UD GT SCH (10:18)
[2020-06-26] MEDS: PANTOPRAZOLE 40 MG/10 ML VIAL INJ IV SCH (10:18)
[2020-06-26] MEDS: ISOSORBIDE MONONITRATE ER 60 MG TAB PO SCH (10:19)
[2020-06-26] MEDS: amLODIPine BESYLATE 5 MG TAB NG SCH (10:19)
--- NOTE | 2020-06-26 10:46 | NUR ---
Nutrition Followup Note Pt wt is 19.3 kg Pt was in closed room with curtain drawn when rounded this morning. Pt is currently NPO with EN nutrition support running at 50ml/hr per RN doc. Est Energy needs IBW 78 [id number] kcals (25-30 kcal/kgIBW), Est Protein needs: 78-85 gms/day (1.0-1.1 gm/kgIBW). Will continue to monitor and reassess prn. LABS: BUN 30 H, CREAT 1.8 H, GFR 40 L, GLUC 205 H, ALB 1.7 L GI: Pt had 3 BM on 06/26 BS: 11 high risk. Refer to wound assessment report for full details. PES: Altered nutrition related lab values r.t current hronic medical condition aeb elev RFT severe hypoalb Increased nutrient needs r/t chronic medical condition aeb pt`s underweight with hypoalb and intubated NPO Comments 1) consider EN feeds with Glucerna @ 75 ml/hr per MD approval 2) advance diet as medically feasible 3) refer to CDE on DC 4) continue current plan of care Rec: EN support with Glucerna @ 75 ml/hr per MD approval
--- NOTE | 2020-06-26 13:15 | NUR ---
DR. GARCIA HERE TO SEE PATIENT. SEE MD NOTES AND EMR FOR ANY NEW ORDERS.
[2020-06-26] MEDS: hydrALAZINE HCL 25 MG TAB NG SCH ×2 (14:00→22:44)
--- NOTE | 2020-06-26 14:00 | NUR ---
WOUND CARE NOTE: WOUND CARE IN TO SEE PATIENT DUE TO NEW SKIN INTEGRITY CONCERN. PER PHOTOGRAPHS AND BEDSIDE NURSE, PATIENT'S SACRUM HAS BEGUN TO DEVELOP SKIN TEARS. PATIENT ALREADY RECEIVING BID ZGUARD BARRIER CREAM AND OPTIFOAM TO SACRUM. WILL CONTINUE TO MONITOR PATIENT'S SKIN INTEGRITY.
--- NOTE | 2020-06-26 20:00 | NUR ---
OPEN NOTES ASSUMED CARE OF PATIENT. PATIENT IS NOT ON ANY SEDATION NOW. PATIENT HAS COUGH AND GAG, PUPILS BOTH SLUGGISHLY REACTIVE TO LIGHT. NO EYE OPENING OR LIMB MOVEMENT NOTED. LOWER LIP SWOLLEN. PERIORBITAL EDEMA NOTED DUE TO POSITIONING. INTUBATED AND VENTILATED, LUNG SOUNDS CLEAR ALL THROUGHOUT, SATS 99-100%. WITH LARGE AMOUNT OF ORAL SECRETIONS SUCTIONED. VS STABLE.AFEBRILE. LEFT NARES NGT PLACEMENT CHECKED, NO ASPIRATE NOTED. TUBE FEEDING RE-STARTED AT 20ML/HR MULTIPLE SKIN ISSUES NOTED FULL ASSESSMENT DONE -REFER INTERVENTIONS. WILL CONTINUE TO MONITOR
--- NOTE | 2020-06-26 20:20 | NUR ---
ELIMINATION PATIENT HAD A LARGE BM - LOOSE BROWNISH STOOL CLEANED. OPTIFOAM CHANGED
--- NOTE | 2020-06-26 21:00 | NUR ---
SEDATION OFF IN DAY SHIFT Addendum: 06/26/20 at 2344 by Billie Robertson RN Amended: Links added.
--- NOTE | 2020-06-26 23:24 | NUR ---
FLEXI SEAL RECTAL TUBE INSERTED PATIENT HAD 2 LARGE LOOSE WATERY BROWNISH STOOL SINCE THE START OF SHIFT PATIENT HAD MULTIPLE SKIN TEARS AT THE BUTTOCKS ,SACRAL AND PERIANAL AREA RECTAL TUBE INSERTED TO PREVENT NEW SKIN BREAKDOWN Z GUARD APPLIED AND OPTIFOAM CHANGED
[2020-06-27] VITALS (68 sets, daily range): BP systolic 118–176; BP diastolic 77–107
--- NOTE | 2020-06-27 | NUR ---
TUBE FEEDING HELD PATIENT FOR POSSIBLE CPAP TRIAL IN AM ONCE FULLY AWAKE PATIENT HAVING DIARRHEA
[2020-06-27] MEDS: ACCU-CHEK COMFORT CURVE STRIP VI SCH ×4 (00:38→17:48)
[2020-06-27] MEDS: InsuLIN REG 1unit/0.01ml Soln (100units/ml) SC SCH ×4 (00:41→17:55)
--- NOTE | 2020-06-27 00:42 | NUR ---
NEURO Patient is grimacing to stimuli Cough and gag still noted Rectal temp 97.0F - covered with warm blanket
[2020-06-27] MEDS: MIDAZOLAM DRIP 50 mg/50mL 50 ML IV SCH ×4 (01:36→16:45)
[2020-06-27 03:47] LABS: Basophils # (auto) 0 10 ^3/uL (0-0.2); Basophils % (auto) 0.2 % (0.0-2.0); Eosinophils # (auto) 0.1 10 ^3/uL (0-0.8); Eosinophils % (auto) 1.5 % (0.0-7.0); Hematocrit 25.7 % (41.0-53.0); Hemoglobin 8.5 g/dL (13.5-17.5); Lymphocytes # (auto) 1.6 10 ^3/uL (0.4-5.4); Lymphocytes % (auto) 18.9 % (10.0-50.0); Mean Corpuscular Hemoglobin 28.6 pg (28.0-32.0); Mean Corpuscular Hgb Conc. 33.1 g/dL (32.0-36.0); Mean Corpuscular Volume 86.2 fL (80.0-100.0); Monocytes # (auto) 0.4 10 ^3/uL (0-1.3); Monocytes % (auto) 4.8 % (0.0-12.0); Neutrophils # (auto) 6.4 10 ^3/uL (1.6-8.6); Neutrophils % (auto) 74.6 % (37.0-80.0); Nucleated Red Blood Cells % 0.1 %; Platelet Count (auto) 73 10^3/uL (140-450); Red Blood Cells 2.98 10^6/uL (4.5-5.90); White Blood Cell 8.6 10^3/uL (4.4-10.8)
[2020-06-27 04:10] LABS: Potassium 3.9 mmol/L (3.5-5.1)
[2020-06-27 04:18] LABS: Albumin 1.6 g/dL (3.4-5.0); BUN/Creatinine Ratio 17.7; Bilirubin, Total 0.4 mg/dL (0.2-1.0); Calcium 9.8 mg/dL (8.5-10.1); Total Protein 5.1 g/dL (6.4-8.2)
--- NOTE | 2020-06-27 05:00 | NUR ---
ELIMINATION STOOL LEAKING OUT EVEN WITH FLEXI SEAL TUBE CLEANED, Z GUARD APPLIED OPTIFOAM CHANGED REPOSITIONED
[2020-06-27] MEDS: hydrALAZINE HCL 25 MG TAB NG SCH ×2 (06:33→15:50)
--- NOTE | 2020-06-27 07:50 | NUR ---
AM ASSESSMENT COMPLETED REMAINS INTUBATED OFF SEDATION, PUPILS EQUAL , ROUND & REACTIVE TO LIGHT, GOOD COUGH & GAG, DROOLING A LOT OF CLEAR SALIVA. ORAL CARE PROVIDED. LS CTA IN ALL HUNG, NGT ON LT NARE IN PLACE. PLACEMENT VERIFIED BY INJECTING AIR INTO STOMACH.BOWEL SOUNDS NORMOACTIVE PT HAVING DIARRHEA HAS A RT, COLLECTING LIQUID BROWN STOOL. SR NO ECTOPY, VSS, AFEBRILE PT HAS A RECTAL PROVE MONITORING TEMPERATURE, PT HAS HEATING LAMP ON AND BLANKETS ON HE HAD LOW TEMP. EARLIER, NOW NORMOTENSIVE.PT HAS MULTIPLE SKIN BREAKDOWN, ALL DRESSINGS ARE CDI AND IN PLACE. ALL WOUNDS WERE ASSESSED , REFER TO SKIN FLOW SHEET. REPOSITION PT FOR COMFORT. PT ON Q 2 HOUR TURN SCHEDULE. ALL MONITOR ALARMS VERIFIED AT THIS TIME.
--- NOTE | 2020-06-27 08:32 | NUR ---
EDUCATION/ POC/ PSYCHOSOCIAL PT'S CALLED TO GET AN UPDATE ON PT'S CONDITION. UPDATED PT'S ON PT'S CONDITION. DISCUSSED PT'S LABS, LOW PLT'S, ANTICOAGULATION BEING HELD AT THIS TIME AND THAT IT WILL BE DISCUSSED WITH PRIMARY MD. DISCUSSED PNA, CONTAMINATION CONSULTANT IMPRESSION FROM YESTERDAY'S NOTES. I RECOMMENDED FOR HER TO CALL BACK LATER TO GET AN UPDATE ONCE DR.H LINCOLN ROUNDS BACK, ONCE TODAY'S CHEST X-RAY REPORT IS IN TO COMPARE TO YESTERDAY'S CHEST X-RAY. I INFORM HER THAT CPAP TRIAL CANNOT TAKE EFFECT YET UNTIL PT WAKES UP. PT STILL NOT WAKING UP AND THAT WHEN A PT HAS KIDNEY DISEASE AND HER HAS HAD A KIDNEY TRANSPLANT IT CAN TAKE HIM UP TO 3- 4 DAYS FOR THE SEDATION TO WEAR OFF. PT'S VERBALIZED UNDERSTANDING OF ALL TEACHING AND POC. SHE AGREED TO CALL BACK FOR A FOLLOW UP ON PT'S CONDITION.
[2020-06-27] MEDS: cefTRIAXone 1GM/50ML D5W 50 ML IV SCH (08:57)
--- NOTE | 2020-06-27 09:07 | NUR ---
DR. Ilya LINCOLN ROUNDING ON PT. I NOTIFIED HIM OF PT'S LOW PLT'S AND PT'S DVT'S AND LOVENOX BEING HELD X2 DAYS . HE STATES TO CONTINUE TO HOLD LOVENOX. HE IS ALSO GOING TO APPROVE FOR PT TO BE TRANSFERRED TO [place] PER PT'S INSURANCE REQUEST.
[2020-06-27] MEDS: PANTOPRAZOLE 40 MG/10 ML VIAL INJ IV SCH (09:33)
[2020-06-27] MEDS: amLODIPine BESYLATE 5 MG TAB NG SCH (09:37)
[2020-06-27] MEDS: prednisoLONE 15 MG/5 ML ORAL UD GT SCH (09:37)
[2020-06-27] MEDS: ISOSORBIDE MONONITRATE ER 60 MG TAB PO SCH (09:38)
[2020-06-27] MEDS: TACROLIMUS 1 MG CAP NG SCH (09:38)
--- NOTE | 2020-06-27 09:39 | NUR ---
PT AWAKE FOLLOWING COMMANDS. PT'S EYES STILL SHUT CLOSED D/T SWELLING. PT ABLE TO WIGGLE HIS TOES AND SQUEEZE MY HAND ON COMMANDS,PT ALSO NODS HEAD TO SAY YES AND NO.
--- NOTE | 2020-06-27 09:45 | NUR ---
SCALLOP RAKER JACEK LUBRICATION WORKER ROUNDED ON PT UPDATED ON POSSIBLE CPAP THIS AM . NO NEW ORDERS RECEIVED.
[2020-06-27] MEDS: fentaNYL Drip 2500mCg/250mlNS 250 ML IV SCH (10:00)
--- NOTE | 2020-06-27 10:00 | NUR ---
PILO TEST COLLECTED AND TAKEN TO LAB AT THIS TIME TEST REQUESTED IN ORDER TO TRANSFER PT TO [facility] PER DR. Cira LINCOLN PT HAS TO BE TESTED WITHIN THE LAST 48-72 HOURS. PT HAS ALREADY HAD A NEGATIVE PILO TEST AND A NEGATIVE PCR TEST DURING THIS ADMISSION, HE STATES PT DOESN'T NEED TO BE ISOLATED.
--- NOTE | 2020-06-27 10:24 | NUR ---
06/27/20 1024 Faxed clinical packet to [facility] requesting the patient be transferred to a [facility] facility, Post Stabilization was included in the packet and the Md order for transfer request.
--- NOTE | 2020-06-27 10:26 | NUR ---
I NOTIFIED ASSISTANT DIRECTOR TAHMINA DE LEON THAT PT HAS DISCHARGE ORDERS TO TRANSFER TO [place]. TAHMINA STATES THAT SHE ALREADY FAXED EVERYTHING TO [place] THAT IF SHE DOESN'T HEAR ANYTHING FROM [facility] IN THE NEXT 30 MIN. SHE IS GOING TO RE-FAX THE PAPERWORK.
--- NOTE | 2020-06-27 11:16 | NUR ---
COVID PCR IN HOUSE TEST COLLECTED AND SENT TO LAB FOR TESTING WITH ALY RUSSO.
--- NOTE | 2020-06-27 11:17 | NUR ---
FURNACE CONVERTER DR. PÉREZ ROUNDING ON PT. SHE ASSESSED PT'S NEUROLOGICAL RESPONSE OFF SEDATION. SHE AGREES THAT PT SHOULD BE PLACED ON A CPAP TRIAL. SPEAKING TO RT SHARMA REGARDING CPAP TRIAL.
--- NOTE | 2020-06-27 11:20 | NUR ---
PLACED ON CPAP TRIAL BY RT EDITH. PT TOLERATING WELL. SLIGHTLY TACHYPNEIC RR MID 20'S TO LOW 30'S SPO2 REMAINS IN THE UPPER 90'S.
--- NOTE | 2020-06-27 11:50 | NUR ---
BG 142 MEDICATED WITH 2 UNITS OF INSULIN SUBC. ON MOOKIE.
--- NOTE | 2020-06-27 12:00 | NUR ---
WOUND CARE NOTE: IN TO SEE PATIENT AT THIS TIME PER NURSE REQUEST. PATIENT NOTED BY NURSE TO HAVE WORSENING SKIN CONDITION TO THE SACRUM/RIK-ANAL/ LEFT BUTTOCK. PATIENT REMAINS INTUBATED, LIGHTLY SEDATED. HE CONTINUES TO REST ON ICU LOW [facility] BED. PATIENT HAS INDWELLING MOORE CATHETER AND RECTAL TUBE PLACED. PATIENT TURNED TO RIGHT SIDE. HE WEIGHS ONLY 56.4 KG. COCCYX IS VERY PREVALENT. PATIENT HAS EDEMA NOTED TO BILATERAL ARMS, BILATERAL FEET/ANKLES, SCROTUM. MEDIAL SACRUM, LEFT BUTTOCK AND RIK-ANAL SKIN IS DARK RED/PURPLE. PATIENT NOTED TO HAVE DARK RED NON BLANCHABLE SKIN UPON INITIAL ASSESSMENT. WOUND PHOTOS TAKEN AT THAT TIME. SKIN WAS INTACT TO THE AREA. NOW, SKIN IS DARKER RED, WITH PARTIAL THICKNESS SKIN EROSION NOTED TO MEDIAL LOWER SACRUM AND LEFT BUTTOCK. WOUND BED AREAS ARE PINK, PERIWOUND IS DARK RED TO PURPLE. THIS APPEARS TO BE A MASD WITH PARTIAL THICKNESS SKIN EROSION D/T LOOSE STOOLS VS EVOLVING DTI OPEN TO STAGE 2 PRESSURE INJURY. NEW WOUND PHOTOS TAKEN TO SACRUM, LEFT BUTTOCK AT THIS TIME FOR REFERENCE. ADVISED BEDSIDE NURSE TO PROVIDE SIDE TO SIDE ONLY POSITIONING, AVOIDING MASSAGE OF DARK RED/PURPLE SKIN; DIETARY CONSULT; CONTINUATION WITH OTHER WOUND CARE ORDERS PREVIOUSLY PRESCRIBED BY MD. WOUND CARE TEAM WILL CONTINUE TO MONITOR. Addendum: 06/27/20 at 1437 by Annie Mendoza RN Amended: Links added.
--- NOTE | 2020-06-27 12:35 | NUR ---
SPOKE TO SHABNAM FROM [facility] UPDATED ON PT'S CURRENT CONDITION. UPDATED ON ALL LABS, CURRENT MEDICATIONS. PT'S SKIN CONDITION.
--- NOTE | 2020-06-27 12:50 | NUR ---
I CALLED MS. CARLYN GARCIA AND OBTAINED CONSENT TO TRANSFER PT TO [facility].
--- NOTE | 2020-06-27 12:55 | NUR ---
I UPDATED SHABNAM FROM [place] WITH PT'S CONSENT AND OTHER REQUESTED INFORMATION THAT SHE REQUIRED.
--- NOTE | 2020-06-27 13:06 | NUR ---
assessment Patient is a 64 year old male who is on a vent in ICU. Per patients Anahi prior to admission patient lived home with her and needed assistance. Patient has a hospital bed, blade lift, bedside commode, shower chair, fww, oxygen, and cpap for home use. Patients PCP is Dr Caba at [facility] per Anahi. Anahi informed me she called 911 due to patient having shortness of breath. Patient was admitted and put on a vent. I informed Anahi patients post discharge needs to be determined after extubation and prior to discharge. Anahi informed me she agrees to [facility] transfer. I will continue to monitor and follow up as appropriate. Anahi verbalized understanding. Addendum: 06/27/20 at 1307 by Dilcia CANTU Amended: Links added.
--- NOTE | 2020-06-27 13:36 | NUR ---
Patient remains on CPAP weaning trial. Patient is sleeping, in no signs of acute distress. Vitals are stable. SPO2 100%.
--- NOTE | 2020-06-27 14:24 | NUR ---
PT STILL DOING WELL ON CPAP HOWEVER PT STILL VERY SLEEPY. I PAGED BETO FERREIRA TO NOTIFY HER AND ALSO TO LET HER KNOW THAT IT IS POSSIBLE THAT PT MIGHT GET TRANSFER TO [facility]. I'LL ASK IF ITS OKAY FOR PT TO STAY ON CPAP DURING DAY TIME AND BE PLACED ON AC MODE [facility]. CALLED BACK AND IS OKAY WITH HAVING PT ON CPAP AND TO PLACE HIM BACK ON AC AT NIGHT, SO PT WON' GET TIRED OUT, OR TO PLACE HIM BACK ON AC MODE WHEN PT TRANSFERS TO [facility].
--- NOTE | 2020-06-27 16:16 | NUR ---
VANNESA CALLED, STILL WORKING ON TRYING TO GET PT A BED ON EITHER [facility] OR [facility]. PT'S PAPER WORK IS READY FOR PT TO BE TRANSFERRED.
--- NOTE | 2020-06-27 16:58 | NUR ---
SANCHES VIRUS TEST PCR RESULT CAME BACK NEGATIVE .
--- NOTE | 2020-06-27 17:23 | NUR ---
REQUESTED DOCUMENTATION FAXED TO SHABNAM GRANADO CM. SANCHES VIRUS RESENT RESULT AND DISCHARGE ORDER.
--- NOTE | 2020-06-27 18:30 | NUR ---
COMPLETE SPONGE BATH GIVEN. PARTIAL LINEN CHANGED. COCCYX DRESSING CHANGED, PT'S RECTAL TUBE HAD A SMALL LEAKAGE AT INSERTION SITE AND SOILED DRESSING.WOUND CLEANSED WITH WOUND CLEANSER PADDED DRY, THEN APPLIED PROTECTIVE SKIN BARRIER AND COVER WITH OPTIFOAM DRESSING. THEN RIK AND MOORE CARE RENDERED. REPOSITIONED FOR COMFORT WITH ALY MEYER'S ASSISTANCE. PT REMAINS ON CPAP SETTINGS, TOLERATING WELL.
--- NOTE | 2020-06-27 19:29 | NUR ---
REPORT GIVEN TO AMIRA RICE. PT ALREADY HAS AN ACCEPTING PHYSICIAN AT [facility] ROOM [address]. FRETTED INSTRUMENT REPAIRER TIME IS 2014 REPORT CAN BE CALLED AT THE ACCEPTING PHYSICIAN IS DR. GASTON AND THE DIGITAL MEDIA REPRESENTATIVE IS DR. ZUNIGA, CALL SHABNAM WITH ANY ISSUES AT .
--- NOTE | 2020-06-27 19:53 | NUR ---
FAILED ATTEMPT TO GIVE REPORT AT 1930. CALL PLACED NOW TO [facility].
--- NOTE | 2020-06-27 20:10 | NUR ---
TRANSFER REPORT GIVEN RECEIVED FROM AMIRA ZAMUDIO AT [facility].
--- NOTE | 2020-06-27 20:15 | NUR ---
REPORT GIVEN TO LUIS DANIEL RN. CALL PLACED TO JOSE, TO LET HER KNOW WHAT [facility] THE PATIENT WAS GOING TO AND WHAT ROOM.
--- NOTE | 2020-06-27 20:30 | NUR ---
PATIENT ON THEIR MONITOR. PATIENT IS ON THEIR VENTILATOR. JUST MOVED PATIENT TO [facility].
--- NOTE | 2020-06-27 20:31 | NUR ---
[facility] TRANSFER SWAB COMPLETED.
--- NOTE | 2020-06-27 20:34 | NUR ---
NSR WITH OCCASIONAL PVC ON THEIR MONITOR.
--- NOTE | 2020-06-27 20:39 | NUR ---
PATIENT LEFT THE UNIT WITH [facility] PERSONNEL
== END 2020-06-27 20:45 | disposition short-term general hospital (02) | DRG 207 ==
LOC: EDUNIT# 15:27 → EDBD 15:27 → ER 15:27 → ICU WEST 15:28
PROVIDERS: ATTEND Family Medicine
PROC: 5A1955Z Respiratory Ventilation, Greater than 96 Consecutive Hours (ICD-10-PCS; principal; 2020-06-22)
PROC: 0BH17EZ Insertion of Endotracheal Airway into Trachea, Via Natural or Artificial Opening (ICD-10-PCS; 2020-06-22)
PROC: 30233N1 Transfusion of Nonautologous Red Blood Cells into Peripheral Vein, Percutaneous Approach (ICD-10-PCS; 2020-06-25)
DX: J96.01 Acute respiratory failure with hypoxia (principal); J15.0 Pneumonia due to Klebsiella pneumoniae; N17.0 Acute kidney failure with tubular necrosis; E43 Unspecified severe protein-calorie malnutrition; J69.0 Pneumonitis due to inhalation of food and vomit; E87.2 Acidosis; R57.9 Shock, unspecified; I50.22 Chronic systolic (congestive) heart failure; I82.402 Acute embolism and thrombosis of unspecified deep veins of left lower extremity; I42.9 Cardiomyopathy, unspecified; R64 Cachexia; J44.0 Chronic obstructive pulmonary disease with (acute) lower respiratory infection; I13.0 Hypertensive heart and chronic kidney disease with heart failure and stage 1 through stage 4 chronic kidney disease, or unspecified chronic kidney disease; Z94.0 Kidney transplant status; Z20.828 Contact with and (suspected) exposure to other viral communicable diseases; E87.5 Hyperkalemia; D63.1 Anemia in chronic kidney disease; N18.3 Chronic kidney disease, stage 3 (moderate); E11.65 Type 2 diabetes mellitus with hyperglycemia; E83.52 Hypercalcemia; E11.22 Type 2 diabetes mellitus with diabetic chronic kidney disease; E78.5 Hyperlipidemia, unspecified; F03.90 Unspecified dementia, unspecified severity, without behavioral disturbance, psychotic disturbance, mood disturbance, and anxiety; I25.10 Atherosclerotic heart disease of native coronary artery without angina pectoris; K21.9 Gastro-esophageal reflux disease without esophagitis; Z85.528 Personal history of other malignant neoplasm of kidney; Z85.51 Personal history of malignant neoplasm of bladder; Z85.46 Personal history of malignant neoplasm of prostate; Z99.81 Dependence on supplemental oxygen; Z87.01 Personal history of pneumonia (recurrent); Z79.4 Long term (current) use of insulin; Z90.5 Acquired absence of kidney; Z82.49 Family history of ischemic heart disease and other diseases of the circulatory system; Z83.3 Family history of diabetes mellitus; Z91.041 Radiographic dye allergy status; Z79.899 Other long term (current) drug therapy
CPT/HCPCS: 36415; 36600; 71045; 71250; 80048; 80053; 80197; 81001; 82306; 82570; 82728; 82805; 82962; 83605; 83615; 83735; 83880; 83970; 84100; 84132; 84300; 84484; 85025; 85379; 85610; 85730; 86141; 86850; 86900; 86901; 86920; 87040; 87070; 87077; 87081; 87086; 87186; 87205; 87426; 93005; 93306; 93970; 93971; 94002; 94003; A4618; C9113; G0378; J0330; J0696; J1100; J1815; J2250; J2543; J7507; J7510

== ENCOUNTER 2020-07-07 15:14 | Inpatient (IN) | payer OTHER, MEDICAID ==
[~2020-07-07] VITALS: Ht 182.9 cm; Wt 56.2 kg
[2020-07-07] VITALS (12 sets, daily range): BP systolic 84–103; BP diastolic 45–73
[2020-07-07] MEDS ORDERED: ETOMIDATE (2MG/ML) 20ML VIAL IV ONE ×2 (15:35→16:30)
[2020-07-07] MEDS ORDERED: MIDAZOLAM HCL 5 MG/ML-1ML VIAL ONE (15:36)
[2020-07-07] MEDS ORDERED: MIDAZOLAM DRIP 50 mg/50mL 50 ML IV ONE (15:36)
[2020-07-07] MEDS ORDERED: MIDAZOLAM DRIP 50 mg/50mL 50 ML IV SCH (15:45)
[2020-07-07] MEDS ORDERED: MIDAZOLAM HCL 5 MG/ML-1ML VIAL IV ONE (15:45)
[2020-07-07] MEDS: MIDAZOLAM DRIP 50 mg/50mL 50 ML IV SCH ×2 (16:05→22:48)
--- NOTE | 2020-07-07 16:05 | NUR ---
Respiratory note: PT INTUBATED BY DR FOX WITH AN 8.0 ETT AT THE 23 LIP LINE SECURED WITH A JOSE. THERE WAS IMMEDIATE COLOR CHANGE ON THE COLORMETRIC CO2. PT PLACED ON VENT V-20 PLUGGED INTO RED OUTLET. ALL VENT ALARMS ARE AUDIBLE, AND FUNCTIONING. AMBU BAG AT BEDSIDE CONNECTED TO AN O2 SOURCE. BS ARE CLEAR BILATERALLY, SX FOR SCANT AMOUNT OF THICK, WHITE SECRETIONS. NO GAG REFLEX NOTED. SPUTUM CULTURE SENT TO LAB, AND ABG DRAWN. NO VENT CHANGES ORDERED AT THIS TIME. RN AT BEDSIDE. WILL ENDORSE PT STATUS TO VENDING MACHINE REPAIRER. CHARTING COMPLETE FROM OUTSIDE OF PT ROOM PER COVID-19 PRECAUTIONS/PROTOCOL.
[2020-07-07] MEDS ORDERED: NOREPINEPHRINE 8 MG/250ML KIT 250 ML IV ONE (16:21)
[2020-07-07] MEDS: MIDAZOLAM HCL 5 MG/ML-1ML VIAL IV ONE ×2 (16:25→16:27)
--- NOTE | 2020-07-07 16:25 | NUR ---
Respiratory note: ABG CRITICAL RESULTS READ BACK TO DR FOX. TITRATED FIO2 FROM 100%, TO 50%. NO OTHER VENT CHANGES ORDERED AT THIS TIME. WILL CONTINUE TO MONITOR PT. RN AWARE. CHARTING COMPLETE FROM OUTSIDE OF PT ROOM PER COVID-19 PRECAUTIONS/PROTOCOL.
[2020-07-07] MEDS: NOREPINEPHRINE 8 MG/250ML KIT 250 ML IV SCH (16:26)
[2020-07-07 16:37] LABS: Basophils # (auto) 0 10 ^3/uL (0-0.2); Basophils % (auto) 0.2 % (0.0-2.0); Eosinophils # (auto) 0 10 ^3/uL (0-0.8); Eosinophils % (auto) 0.5 % (0.0-7.0); Hematocrit 27.6 % (41.0-53.0); Hemoglobin 8.6 g/dL (13.5-17.5); Lymphocytes # (auto) 0.8 10 ^3/uL (0.4-5.4); Lymphocytes % (auto) 8.9 % (10.0-50.0); Mean Corpuscular Hemoglobin 28.5 pg (28.0-32.0); Mean Corpuscular Hgb Conc. 31.2 g/dL (32.0-36.0); Mean Corpuscular Volume 91.4 fL (80.0-100.0); Monocytes # (auto) 0.4 10 ^3/uL (0-1.3); Monocytes % (auto) 4.8 % (0.0-12.0); Neutrophils # (auto) 7.2 10 ^3/uL (1.6-8.6); Neutrophils % (auto) 85.6 % (37.0-80.0); Platelet Count (auto) 115 10^3/uL (140-450); Red Blood Cells 3.02 10^6/uL (4.5-5.90); Red Cell Distribution Width 21.5 % (11.8-14.3); White Blood Cell 8.5 10^3/uL (4.4-10.8)
[2020-07-07 16:54] LABS: Albumin 1.8 g/dL (3.4-5.0); Calcium 10.1 mg/dL (8.5-10.1); Magnesium 2.1 mg/dL (1.6-2.6); Potassium 5.3 mmol/L (3.5-5.1)
[2020-07-07 17:00] LABS: Bilirubin, Total 0.3 mg/dL (0.2-1.0); Total Protein 5.3 g/dL (6.4-8.2)
[2020-07-07 17:17] LABS: INR 2.53 (0.9-1.15); Partial Thromboplastin Time 26.2 sec (23.0-31.2)
[2020-07-07] MEDS ORDERED: SODIUM ZIRCONIUM CYCL 10 GM PAK PO ONE ×2 (18:45→19:30)
[2020-07-07] MEDS ORDERED: InsuLIN REG 1unit/0.01ml Soln (100units/ml) IV ONE (18:45)
[2020-07-07] MEDS ORDERED: ALBUTEROL SULF 2.5 MG/0.5ML(0.5%) NEB SOLN NEB ONE ×2 (18:45→19:30)
[2020-07-07] MEDS ORDERED: SODIUM BICARBONATE 8.4% INJ 50ML SYRINGE IV ONE ×2 (18:45→19:30)
[2020-07-07] MEDS ORDERED: CALCIUM GLUC 4.65meq/50ml D5AE 50 ML IV ONE (18:45)
[2020-07-07] MEDS ORDERED: FUROSEMIDE 40 MG/4 ML VIAL IV ONE ×2 (18:45→19:30)
[2020-07-07] MEDS ORDERED: DEXTROSE (50%) 50ML SYRG IV ONE (18:45)
[2020-07-07] MEDS ORDERED: AZITHROMYCIN 500MG/ 250ML 250 ML IV ONE (18:45)
[2020-07-07] MEDS ORDERED: ENOXAPARIN SOD 80 MG/0.8ML SYRINGE SC ONE (18:45)
[2020-07-07] MEDS ORDERED: cefTRIAXone 1GM/50ML D5W 50 ML IV ONE (18:45)
[2020-07-07] MEDS ORDERED: NITROGLYCERIN 0.4 MG SL TAB SL PRN (19:00)
[2020-07-07] MEDS ORDERED: MORPHINE SULF INJ 2 MG/ML SYRINGE 1ML IV PRN (19:00)
--- NOTE | 2020-07-07 20:10 | NUR ---
received report from ed rn
[2020-07-07] MEDS ORDERED: VANCOMYCIN PER PHARMACY 1,000 MG IV SCH (21:00)
[2020-07-07] MEDS ORDERED: LORazepam 2MG/ML-1ML VIAL IV PRN (21:00)
[2020-07-07] MEDS ORDERED: ACETAMINOPHEN 325 MG TAB PO PRN (21:00)
[2020-07-07] MEDS ORDERED: DEXTROSE (50%) 50ML SYRG IV PRN (21:15)
[2020-07-07] MEDS ORDERED: hydrALAZINE HCL 25 MG TAB PO PRN (21:45)
--- NOTE | 2020-07-07 21:45 | NUR ---
Respiratory note: PT TRANSPORTED FROM ER TO ICU RM# 104 VIA TRANSPORT VENT AND 02 TANK WITHOUT INCIDENT. PT WAS PLACED BACK ONTO VENT# V20 ON SAME SETTINGS: AC, RR 14, VT 550, +5, 40%. NO S/S OF ANY RESPIRATORY DISTRESS NOTED.
[2020-07-07] MEDS: CARVEDILOL 3.125 MG TAB PO SCH (22:00)
--- NOTE | 2020-07-07 22:00 | NUR ---
Admit to ICU from ER on vent CARLYN,CYNTHIA admitted to ICU via gurney on director of cardiac cath lab, intubated and being bagged by Respiratory Therapist. Patient transfered to bed, connected to mechanical ventilator by therapist, SASHA at bedside. Patient connected to ICU monitoring, weighed by bedscale, oriented to Evan Solomon, primary RN, unit, ventilator and sedation.
--- NOTE | 2020-07-07 22:10 | NUR ---
OPENING NOTE PATIENT INTUBATED WITH 8.0 ETTSC 14 VT550 FIO2 40% PEEP 5. TOLERATING VENTILATOR. SEDATED ON VERSED 10. SB 50'S WITH BP 93/66 ON LEVOPHED 8MCG. RIGHT FEMORAL TLC PLACED 07/07 IN ED CDI, TRANSFUSING ALL MEDS. RECTAL TEMP 94.5'F, STARTING WARMING MEASURES. PLACED RADHA HUGGER. WOUNDS DOCUMENTED. BED LOWERED AND LOCKED FOR SAFETY. PILLOWS PLACED FOR PATIENTS COMFORT. MOORE PLACED USING STERIL TECHNIQUE, DRAINING TO GRAVITY. UA SENT. FOLLOWING COVID 19 RULE OUT ISOLATION. FOR GTTS AND THEIR TITRATIONS SEE IV SPREADSHEET. FOR MORE INFORMATION SEE INTERVENTIONS.
[2020-07-07] MEDS ORDERED: VANCOMYCIN 1GM/250ML 250 ML IV ONE (22:15)
[2020-07-07] MEDS ORDERED: VANCOMYCIN 1GM/250ML 250 ML IV SCH (22:15)
[2020-07-07] MEDS: SODIUM ZIRCONIUM CYCL 10 GM PAK PO SCH (22:41)
[2020-07-07] MEDS: APIXABAN 5 MG TAB PO SCH (22:42)
[2020-07-07] MEDS: ATORVASTATIN 20 MG TAB PO SCH (22:42)
[2020-07-07] MEDS: levETIRAcetam 500 MG TAB PO SCH (22:42)
[2020-07-07] MEDS: TACROLIMUS 1 MG CAP PO SCH (22:43)
[2020-07-07] MEDS: HYDROCORTISONE SOD SUCC 100 MG/2ML INJ VIAL IV SCH (22:48)
[2020-07-07] MEDS: MYCOPHENOLATE 250 MG CAP PO SCH (22:49)
[2020-07-08] VITALS (103 sets, daily range): BP systolic 92–155; BP diastolic 65–90
--- NOTE | 2020-07-08 | NUR ---
ORDERED K LAB ED DOCUMENTATION STATES HYPERKALEMIA MEDICATIONS NOT GIVEN. PER REPORT MEDS GIVEN. REORDERED K DRAWL FOR VERIFICATION.
[2020-07-08] MEDS: PIPERACILLIN-TAZOB 3.375GM 100 ML IV SCH ×4 (00:28→21:29)
[2020-07-08 00:45] LABS: Potassium 5.7 mmol/L (3.5-5.1)
[2020-07-08 00:59] LABS: Urine Bacteria FEW /hpf (None Seen); Urine Blood Negative /uL (Negative); Urine Specific Gravity 1.014 (1.001-1.035); Urine WBC 5 /hpf (0 - 3)
--- NOTE | 2020-07-08 01:00 | NUR ---
ADMINISTERED POTASSIUM COCKTAIL K 5.7, ADMINISTERED HYPERKALEMIC MEDICATIONS
[2020-07-08] MEDS: MIDAZOLAM DRIP 50 mg/50mL 50 ML IV SCH ×5 (01:26→21:30)
--- NOTE | 2020-07-08 02:50 | NUR ---
PAGED HOSPITALIST REGARDING ABG RESULTS AWAITING CALL BACK
--- NOTE | 2020-07-08 04:00 | NUR ---
WOUND CARE PHOTOS TAKEN
[2020-07-08 04:44] LABS: INR 1.3 (0.9-1.15)
--- NOTE | 2020-07-08 04:44 | NUR ---
RE PAGED HOSPITALIST
--- NOTE | 2020-07-08 04:48 | NUR ---
RECEIVED CALL BACK FROM HOSPITALIST UPDATED ON PATIENT ABG, RECEIVED ORDER FOR 2 AMP BICARB
[2020-07-08] MEDS ORDERED: SODIUM BICARBONATE 8.4 % INJ 50ML VIAL IV ONE (05:00)
[2020-07-08] MEDS: InsuLIN REG 1unit/0.01ml Soln (100units/ml) SC SCH ×4 (05:15→18:00)
[2020-07-08] MEDS: ACCU-CHEK COMFORT CURVE STRIP VI SCH ×4 (05:38→18:24)
[2020-07-08] MEDS: SODIUM ZIRCONIUM CYCL 10 GM PAK PO SCH ×3 (06:00→21:29)
[2020-07-08] MEDS ORDERED: FUROSEMIDE 20 MG/2 ML VIAL IV SCH (06:00)
--- NOTE | 2020-07-08 06:11 | NUR ---
Respiratory note: RECEIVED PATIENT ON V20 V200 VENT ORALLY INTUBATED WITH AN 8.0 ETT SECURED VIA JOSE AT THE 22CM MARKING AT THE LIP, AND MECHANICALLY VENTILATED WITH THE CHARTED SETTINGS. SPO2 98%, LUNG SOUNDS CLEAR T/O, SMALL AMOUNT OF THICK CREAMY WHITE SECRETIONS WHEN SUCTIONED. SKIN IS WARM/DRY TO THE TOUCH AND IS INTACT NEAR JOSE SITE. THERE IS A NGT PLACED IN THE LEFT NARE AND IS SECURED TO THE NOSE, AND NO ADVANCE ACCESS LINES ARE NOTED. PITTING EDEMA NOTED IN BILATERAL UPPER AND LOWER EXTREMITIES. LEG SEQUENTIALS ARE IN PLACE AND OPERATIONAL. NO NEW AM CXR TO ASSESS. PATIENT IS UNRESPONSIVE TO BOTH VERBAL/TACTILE STIMULI AND IS SEDATED ON A VERSED DRIP. HE IS RESTING COMFORTABLY AND TOLERATING VENT WELL, NO CHANGES MADE. VENT PLUGGED INTO RED OUTLET AND ALL ALAR,S ARE SET AND AUDIBLE. WILL CONTINUE TO ASSESS PATIENT WELL VENTILATOR FUNCTION.
[2020-07-08 06:47] LABS: Basophils # (auto) 0 10 ^3/uL (0-0.2); Basophils % (auto) 0.5 % (0.0-2.0); Eosinophils # (auto) 0 10 ^3/uL (0-0.8); Eosinophils % (auto) 0.1 % (0.0-7.0); Hematocrit 27.8 % (41.0-53.0); Hemoglobin 8.7 g/dL (13.5-17.5); Lymphocytes % (auto) 9.7 % (10.0-50.0); Mean Corpuscular Hemoglobin 28.3 pg (28.0-32.0); Mean Corpuscular Hgb Conc. 31.3 g/dL (32.0-36.0); Mean Corpuscular Volume 90.6 fL (80.0-100.0); Monocytes # (auto) 0.2 10 ^3/uL (0-1.3); Monocytes % (auto) 1.5 % (0.0-12.0); Neutrophils # (auto) 9.2 10 ^3/uL (1.6-8.6); Neutrophils % (auto) 88.2 % (37.0-80.0); Nucleated Red Blood Cells % 0.1 %; Platelet Count (auto) 155 10^3/uL (140-450); Red Blood Cells 3.06 10^6/uL (4.5-5.90); White Blood Cell 10.5 10^3/uL (4.4-10.8)
[2020-07-08 07:00] LABS: BUN/Creatinine Ratio 14.7; Calcium 10.2 mg/dL (8.5-10.1); Potassium 5.3 mmol/L (3.5-5.1)
[2020-07-08 07:06] LABS: Red Cell Distribution Width 22.1 % (11.8-14.3)
[2020-07-08] MEDS: FAMOTIDINE (10MG/ML) 2ML VL IV SCH (09:49)
[2020-07-08] MEDS: CARVEDILOL 3.125 MG TAB PO SCH (09:50)
[2020-07-08] MEDS: HYDROCORTISONE SOD SUCC 100 MG/2ML INJ VIAL IV SCH ×2 (09:50→21:29)
[2020-07-08] MEDS: MYCOPHENOLATE 250 MG CAP PO SCH ×2 (09:50→19:24)
[2020-07-08] MEDS: APIXABAN 5 MG TAB PO SCH ×2 (09:51→21:29)
[2020-07-08] MEDS: SERTRALINE HCL 50 MG TAB PO SCH (09:51)
[2020-07-08] MEDS: TACROLIMUS 1 MG CAP PO SCH ×2 (09:51→19:25)
[2020-07-08] MEDS: levETIRAcetam 500 MG TAB PO SCH ×2 (09:51→21:29)
[2020-07-08] MEDS ORDERED: ENOXAPARIN SOD 40 MG/0.4 ML SYRINGE SC SCH (10:00)
[2020-07-08] MEDS ORDERED: ISOSORBIDE MONONITRATE ER 60 MG TAB PO SCH (10:00)
--- NOTE | 2020-07-08 10:36 | NUR ---
Nutrition Consult Consider restarting Glucerna 1.2 at a goal rate of 75ml/hr Consider adding MVI and Vitamin C 500 mg BID for wound healing Est energy needs 4846-1099 kcal (30-35 kcal/kg BW 56.8kg r/t to underwt) Est protein needs 57-62g (1-1.1g/kg BW 56.8kg r/t underwt, hypoalb, elevated RFT) Will reassess prn Addendum: 07/08/20 at [address] Amended: Links added.
[2020-07-08] MEDS ORDERED: VANCOMYCIN 1GM/250ML 250 ML IV ONE (11:00)
--- NOTE | 2020-07-08 12:08 | NUR ---
WOUND CARE NOTE: Wound care in to see patient per wound care request regarding multiple wounds/ skin integrity issue that are noted present on admission. Bedside nurse took photograph of patient's wounds/skin issue upon admission for reference. Patient is 64 years old male with admitting diagnosis of Acute Unspecified Pneumonia. Patient is resting in ICU low air loss bed in Rm. 104. Patient is intubated, sedated and mechanically ventilated. Patient appears to be in no pain using Browning Zhao Faces Pain Scale. His Rod score is 10. Skin/wound assessment done with the assistance of student nurse automatic profile shaper operator. Patient noted with edematous BUE and BLE. Patient's L knee has multi intact pink scar tissue, with hard hyperkeratotic skin. (2x3.5cm) Eschar wound noted to his L dorsal foot 90% black eschar, 10% pink/red at wound edges, no drainage/odor noted. Patient's L heel noted with non-blanchable redness, ashen pollock skin color (Stage 1 pressure injury), no drainage/odor noted. Patient's coccyx noted with 5x4cm open full thickness wound with no measurable depth. Wound bed is red with pale pink area, palpable bone noted at pale pink area, surrounding skin is hyperpigmented, minimal serous drainage noted,no odor noted. 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 Patient is quadriplegic, wheel chair bound, cachectic, weighs 56.8 Kg with very prominent bony prominences. Large intact ecchymosis noted on his Lt lateral side of body at rib cage area. Intact scar with brown hyperpigmented skin noted to his Lateral hip/thigh area, skin is intact, clean and dry, left open to air. Cleansed coccyx wound with wound cleanser, patted dry with gauze, applied Thera honey gel over open wound bed area and covered with Opti foam gentle dressing. Applied Barrier cream to to lower buttocks and perineum. Repositioned patient for comfort facing his Rt. side, redistributed pressure points with pillows and elevated BLE on pillows. Patient tolerated well. Dr. Fernández at ICU nurse station and aware of patient's pressure injuries. RECOMMENDATION: Nursing to continue with Daily/PRN dressing change to coccyx and L foot wounds per MD order, BID/PRN cleaning and application of Barrier cream to lower buttocks and perineum as preventative, Dietary consult, frequent turning and repositioning schedule as condition permits, redistribute pressure points with pillows, elevate heels and edematous extremities on pillows, air mattress if patient is transferring to different unit other than ICU/SDU, continue monitoring by wound care while patient is hospitalized. Addendum: 07/08/20 at 1603 by Ene Louie RN Amended: Links added.
--- NOTE | 2020-07-08 13:47 | NUR ---
CALLED AND SPOKE WITH MG. INFORMED HER OF NEW ORDER TO TRANSFER PATIENT TO [facility].
--- NOTE | 2020-07-08 16:07 | NUR ---
1420 07/08/20 - Faxed to [facility] at [phone] face sheet, order to transfer to [facility] ICU bed via critical care ambulance, transfer summary, consultation, pending review and ICU bed availability. Addendum: 07/08/20 at 1639 by Bettina Wheeler RN 1600 07/08/20 - Contacted by [facility] it business systems analyst Dominick, who confirmed receiving all faxed clinicals and order to transfer patient to [facility] ICU bed. Per it business systems analyst request verbal report provided on patient's condition, Dominick stated all inform sent to for review and processing for transfer of patient when bed available.
[2020-07-08] MEDS: SODIUM BICARB 50ML SYR 75 ML in SOD CHL 0.45% 1,000 ML IV SCH (16:16)
[2020-07-08] MEDS: NOREPINEPHRINE 8 MG/250ML KIT 250 ML IV SCH (16:30)
--- NOTE | 2020-07-08 20:00 | NUR ---
SPOKE WITH [facility] R[facility] MILL OPERATOR PATIENT TO BE TRANSFERRED TOMORROW 07/09/20. REQUESTING CT CHEST TO R/O pneumothorax
--- NOTE | 2020-07-08 20:10 | NUR ---
BM CLEANED FOOTBALL SIZED SOFT STOOL CLEANED. LINENS CHANGE
[2020-07-08] MEDS: LINEZOLID 600MG/300ML 300 ML IV SCH (21:29)
[2020-07-08] MEDS: ATORVASTATIN 20 MG TAB PO SCH (21:30)
--- NOTE | 2020-07-08 22:43 | NUR ---
SPOKE WITH [facility] TRANSPORTATION SALES CONSULTANT SPOKE WITH VIJAY ABOUT TRANSFER TO [facility]. PENDING CT CHEST FOR R/O pneumothorax. BED AVAILABLE IF COMPLETED STAT
--- NOTE | 2020-07-08 23:10 | NUR ---
PATIENT TAKEN TO CT
--- NOTE | 2020-07-08 23:28 | NUR ---
RT NOTE PT TRANSPORTED TO CT AND BACK WITHOUT INCIDENT. PT PLACED ON TRANSPORT VENT FOR TRANSPORT. TRANSPORT COMPLETED WITH RT, AMIAR GEORGES AND MELO DICKERSON. PT PLACED BACK ON VENT IN ICU.
[2020-07-09] VITALS (103 sets, daily range): BP systolic 110–170; BP diastolic 67–97
[2020-07-09] MEDS: SODIUM BICARB 50ML SYR 75 ML in SOD CHL 0.45% 1,000 ML IV SCH (00:15)
--- NOTE | 2020-07-09 00:16 | NUR ---
RECEIVED CALL FROM ACCOUNTS PAYABLE REPRESENTATIVE UPDATED ON PATIENT STATUS. SPOKE WITH VIJAY
[2020-07-09] MEDS: InsuLIN REG 1unit/0.01ml Soln (100units/ml) SC SCH ×4 (00:54→18:12)
--- NOTE | 2020-07-09 01:14 | NUR ---
RECEIVED CALL BACK FROM [facility] PRINTER FLOOR COVERING ASSISTANT VIJAY CALL SAYING TO HOLD TRANSFER UNTIL THORACENTESIS CAN BE COMPLETED.
[2020-07-09] MEDS: MIDAZOLAM DRIP 50 mg/50mL 50 ML IV SCH ×5 (02:00→15:48)
--- NOTE | 2020-07-09 02:13 | NUR ---
[facility] LACTATION CONSULTANTWOOLING MACHINE OPERATOR VIJAY, PHONE NUMBER [phone] FAX [phone]
--- NOTE | 2020-07-09 03:31 | NUR ---
COMPLETE BED BATH GIVEN FULL LINEN CHANGE, CHG AND WASH CLOTHS USED. SKIN REASSESSED AND NO NEW BREAK DOWN NOTED. MEDIUM BM CLEANED
[2020-07-09 04:14] LABS: Basophils # (auto) 0 10 ^3/uL (0-0.2); Eosinophils # (auto) 0 10 ^3/uL (0-0.8); Monocytes # (auto) 0.3 10 ^3/uL (0-1.3); Nucleated Red Blood Cells % 0.3 %; White Blood Cell 5.7 10^3/uL (4.4-10.8)
[2020-07-09 04:17] LABS: Basophils % (auto) 0.1 % (0.0-2.0); Hematocrit 25.8 % (41.0-53.0); Hemoglobin 8.3 g/dL (13.5-17.5); Lymphocytes % (auto) 16.8 % (10.0-50.0); Mean Corpuscular Hemoglobin 28.5 pg (28.0-32.0); Mean Corpuscular Hgb Conc. 32.3 g/dL (32.0-36.0); Monocytes % (auto) 5.2 % (0.0-12.0); Neutrophils # (auto) 4.4 10 ^3/uL (1.6-8.6); Neutrophils % (auto) 77.9 % (37.0-80.0); Platelet Count (auto) 119 10^3/uL (140-450); Red Blood Cells 2.93 10^6/uL (4.5-5.90)
[2020-07-09 04:32] LABS: Albumin 1.7 g/dL (3.4-5.0); Calcium 10.2 mg/dL (8.5-10.1); Magnesium 1.9 mg/dL (1.6-2.6); Potassium 3.8 mmol/L (3.5-5.1)
[2020-07-09 04:35] LABS: BUN/Creatinine Ratio 15.5
[2020-07-09 04:38] LABS: Bilirubin, Total 0.3 mg/dL (0.2-1.0); Phosphorus 3.3 mg/dL (2.5-4.90); Total Protein 5.4 g/dL (6.4-8.2)
[2020-07-09] MEDS: SODIUM ZIRCONIUM CYCL 10 GM PAK PO SCH (05:45)
[2020-07-09] MEDS: PIPERACILLIN-TAZOB 3.375GM 100 ML IV SCH ×3 (05:45→22:01)
[2020-07-09] MEDS: ACCU-CHEK COMFORT CURVE STRIP VI SCH ×4 (05:52→18:09)
[2020-07-09] MEDS: MYCOPHENOLATE 250 MG CAP PO SCH ×2 (10:00→22:00)
[2020-07-09] MEDS: TACROLIMUS 1 MG CAP PO SCH ×2 (10:00→22:00)
[2020-07-09] MEDS: SERTRALINE HCL 50 MG TAB PO SCH (10:17)
[2020-07-09] MEDS: ISOSORBIDE MONONITRATE ER 60 MG TAB PO SCH (10:17)
[2020-07-09] MEDS: levETIRAcetam 500 MG TAB PO SCH ×2 (10:17→22:01)
[2020-07-09] MEDS: FAMOTIDINE (10MG/ML) 2ML VL IV SCH (10:17)
[2020-07-09] MEDS: LINEZOLID 600MG/300ML 300 ML IV SCH ×2 (10:17→22:01)
[2020-07-09] MEDS: HYDROCORTISONE SOD SUCC 100 MG/2ML INJ VIAL IV SCH ×2 (10:17→22:01)
--- NOTE | 2020-07-09 10:30 | NUR ---
AT BEDSIDE DR. NEGRON AT BEDSIDE. NEW ORDERS IN PLACE. MD AWARE OF -ASYMPTOMATIC BRADYCARDIA 40-50'S. - PROGRAF HELD MEDICATION CANNOT BE CRUSHED SEE NEW ORDERS.
[2020-07-09] MEDS ORDERED: Glucerna 1.2 Cal 1Liter BOTTLE GT SCH (10:45)
[2020-07-09] MEDS ORDERED: FUROSEMIDE 40 MG/4 ML VIAL IV ONE (10:45)
[2020-07-09] MEDS ORDERED: amLODIPine BESYLATE 5 MG TAB GT ONE (10:45)
[2020-07-09] MEDS: hydrALAZINE HCL 25 MG TAB PO SCH ×2 (14:31→22:04)
[2020-07-09] MEDS: NOREPINEPHRINE 8 MG/250ML KIT 250 ML IV SCH (14:34)
--- NOTE | 2020-07-09 16:00 | NUR ---
PARTIAL LINEN CHANGE PATIENT HAD A MODERATE, PASTY BROWN BM. SKIN CLEANSED. WOUND CARE PERFORMED TO SACRAL ULCER PER MD ORDERS. NEW OPTIFOAM PLACED. PT TOLERATED ACTIVITY WELL.
--- NOTE | 2020-07-09 17:13 | NUR ---
[employer] CONSTRUCTION ESTIMATOR KAYLENE FROM [facility]. INFORMED OF POSSIBLE THORACENTESIS IN A.M.
--- NOTE | 2020-07-09 18:17 | NUR ---
NUTRITION TF INCREASED TO 30ML/HR. NO GASTRIC RESIDUAL NOTED VIA ASPIRATION OF LEFT NARE NG. ASPIRATION PRECAUTIONS IN PLACE.
--- NOTE | 2020-07-09 18:47 | NUR ---
Attempted to contact Anahi to update on patients status and obtain consents for a.m. No answer, callback number left. Awaiting callback.
--- NOTE | 2020-07-09 20:11 | NUR ---
CALLED PT'S , NO ANSWER ,LEFT MWSSACE FOR HER TO CALL US BACK, GIVEN ICU PHONE NUMBER.
[2020-07-09] MEDS: ATORVASTATIN 20 MG TAB PO SCH (22:01)
[2020-07-10] VITALS (93 sets, daily range): BP systolic 126–175; BP diastolic 73–98
[2020-07-10] MEDS: InsuLIN REG 1unit/0.01ml Soln (100units/ml) SC SCH ×5 (00:16→23:42)
[2020-07-10] MEDS: ACCU-CHEK COMFORT CURVE STRIP VI SCH ×5 (00:17→23:39)
[2020-07-10 04:02] LABS: Basophils # (auto) 0 10 ^3/uL (0-0.2); Basophils % (auto) 0.1 % (0.0-2.0); Eosinophils # (auto) 0 10 ^3/uL (0-0.8); Hemoglobin 8.5 g/dL (13.5-17.5); Lymphocytes # (auto) 0.6 10 ^3/uL (0.4-5.4); Lymphocytes % (auto) 15.1 % (10.0-50.0); Mean Corpuscular Hemoglobin 28.9 pg (28.0-32.0); Mean Corpuscular Hgb Conc. 32.9 g/dL (32.0-36.0); Mean Corpuscular Volume 87.9 fL (80.0-100.0); Monocytes # (auto) 0.2 10 ^3/uL (0-1.3); Monocytes % (auto) 4.4 % (0.0-12.0); Neutrophils # (auto) 3.5 10 ^3/uL (1.6-8.6); Neutrophils % (auto) 80.4 % (37.0-80.0); Nucleated Red Blood Cells % 0.5 %; Platelet Count (auto) 122 10^3/uL (140-450); Red Blood Cells 2.95 10^6/uL (4.5-5.90); White Blood Cell 4.3 10^3/uL (4.4-10.8)
[2020-07-10 04:08] LABS: Red Cell Distribution Width 21.7 % (11.8-14.3)
[2020-07-10 04:22] LABS: INR 1.22 (0.9-1.15); Partial Thromboplastin Time 28.1 sec (23.0-31.2)
[2020-07-10] MEDS: MIDAZOLAM DRIP 50 mg/50mL 50 ML IV SCH ×4 (04:30→18:15)
[2020-07-10 05:03] LABS: Albumin 1.7 g/dL (3.4-5.0); BUN/Creatinine Ratio 15.6; Bilirubin, Total 0.3 mg/dL (0.2-1.0); Calcium 9.5 mg/dL (8.5-10.1); Total Protein 5.3 g/dL (6.4-8.2)
[2020-07-10 05:16] LABS: Potassium 2.9 mmol/L (3.5-5.1)
[2020-07-10] MEDS: PIPERACILLIN-TAZOB 3.375GM 100 ML IV SCH ×3 (05:25→21:45)
[2020-07-10] MEDS: hydrALAZINE HCL 25 MG TAB PO SCH ×3 (06:02→21:44)
--- NOTE | 2020-07-10 06:10 | NUR ---
Respiratory note: RECEIVED PT FROM TREASURY SPECIALIST ON VENT V-20 PLUGGED INTO RED OUTLET. ALL VENT ALARMS ARE AUDIBLE, AND FUNCTIONING. AMBU BAG/MASK IS AT BEDSIDE CONNECTED TO AN O2 SOURCE. ETT IS 8.0 @ THE 23 LIP LINE SECURED WITH JOSE. MOVED ETT FROM RIGHT, TO CENTER. NO SKIN/ORAL BREAK DOWN NOTED. BS ARE CLEAR BILATERALLY. SX FOR A SCANT AMOUNT OF THICK, CLEAR SECRETIONS. GAG REFLEX NOTED. PT SKIN IS EDEMATOUS IN BOTH UPPER, AND LOWER EXTREMITIES. PT SKIN IS WARM/DRY TO THE TOUCH. PT IS RESPONSIVE TO TACTILE STIMULI. NO OTHER VENT CHANES ORDERED AT THIS TIME. WILL CONTINUE TO MONITOR PT.
[2020-07-10] MEDS ORDERED: POTASSIUM CHLORIDE 40 MEQ, LIDOCAINE 1% (LOCAL ANESTH.) 4 ML in SODIUM CHL 0.9% 100 ML IV ONE (07:15)
--- NOTE | 2020-07-10 09:42 | NUR ---
Thoracentesis Bilateral thoracentesis to be done today shortly or if not after lunch. Tray to be provided at bedside. Consents completed in chart.
[2020-07-10] MEDS: POTASSIUM CHL 20MEQ/100ML 100 ML IV SCH ×3 (09:52→13:32)
[2020-07-10] MEDS: amLODIPine BESYLATE 5 MG TAB GT SCH (09:53)
[2020-07-10] MEDS: FAMOTIDINE (10MG/ML) 2ML VL IV SCH (09:53)
[2020-07-10] MEDS: HYDROCORTISONE SOD SUCC 100 MG/2ML INJ VIAL IV SCH ×2 (09:53→21:43)
[2020-07-10] MEDS: ISOSORBIDE MONONITRATE ER 60 MG TAB PO SCH (09:53)
[2020-07-10] MEDS: LINEZOLID 600MG/300ML 300 ML IV SCH ×2 (09:54→21:46)
[2020-07-10] MEDS: TACROLIMUS 1 MG CAP PO SCH ×2 (09:54→21:47)
[2020-07-10] MEDS: MYCOPHENOLATE 250 MG CAP PO SCH ×2 (09:54→21:47)
--- NOTE | 2020-07-10 11:00 | NUR ---
Radiologist and home theatre technician at bedside preparing for right thoracentesis.
--- NOTE | 2020-07-10 11:33 | NUR ---
Received a call from Claire ST at [facility] [place] [phone], gave verbal update on the patient. She ask about the thoracentesis being done, express to her that the LT side thoracentesis was being done at 1100 per the nurses notes, stated she did think the patient would be transferred today and gave in patient stay authorization #[id number] for 07/11/20 @ 1000am. Gave her the the room number of the patient, phone number for the unit and the nurses name as she requested.
--- NOTE | 2020-07-10 11:34 | NUR ---
BEDSIDE LEFT SIDED THORACENTESIS PERFORMED, PATIENT TOLERATED WELL AND VITALS STABLE. Addendum: 07/10/20 at 1146 by Rona Taylor RN f/u cxr in place. Addendum: 07/10/20 at 1342 by Rona Taylor RN Pleural fluid walked over to lab by traveling secretary with cytology form.
--- NOTE | 2020-07-10 11:34 | NUR ---
Thoracentesis Left thoracentesis performed by Radiologist. Total of 600cc pleural fluid removed. Awaiting leacher to determine if fluid is to be sent to lab.
--- NOTE | 2020-07-10 12:00 | NUR ---
at bedside Dr. Ventura updated on patient status. Md aware of pleural fluid removed. Md aware of possible transfer to [facility] with thoracentesis completed. See S.S. notes.
[2020-07-10] MEDS: levETIRAcetam 500 MG TAB PO SCH ×2 (12:15→21:44)
[2020-07-10] MEDS: SERTRALINE HCL 50 MG TAB PO SCH (12:16)
--- NOTE | 2020-07-10 12:34 | NUR ---
Nutrition Followup Note Wt 56kg Pt was with care team at time of rounds. Pt received thoracentesis per RN note. Pt with GLucerna 1.2 ordered at 30 ml/hr with pt receiving TF at 30 ml with no residuals per Rn note. Consider a goal rate of 75ml/hr for TF to better meet pt energy needs. Est energy needs 0300-2246 kcal (30-35 kcal/kg BW 56.8kg r/t to underwt) Est protein needs 57-62g (1-1.1g/kg BW 56.8kg r/t underwt, hypoalb, elevated RFT) Will reassess prn Labs: K 2.9L, BUN 35H, Creat 2.24H, Alb 1.7L, GLUC 180H BM: Pt with 3 BMs 07/10 per Rn note Skin: BS 9 low risk, full details in career consultant note PES: Altered nutrition related labs r/t current and chronic medical condition aeb pt with elevated RFTs, hyperglycemia, hypoalb Inadequate oral intake r/t current medical condition aeb pt intubated and sedated with no diet order Comments 1) Continue to monitor po status, labs, skin 2) refer pt to [facility] on DC 3) Continue current plan of care Consider Glucerna 1.2 at 75 ml/hr Consider adding MVI and Vitamin C 500 mg bid for wound healing Expected Outcomes/Goals: 1) Advance TF to meet >75% of needs 2) advance diet as medically feasible 3) pt labs to improve 4) f/u 2-3 days
[2020-07-10] MEDS: NOREPINEPHRINE 8 MG/250ML KIT 250 ML IV SCH (13:32)
--- NOTE | 2020-07-10 15:45 | NUR ---
Transfer Follow up CM at [place] [phone] contacted to notify patient has had left thoracentesis with 600 cc drained, Per hospitalist/ grounds supervisor she feels patient is stable for transfer and bilateral thoracentesis is not advised at this time. requesting to continue to transfer. strategic communications manager from [place] stating chart is being reviewed with updated information sent over by S.W today.
--- NOTE | 2020-07-10 17:30 | NUR ---
Family updated on pt status Family of CYNTHIA ALCOCER updated on patient's status and condition. All questions and concerns addressed. Anahi verbalized understanding.
--- NOTE | 2020-07-10 18:15 | NUR ---
Nutrition Tube feedings tolerated well with no gastric residual. Tf increased to 45ml/hr. Aspiration precautions in place.
--- NOTE | 2020-07-10 18:18 | NUR ---
Respiratory note: RECEIVED PT ON VENT V20, VENT CONNECTED TO RED OUTLET AND O2 SOURCE. ALARMS ARE SET AND AUDIBLE. AMBU BAG AND MASK AT BEDSIDE. BS ARE FINE COURSE, ATTEMPTED TO SX VIA ETT PT BITING ON ETT, PLACED GREEN SIZE 8 OPA IN ORAL CAVITY. RN FRANTZ AWARE OF PLACEMENT. SXD VIA ETT FOR SMALL THICK CREAM/WHITE SECRETIONS. RT NAME AND PAGER ASSIGNMENT WRITTEN ON PTS ROOM BOARD WILL CONTINUE TO MONITOR.
--- NOTE | 2020-07-10 19:26 | NUR ---
Report received from AMIRA Ryan. Patient intubated with ETT 24 L/L to Vent. Vent settings: AC 14 Vt 550 FiO2 30% PEEP 5. IVF: Versed drip infusion at 2 mg/hr. Will continue to monitor VS, RASS -3, and clinical status.
[2020-07-10] MEDS: ATORVASTATIN 20 MG TAB PO SCH (21:45)
--- NOTE | 2020-07-10 21:47 | NUR ---
Rtn scheduled medications given. See e-MAR. Zyvoxx will not scanned.
--- NOTE | 2020-07-10 23:43 | NUR ---
Accucheck 203 mg/dl. Patient covered with Regular Insulin 6 units SQ.
[2020-07-11] VITALS (91 sets, daily range): BP systolic 136–169; BP diastolic 82–98
--- NOTE | 2020-07-11 | NUR ---
Warm blankets applied to patient due to patient Temperature 95.9.
[2020-07-11] MEDS: MIDAZOLAM DRIP 50 mg/50mL 50 ML IV SCH ×4 (00:30→15:30)
--- NOTE | 2020-07-11 01:30 | NUR ---
Patient has stool incontinence. Large runny brown stool.
--- NOTE | 2020-07-11 03:31 | NUR ---
Design Sales Consultant on unit. Client Experience Manager collected AM Labs from [facility]. Specimens given to Design Sales Consultant and specimens sent to lab.
[2020-07-11 04:00] LABS: Basophils # (auto) 0 10 ^3/uL (0-0.2); Eosinophils # (auto) 0 10 ^3/uL (0-0.8); Hemoglobin 8.9 g/dL (13.5-17.5); Lymphocytes % (auto) 24.1 % (10.0-50.0); Mean Corpuscular Hemoglobin 28.7 pg (28.0-32.0); Monocytes # (auto) 0.4 10 ^3/uL (0-1.3); Monocytes % (auto) 10.4 % (0.0-12.0); Neutrophils # (auto) 2.7 10 ^3/uL (1.6-8.6); Neutrophils % (auto) 65.5 % (37.0-80.0); Nucleated Red Blood Cells % 0.2 %; Platelet Count (auto) 101 10^3/uL (140-450); White Blood Cell 4.2 10^3/uL (4.4-10.8)
--- NOTE | 2020-07-11 04:00 | NUR ---
Patient has moderate runny brown stool incontinence. Patient given bed bath and linen change.
[2020-07-11 04:11] LABS: Red Cell Distribution Width 21.3 % (11.8-14.3)
[2020-07-11 04:16] LABS: Albumin 1.7 g/dL (3.4-5.0); Calcium 9.6 mg/dL (8.5-10.1)
[2020-07-11 04:20] LABS: BUN/Creatinine Ratio 16.2; Bilirubin, Total 0.3 mg/dL (0.2-1.0); Total Protein 5.1 g/dL (6.4-8.2)
[2020-07-11 04:23] LABS: Potassium 2.7 mmol/L (3.5-5.1)
--- NOTE | 2020-07-11 04:23 | NUR ---
Lab called and report K+ 2.7.
--- NOTE | 2020-07-11 04:30 | NUR ---
Jeff Spicer applied to patient.
[2020-07-11] MEDS: PIPERACILLIN-TAZOB 3.375GM 100 ML IV SCH (05:41)
[2020-07-11] MEDS: hydrALAZINE HCL 25 MG TAB PO SCH ×2 (05:42→14:00)
[2020-07-11] MEDS: ACCU-CHEK COMFORT CURVE STRIP VI SCH ×3 (05:52→17:43)
[2020-07-11] MEDS: InsuLIN REG 1unit/0.01ml Soln (100units/ml) SC SCH ×3 (05:55→17:50)
--- NOTE | 2020-07-11 05:56 | NUR ---
Accucheck 139 mg/dl. Patient covered with Regular Insulin 2 units SQ.
[2020-07-11] MEDS ORDERED: POTASSIUM CHL 20MEQ/100ML 100 ML IV ONE (06:15)
--- NOTE | 2020-07-11 09:36 | NUR ---
Resumed care at 0725, orders reviewed and ongoing assessments being done. Being treated for multiple problems and remains intubated and sedated for ventilator management. Contacted Dr. Fernández at 0920 and made her aware of K level this am, 2.7. Per prior shift , Doshi DROP FORGE OPERATOR ordered 20 meq KCL IVPB , once only. Per Dr. Fernández will draw Phosphorus level before administering more potassium.
[2020-07-11] MEDS: TACROLIMUS 1 MG CAP PO SCH (10:00)
[2020-07-11] MEDS: MYCOPHENOLATE 250 MG CAP PO SCH (10:00)
[2020-07-11] MEDS: ISOSORBIDE MONONITRATE ER 60 MG TAB PO SCH (10:00)
--- NOTE | 2020-07-11 10:40 | NUR ---
07/11/20 1040Received a Call from Abigail TS at [facility] and stated she received the clinical packet that was sent and she is requesting a bed for the patient at [facility]. Stated she would call when bed is available. Addendum: 07/11/20 at 1204 by Uzma Galindo RN, CM roderick for the spelling of the name Claire ST.
[2020-07-11] MEDS ORDERED: POTASSIUM EFFERVESENT TAB 25 MEQ GT ONE (10:45)
[2020-07-11] MEDS: HYDROCORTISONE SOD SUCC 100 MG/2ML INJ VIAL IV SCH (11:04)
[2020-07-11] MEDS: FAMOTIDINE (10MG/ML) 2ML VL IV SCH (11:04)
[2020-07-11] MEDS: amLODIPine BESYLATE 5 MG TAB GT SCH (11:04)
[2020-07-11] MEDS: levETIRAcetam 500 MG TAB PO SCH (11:04)
[2020-07-11] MEDS: SERTRALINE HCL 50 MG TAB PO SCH (11:05)
[2020-07-11] MEDS ORDERED: levoFLOXacin 750MG 150 ML IV SCH (11:15)
--- NOTE | 2020-07-11 11:58 | NUR ---
Received a call from Claire ST at [facility] stated the patient will be going to [facility] in [place], they do not have a bed yet, but the accepting is Dr. Michael Leung, they don't have a nurse at this time so the waste picker time will be after 1900 and she will call when they get a bed.
--- NOTE | 2020-07-11 12:06 | NUR ---
Called Sarah COLLIER and made her aware that the patient will be going to [facility] in [place] and about the pickling solution maker time, ask if she would inform the family and stated she would.
--- NOTE | 2020-07-11 13:35 | NUR ---
Received a call from Joanna Cloth Framer at [facility] stated the patient has a bed at [facility], ICU 232, pick and shovel worker time 193, call report to [phone].
--- NOTE | 2020-07-11 13:40 | NUR ---
Called ICU and spoke with Pau COLLIER, gave her the transfer information and stated she would give it to Sarah COLLIER for the patient
[2020-07-11] MEDS ORDERED: LINEZOLID 600MG/300ML 300 ML IV ONE (15:45)
[2020-07-11] MEDS: NOREPINEPHRINE 8 MG/250ML KIT 250 ML IV SCH (16:30)
--- NOTE | 2020-07-11 17:10 | NUR ---
assessment Patient is a 64 year old male who is on a vent in ICU. Per patients Anahi prior to admission patient lived home with her and needed assistance. Patient has a hospital bed, blade lift, bedside commode, shower chair, fww, oxygen, and cpap for home use. Patients PCP is Dr Caba at [facility] [place] per Anahi. Anahi informed me patients home health nurse called [phone] due to patient having shortness of breath and fluid in his lungs. Patient was admitted and put on a vent. I informed Anahi patient has a ss consult for transfer to [facility]. Anahi informed me she agrees to [facility] transfer. I will continue to monitor and follow up as appropriate. Anahi verbalized understanding. Addendum: 07/11/20 at 1711 by Dilcia CANTU Amended: Links added.
--- NOTE | 2020-07-11 17:22 | NUR ---
Dr. Fernández rounded at 0920. Discussed condition and plan of care. Continue with transfer to [facility]. Dr. Fernández aware of positive urine culture and sputum culture. Made changes in antibiotic therapy. Have been communicating with Uzma Galindo (case management) regarding transfer. Transfer confirmed. Will be going to [facility] in [place], bed and doctor assignment given. All paperwork completed for transfer and consent was obtained from Anahi Carrington. Notified her of facility and forward room and telephone number to Hospital. Will be picked up after 1930 today. Discharge photos taken of skin integumentary.
--- NOTE | 2020-07-11 19:14 | NUR ---
Report given to Aye Caraballo who will resume care.
--- NOTE | 2020-07-11 19:30 | NUR ---
report received and assumed care; see interventions for assessment; vs stable at this time with pt. on bear hugger for temp of 97F rectally; see iv spreadsheet for gtts; pt. intubated/sedated/vented; pt. is a moosic pt. and will be transferring to [facility]/ ICU bed#232; AMIRA Sandoval-am nurse-gave report to AMIRA Cooney; ETA for [facility] is 20:00; will cont. to monitor.
--- NOTE | 2020-07-11 19:35 | NUR ---
Report given to Eros COLLIER at [facility], . Will be going to room 232 ICU.
--- NOTE | 2020-07-11 20:27 | NUR ---
[facility] at bedside to transport pt.; report given to [facility] RN; pt. vs stable at this time.
--- NOTE | 2020-07-11 20:45 | NUR ---
[facility] off ICU unit; informed [facility] ICU that pt. is off our unit and in route to their facility.
[2020-07-12] MEDS ORDERED: LINEZOLID 600MG/300ML 300 ML IV SCH (05:00)
== END 2020-07-11 20:45 | disposition short-term general hospital (02) | DRG 871 ==
LOC: EDBD 15:14 → ER 15:14 → TELE 15:15 → ICU WEST 21:38
PROVIDERS: ADMIT Hospitalist; ATTEND Internal Medicine
PROC: 0T9B70Z Drainage of Bladder with Drainage Device, Via Natural or Artificial Opening (ICD-10-PCS; 2020-07-07)
PROC: 5A1945Z Respiratory Ventilation, 24-96 Consecutive Hours (ICD-10-PCS; principal; 2020-07-11)
PROC: 0BH17EZ Insertion of Endotracheal Airway into Trachea, Via Natural or Artificial Opening (ICD-10-PCS; 2020-07-11)
PROC: 02HV33Z Insertion of Infusion Device into Superior Vena Cava, Percutaneous Approach (ICD-10-PCS; 2020-07-11)
PROC: 0W9B3ZZ Drainage of Left Pleural Cavity, Percutaneous Approach (ICD-10-PCS; 2020-07-11)
DX: A41.9 Sepsis, unspecified organism (principal); R65.21 Severe sepsis with septic shock; E43 Unspecified severe protein-calorie malnutrition; N17.0 Acute kidney failure with tubular necrosis; R53.2 Functional quadriplegia; J15.6 Pneumonia due to other Gram-negative bacteria; I50.43 Acute on chronic combined systolic (congestive) and diastolic (congestive) heart failure; J96.01 Acute respiratory failure with hypoxia; N18.6 End stage renal disease; D68.4 Acquired coagulation factor deficiency; J90 Pleural effusion, not elsewhere classified; E87.2 Acidosis; I13.2 Hypertensive heart and chronic kidney disease with heart failure and with stage 5 chronic kidney disease, or end stage renal disease; J44.0 Chronic obstructive pulmonary disease with (acute) lower respiratory infection; Q61.3 Polycystic kidney, unspecified; T86.19 Other complication of kidney transplant; E87.5 Hyperkalemia; N18.30 Chronic kidney disease, stage 3 unspecified; I25.10 Atherosclerotic heart disease of native coronary artery without angina pectoris; E11.8 Type 2 diabetes mellitus with unspecified complications; D64.9 Anemia, unspecified; D69.6 Thrombocytopenia, unspecified; E78.5 Hyperlipidemia, unspecified; F32.9 Major depressive disorder, single episode, unspecified; K21.9 Gastro-esophageal reflux disease without esophagitis; K29.70 Gastritis, unspecified, without bleeding; E11.22 Type 2 diabetes mellitus with diabetic chronic kidney disease; E11.65 Type 2 diabetes mellitus with hyperglycemia; E87.6 Hypokalemia; G40.909 Epilepsy, unspecified, not intractable, without status epilepticus; Z20.828 Contact with and (suspected) exposure to other viral communicable diseases; Y83.0 Surgical operation with transplant of whole organ as the cause of abnormal reaction of the patient, or of later complication, without mention of misadventure at the time of the procedure; Z79.4 Long term (current) use of insulin; Z79.899 Other long term (current) drug therapy; Z82.49 Family history of ischemic heart disease and other diseases of the circulatory system; Z83.3 Family history of diabetes mellitus; Z86.718 Personal history of other venous thrombosis and embolism; Z99.3 Dependence on wheelchair; Z88.5 Allergy status to narcotic agent; Z88.8 Allergy status to other drugs, medicaments and biological substances; Z79.891 Long term (current) use of opiate analgesic; Z79.01 Long term (current) use of anticoagulants; Z79.84 Long term (current) use of oral hypoglycemic drugs; Z79.82 Long term (current) use of aspirin; Z79.2 Long term (current) use of antibiotics
CPT/HCPCS: 10022; 31500; 36415; 36556; 36600; 71045; 71250; 76604; 76942; 80048; 80053; 80197; 80202; 81001; 82553; 82805; 82962; 83605; 83735; 83880; 83970; 83986; 84100; 84132; 84484; 85025; 85379; 85610; 85652; 85730; 86141; 86850; 86900; 86901; 87040; 87070; 87077; 87081; 87086; 87088; 87186; 87205; 87426; 89051; 93005; 94002; 94003; 94644; 96365; 96368; 99291; G0378; J0610; J0696; J1815; J1956; J2001; J2250; J2543; J3480; J3490; J7507; J7517